=== PATIENT | male | born 1950 | race Caucasian/White ===

== ENCOUNTER → 2016-08-13 | Outpatient (CLI) | payer OTHER ==
[~2016-08-13] VITALS: Ht 170.2 cm; Wt 71.6 kg
[~2016-08-13] MED LIST: ALEVE220 MG PO; DOXYCYCLINE 10100 MG PO; FLEXERIL PO; FLOVENT HFA 1110 MCG INH; GABAPENTIN PO; HYDROCODON-ACE1 EAC1 PO; IBUPROFEN 800800 M1 PO; LYRICA100 MG PO; LYRICA150 MG PO; MS CONTIN15 MG PO; NABUMETONE 500500 M1 PO; NEURONTIN600 MG PO; NEURONTIN800 MG PO; NORCO 10-325 T1 EACH PO; OXYCODONE-ACET1 EACH PO; OXYCODONE-APAP1 EAC6 PO; PERCOCET 10-321 EACH PO; SIMVASTATIN40 MG PO; SPIRIVA INH; SYMBICORT160 MCG/4. INH; TRAMADOL 50 MG50 MG PO; TRILEPTAL 300300 MG PO; TRILEPTAL150 MG PO; VENTOLIN HFA 1818 GM INH; WELLBUTRIN 75 M75 M1 PO; WELLBUTRIN XL150 MG PO; ZANAFLEX4 MG PO
--- NOTE | ~2016-08-13 | HPC ---
[facility] [place] [address] PAIN MANAGEMENT CONSULTATION Name: HANSEL RAMIREZ Room #: REG ALEKSEY Clemente#: [id number] Admission: 08/13/16 Attend Phys: Mao Santizo DO Discharge: Date of : 48 Report #: [id number] THIS REPORT FOR: //name// CC: Arnulfo Santizo The patient is a 66-year-old gentleman long treated for DJD, right shoulder, presumed DJD bilateral knees, lumbar radiculopathy requiring complex medication management. Last seen in the pain clinic 06/15/2016. Continued on MS Contin 15 mg b.i.d., Percocet 7.5/325 four a day. Advised to stop smoking. Continued on gabapentin and Lyrica (using these together due to cost concerns, he would prefer Lyrica solely, but cannot afford it, he takes gabapentin 600 mg t.i.d. and Lyrica 150 mg at bedtime), Tegretol 200 mg b.i.d. The patient was given epidural injection at last visit with significant improvement of pain with gradual return to baseline pain, which he is now found profoundly excruciating pain in the low back, right greater than left leg. Does have significant loss of growth in the right leg due to muscle wasting. The knee actually is fairly unremarkable on physical exam. I had ordered x-rays in the distant past, these are only modestly degenerative. I had ordered an MRI of the lumbar spine back in June 2016 noting moderate neural foraminal stenosis at multiple levels with severe neural foraminal stenosis @ L5-S1; primary right-sided symptoms likely attributable to severe facet arthritis at L3-L4 resulting in right neural foraminal stenosis. ASSESSMENT: 1. Symptomatic lumbar radiculopathy secondary to spinal stenosis, chronic pain syndrome requiring complex medication management, degenerative joint disease affecting right shoulder and to some degree in knees. We reviewed the fact that opiate medications are being used to provide analgesia adequate to support activities of daily living, not attempting to achieve a specific pain score on the 0-10 Visual Analog Scale. The current opiate medications are providing sufficient analgesia to allow the patient to participate in activities of daily living. The patient is not exhibiting any aberrant behavior suggestive of drug diversion. The patient is not having any adverse reactions to medications. The patient is not suffering from daytime somnolence or mental acuity changes. The patient is managing opiate-induced constipation with appropriate jvdr-zac-[id number] agents and dietary considerations. The patient was counseled on concern for caution with operating a motor vehicle while using opiate medications. A physical exam was performed and the patient's functional status was evaluated. All patients with back pain were advised against the bed rest greater than 4 days and were advised to return to normal activities. Pain score assessment was noted and the treatment plan was reviewed with the patient. All current medications, both prescribed and OTC were reviewed and reconciled on the electronic medical record. Tobacco screening was accomplished and smoking [address] [address] PAIN MANAGEMENT CONSULTATION Name: HANSEL RAMIREZ Room #: REG ALEKSEY Clemente#: [id number] Admission: 08/13/16 Attend Phys: Mao Santizo DO Discharge: Date of : 48 Report #: [id number] cessation was advised when indicated. BMI was noted and diet/exercise modification was recommended for all patients following outside normal parameters. I reviewed with the patient today their responsibilities to safeguard prescription medications, reviewed their responsibility to utilize medications only as prescribed by the physician. They are to seek and receive pain medications only from 1 physician group ( [facility]). They are to use 1 pharmacy and keep the clinic informed if they change pharmacies. Their responsibilities include making followup visits in a timely fashion and to avoid abrupt discontinuation of medication usage. Their responsibilities further include bringing their medications (bottles from the pharmacy with residual pills) to the visit for possible confirmation of pill counts and the patient understands it is their responsibility to submit to random drug screens to ensure both that the medications prescribed are present, and that no other controlled substances are present. All prescriptions provided today were generated electronically. RECOMMENDATION: We have elected to increase his baseline opiate from MS Contin 15 mg b.i.d to t.i.d., continue Percocet 7.5/325 up to 4 a day. This will equal to a total of about 90 mEq of morphine a day. We did talk about opiate tolerance and general ceiling effect of opiate over about 100 mEq of morphine. Urine drug screen in April 2016 was positive for prescribed medication. 2. Acute exacerbation of lumbar radiculopathy secondary to spinal stenosis. RECOMMENDATIONS: Repeat epidural injection under fluoroscopy today. PROCEDURE NOTE: Lumbar epidural injection under fluoroscopy. PROCEDURE NOTE: After both written and informed consent to include risk of spinal cord damage, increased pain, weakness and dural puncture, the patient was taken to the fluoroscopy suite, placed in the prone position. After sterile prep and drape, a skin wheal with lidocaine was raised. A 22-gauge epidural Tuohy needle was inserted in the midline at L3-L4 with good loss to resistance. Negative aspiration for cerebrospinal fluid or blood was noted. Then 1 mL of Omnipaque under biplanar fluoroscopy showed good spread within the epidural space. This was followed with 80 mg of triamcinolone plus 1 mL of 1.5% preservative-free Xylocaine, 0.5 mL Xylocaine was then injected to flush the needle; it was removed. The patient was monitored for an appropriate period of time and discharged in good and stable condition. <ELECTRONICALLY SIGNED> By: Mao Santizo DO 08/17/16 0917 1619 [id number] Mao Santizo DO /nt
[2016-08-13 13:18] VITALS: BP 163/88
== END ==
LOC: PAIN 07:20
DX: M54.16 Radiculopathy, lumbar region (principal); M19.011 Primary osteoarthritis, right shoulder; M17.0 Bilateral primary osteoarthritis of knee; M48.06 Spinal stenosis, lumbar region

== ENCOUNTER → 2016-08-18 | Outpatient (CLI) | payer OTHER | LOC: RAD 02:05 | DX: J44.9 Chronic obstructive pulmonary disease, unspecified (principal); R06.02 Shortness of breath ==

== ENCOUNTER → 2016-11-12 | Outpatient (CLI) | payer OTHER | LOC: MRI 04:35 | DX: M41.86 Other forms of scoliosis, lumbar region (principal); M47.816 Spondylosis without myelopathy or radiculopathy, lumbar region; M54.5 Low back pain ==

== ENCOUNTER → 2016-11-30 | Outpatient (CLI) | payer OTHER ==
[~2016-11-30] VITALS: Ht 165.1 cm; Wt 71.3 kg
--- NOTE | ~2016-11-30 | HPC ---
[facility] [address] [address] PAIN MANAGEMENT CONSULTATION Name: STEPH RAMIREZLAS RUBI Room #: REG ALEKSEY Clemente#: [id number] Admission: 11/30/16 Attend Phys: Mao Santizo DO Discharge: Date of : 48 Report #: [id number] THIS REPORT FOR: //name// CC: Arnulfo Santizo HISTORY OF PRESENT ILLNESS: The patient is a 66-year-old gentleman typically treated for DJD affecting bilateral knees, right shoulder, lumbar scoliosis, lumbar spondylosis, lumbar radiculopathy, axial back pain requiring complex medication management. He was last seen in pain clinic 10/08/2016. Continued on baseline medications. The patient has been stable on MS 15 mg t.i.d. (increased from b.i.d. in August), Percocet 7.5/325 four a day, increased to 10 mg of Percocet 4 times a day at last visit. Has been continued on Lyrica 150 mg at bedtime with gabapentin 800 mg t.i.d. The mixed dosing had been because of cost concerns, he wanted to stay on Lyrica, but cost was onerous. He is taking 2400 mg of gabapentin and would like to try and wean off the Lyrica. He asked about increasing the gabapentin to four a day (3200 mg). Unfortunately, he does have a little pretibial edema, which I think would be exacerbated by increasing the gabapentin dose. Does take Trileptal 300 mg t.i.d., tizanidine 4 mg 3 times a day for spasms at the last visit. He has had epidural injections x 2 with only nominal relief. He returns to pain clinic today. We had a prolonged visit, spent counseling both the patient and his discussing his therapeutic options. He was seen from 13:27-13:55. Greater than 50% of this time was spent counseling the patient. The patient did get an MRI of the lumbar spine. I spent a good deal of time reviewing the findings with the patient and discussing using the plastic model spine, patient's specific symptoms. His primary radicular symptoms had been right thigh pain, which has been present for greater than a decade, more recently has had some left lower pain more in the L5 distribution. The MRI does note severe disk narrowing at L3-L4 with bilateral, right greater than left neural foraminal narrowing at L3-L4, again likely compromising that right L3 nerve root attributable to his chronic right anterior thigh pain. The L4-L5 and L5-S1 areas do show again disk narrowing with neural foraminal narrowing, little greater on the left, at both levels with canals narrowed to about 8 mm at L4-L5, but again this is less likely problematic. Does have grade 1 spondylolisthesis at L5-S1. Does have some scoliosis in the thoracolumbar spine, a severe leftward convex scoliosis is noted, there is 4 mm grade 1 anterolisthesis at L5 and S1. Fortunately, in comparison to an 06/11/2014 study, this 11/12/2016 study does show no change in the scoliosis, findings generally similar to 2013. Again, patient is complaining primarily of pain right anterior thigh, left posterior leg to the foot, notes perhaps 50-70% relief with the medications, [facility] [address] [place] [address] PAIN MANAGEMENT CONSULTATION Name: HANSEL RAMIREZ Room #: ROBERTO Clemente#: [id number] Admission: 11/30/16 Attend Phys: Mao Santizo, DO Discharge: Date of : 48 Report #: [id number] less relief with epidural injections. He does have an appointment to see Dr. Sourav Cohn at [facility] on Wednesday. We talked today about therapeutic options. He may benefit from a decompressive surgery, perhaps even fusion, but again we will defer to surgery. Regarding Lyrica, I gave patient samples with the 50 mg tablets, this dropped from his current 150 mg tablet 1 a day to two 50 mg tablets at bedtime for about 5 nights, of 100 mg dosage (and then dropped to 50 mg for about another 10 days and discontinue). I suspect he will not see significant change in neuropathic pain, given that he is already on 2400 mg of another calcium channel membrane stabilizing agent (gabapentin) and a therapeutic dose of a sodium channel membrane stabilizing agent (Trileptal 300 mg 3 times a day). We reviewed the fact that opiate medications are being used to provide analgesia adequate to support activities of daily living, not attempting to achieve a specific pain score on the 0-10 Visual Analog Scale. The current opiate medications are providing sufficient analgesia to allow the patient to participate in activities of daily living. The patient is not exhibiting any aberrant behavior suggestive of drug diversion. The patient is not having any adverse reactions to medications. The patient is not suffering from daytime somnolence or mental acuity changes. The patient is managing opiate-induced constipation with appropriate zruh-nvt-aeflwgi agents and dietary considerations. The patient was counseled on concern for caution with operating a motor vehicle while using opiate medications. A physical exam was performed and the patient's functional status was evaluated. All patients with back pain were advised against the bed rest greater than 4 days and were advised to return to normal activities. Pain score assessment was noted and the treatment plan was reviewed with the patient. All current medications, both prescribed and OTC were reviewed and reconciled on the electronic medical record. Tobacco screening was accomplished and smoking cessation was advised when indicated. BMI was noted and diet/exercise modification was recommended for all patients following outside normal parameters. I reviewed with the patient today their responsibilities to safeguard prescription medications, reviewed their responsibility to utilize medications only as prescribed by the physician. They are to seek and receive pain medications only from 1 physician group ([facility]). They are to use 1 pharmacy and keep the clinic informed if they change pharmacies. Their responsibilities include making followup visits in a timely fashion and to avoid abrupt discontinuation of medication usage. Their responsibilities further include bringing their medications (bottles from the pharmacy with residual pills) to the visit for possible confirmation of pill counts and the patient understands it is their responsibility to submit to random drug screens to ensure both that the medications prescribed are present, and that no other [address] [address] PAIN MANAGEMENT CONSULTATION Name: RAMIREZHANSEL RENICK Room #: REG ALEKSEY Clemente#: [id number] Admission: 11/30/16 Attend Phys: Mao Santizo DO Discharge: Date of : 48 Report #: [id number] controlled substances are present. All prescriptions provided today were generated electronically. PHYSICAL EXAMINATION: Shows a pleasant frustrated 66-year-old gentleman, BMI is 26.1 kilograms per meter squared. He continues to smoke greater than a pack a day. Blood pressure is 139/76, pulse 77, respirations 16. He is wearing his usual body armour, bilateral knee braces and an abdominal binder. Rises from chair using armrest, markedly antalgic gait. Lower extremity strength is symmetric. Positive straight leg raise on the left, slight decreased right hip flexion strength. ASSESSMENT: Symptomatic lumbar radiculopathy secondary to spinal stenosis, radiculopathy, scoliosis, axial back pain requiring complex medication management, stable on baseline medications. Last urine drug screen 04/13/2016 was positive for prescribed medications. RECOMMENDATIONS: Continue MS Contin 15 mg 3 times a day, Percocet 10/325 up to 4 a day, roughly equating to about 105 mEq of morphine a day. This is a theoretical ceiling dose. Continue gabapentin 800 mg t.i.d., wean Lyrica as noted above, continue Trileptal 300 mg t.i.d., tizanidine 4 mg t.i.d. and follow up simply 2 months for reevaluation. I did ask that he have copy of the consult from Dr. Cohn sent to our clinic. By: [id number] Mao Santizo DO /nt
[2016-11-30 13:17] VITALS: BP 139/76
== END | disposition home or self-care (01) ==
LOC: PAIN 07:47
DX: M48.06 Spinal stenosis, lumbar region (principal); G89.29 Other chronic pain; M41.86 Other forms of scoliosis, lumbar region; M54.9 Dorsalgia, unspecified; F17.210 Nicotine dependence, cigarettes, uncomplicated

== ENCOUNTER → 2016-12-29 | Outpatient (CLI) | payer OTHER | LOC: RAD 12:15 | DX: M41.86 Other forms of scoliosis, lumbar region (principal); M41.84 Other forms of scoliosis, thoracic region ==

== ENCOUNTER 2017-01-02 16:20 | Emergency (ER) | payer OTHER ==
[~2017-01-02] VITALS: Ht 165.1 cm; Wt 70.3 kg
--- NOTE | ~2017-01-02 | EKG ---
[address] [address] ELECTROCARDIOGRAM REPORT Name: RAMIREZHANSEL RUBI [facility] [id number] Admission: 01/02/17 Attend Phys: Discharge: 01/02/17 Date of : 48 Report #: [id number] THIS REPORT FOR: //name// [facility] ED Test Date: 2017-01-02 Test Time: 16:48:03 Pat Name: HANSEL RAMIREZ Department: Room: Gender: M [employer]: : 1950 Requested By: Andrea Cali Order Number: [id number] MD: Leoncio Beyer Measurements Intervals [place] Rate: 103 P: -71 CA: 188 QRS: 54 QRSD: 146 T: 237 QT: 336 QTc: 440 Interpretive Statements Sinus rhythm Left bundle branch block No previous ECG available for comparison Electronically Signed On 01-03-2017 20:18:56 CDT by Leoncio Beyer [email or web address] <ELECTRONICALLY SIGNED> By: Leoncio Beyer MD 01/03/172017 1648 1648 MD REFUGIO Branch
[2017-01-02 16:51] LABS: ABG SAMPLE TYPE ARTERIAL; BE(vivo) -0.8 mmol/L (-2 to +3); HCO3 23.2 mmol/L (22.0-26.0); LACTATE 1.12 mmol/L (0.5-2.0); O2(CT) 18.1 mL/dL (15.0-23.0); O2Hb 90.3 % (92.0-98.0); PCO2 36.5 mmHg (35.0-45.0); PO2 63.3 mmHg (80.0-100.0); pH 7.421 (7.360-7.450); sO2 92.8 % (92.0-98.0); tCO2 24.3 mmol/L (24.0-30.0)
[2017-01-02 16:52] LABS: STICK SITE R.RADIAL
[2017-01-02 17:10] LABS: ABSOLUTE NEUTROPHILS 5.2 thou/uL (1.4-8.2); BASOPHILS 0.6 % (0.0-2.0); EOSINOPHILS 6.6 % (0.0-3.0); HEMATOCRIT 39.3 % (42.0-52.0); HEMOGLOBIN 13.3 gm/dL (14.0-18.0); LYMPHOCYTES 23.3 % (24.0-44.0); MCH 28.9 pg (26.0-34.0); MCHC 33.9 g/dL (28.0-37.0); MCV 85.2 fL (80.0-100.0); MONOCYTES 9.7 % (1.0-8.0); PLATELET COUNT 365 thou/uL (150-400); POLYS 59.8 % (36.0-66.0); RBC 4.61 mil/uL (4.50-6.00); RDW 13.8 % (10.5-14.5); WBC 8.8 thou/uL (4.0-11.0)
[2017-01-02 17:11] LABS: MANUAL DIFF NO
[2017-01-02] MEDS ORDERED: ANORO ELLIPTA1 EACH IH (17:19)
[2017-01-02] MEDS ORDERED: CENTRUM SILVER1 EAC2 PO (17:20)
[2017-01-02] MEDS ORDERED: NEPHROCAPS SOFT1 CAP PO (17:20)
[2017-01-02] MEDS ORDERED: GLUCOSAMINE HC500 MG PO (17:20)
[2017-01-02] MEDS ORDERED: FISH OIL 1,001000 M2 PO (17:21)
[2017-01-02] MEDS ORDERED: PROBIOTIC1 EAC1 PO (17:21)
[2017-01-02 17:24] LABS: CALCIUM 9.7 mg/dL (8.5-10.1); CREATININE 0.7 mg/dL (0.7-1.3); POTASSIUM 4.7 mmol/L (3.5-5.1)
[2017-01-02 17:36] LABS: MAGNESIUM 2.1 mg/dL (1.8-2.4); TOTAL BILIRUBIN 0.2 mg/dL (<0.1-1.0); TOTAL PROTEIN 7.5 g/dL (6.4-8.2); TROPONIN-I 0.04 ng/mL (<0.04-0.07)
[2017-01-02] MEDS ORDERED: PREDNISONE 20 M20 MG PO (17:46)
== END 2017-01-02 18:44 | disposition home or self-care (01) ==
LOC: ER 16:20
PROVIDERS: Emergency Medicine
DX: J44.1 Chronic obstructive pulmonary disease with (acute) exacerbation (principal); M54.40 Lumbago with sciatica, unspecified side; M41.9 Scoliosis, unspecified; F17.210 Nicotine dependence, cigarettes, uncomplicated; Z98.890 Other specified postprocedural states; Z85.51 Personal history of malignant neoplasm of bladder

== ENCOUNTER 2017-01-13 00:49 | Emergency (ER) | payer OTHER ==
[~2017-01-13] VITALS: Ht 175.3 cm; Wt 65.8 kg
--- NOTE | ~2017-01-13 | EKG ---
[place] [address] [facility] [employer] [place] [address] ELECTROCARDIOGRAM REPORT Name: HANSEL RAMIREZ RUBI [facility] [id number] Admission: 01/13/17 Attend Phys: Discharge: 01/13/17 Date of : 48 Report #: [id number] THIS REPORT FOR: //name// [facility] ED Test Date: 2017-01-13 Test Time: 00:54:29 Pat Name: HANSEL RAMIREZ Department: Room: Gender: M [employer]: : 1950 Requested By: Lisette Malagon Order Number: [id number] MD: Terrell Ram Measurements Intervals [place] Rate: 109 P: 0 UT: 170 QRS: 55 QRSD: 150 T: 234 QT: 340 QTc: 458 Interpretive Statements Sinus tachycardia Left bundle branch block Baseline wander in lead(s) II,aVR Compared to ECG 01/02/2017 16:48:03 No significant changes found Electronically Signed On 01-13-2017 8:41:52 CDT by Terrell Ram [email or web address] <ELECTRONICALLY SIGNED> By: Terrell Ram MD, [facility] 01/13/17 0841 Terrell Ram MD, [facility] /EPI
[~2017-01-13 00:49] MED LIST changes: +ANORO ELLIPTA1 EACH IH; +CENTRUM SILVER1 EAC2 PO; +FISH OIL 1,001000 M2 PO; +GLUCOSAMINE HC500 MG PO; +NEPHROCAPS SOFT1 CAP PO; +PREDNISONE 20 M20 MG PO; +PROBIOTIC1 EAC1 PO
[2017-01-13 01:05] LABS: EOSINOPHILS 5.7 % (0.0-3.0); HEMATOCRIT 43.4 % (42.0-52.0); HEMOGLOBIN 14.3 gm/dL (14.0-18.0); LYMPHOCYTES 38.4 % (24.0-44.0); MCH 28.6 pg (26.0-34.0); MCV 86.7 fL (80.0-100.0); MONOCYTES 8.2 % (1.0-8.0); PLATELET COUNT 380 thou/uL (150-400); POLYS 46.7 % (36.0-66.0); RBC 5.01 mil/uL (4.50-6.00); RDW 14.1 % (10.5-14.5); WBC 10.7 thou/uL (4.0-11.0)
[2017-01-13 01:09] LABS: MANUAL DIFF NO
[2017-01-13 01:09] LABS: ABG SAMPLE TYPE ARTERIAL; HCO3 24.2 mmol/L (22.0-26.0); LACTATE 1.63 mmol/L (0.5-2.0); O2(CT) 21.4 mL/dL (15.0-23.0); O2Hb 97.7 % (92.0-98.0); PCO2 51.6 mmHg (35.0-45.0); PO2 548.6 mmHg (80.0-100.0); STICK SITE L.BRACHIAL; pH 7.289 (7.360-7.450); sO2 99.9 % (92.0-98.0); tCO2 25.8 mmol/L (24.0-30.0)
[2017-01-13 01:10] LABS: Pressure Support 10 cm H20
[2017-01-13 01:10] LABS: ANION GAP 10 mmol/L (7-16); BUN 19 mg/dL (7-18); CALCIUM 9.4 mg/dL (8.5-10.1); CHLORIDE 95 mmol/L (98-107); CO2 26 mmol/L (21-32); CREATININE 0.8 mg/dL (0.7-1.3); GLUCOSE 222 mg/dL (74-106); POTASSIUM 4.3 mmol/L (3.5-5.1); SODIUM 131 mmol/L (136-145)
[2017-01-13 01:23] LABS: NT-PRO BRAIN NAT PEPTIDE 1577 pg/mL (<300); TROPONIN-I < 0.04 ng/mL (<0.04-0.07)
[2017-01-13] MEDS ORDERED: PREDNISONE50 MG PO (02:35)
== END 2017-01-13 02:52 | disposition home or self-care (01) ==
LOC: ER 00:49
PROVIDERS: Emergency Medicine
DX: J44.1 Chronic obstructive pulmonary disease with (acute) exacerbation (principal); F17.210 Nicotine dependence, cigarettes, uncomplicated; F10.99 Alcohol use, unspecified with unspecified alcohol-induced disorder; Z98.890 Other specified postprocedural states

== ENCOUNTER 2017-01-16 07:16 | Inpatient (IN) | payer OTHER ==
[~2017-01-16] VITALS: Ht 165.1 cm; Wt 66.2 kg
--- NOTE | ~2017-01-16 | HC ---
[facility] [place] [address] CONSULTATION Name: HANSEL RAMIREZ GAP Room #: 312-P ADM IN M.R.#: [id number] Admission: 01/16/17 Attend Phys: Kenneth Bermudez MD Discharge: Date of : 48 Report #: [id number] THIS REPORT FOR: //name// CC: Arnulfo Bermudez DATE OF SERVICE: 01/16/2017 REASON FOR CONSULTATION: Exacerbation of chronic obstructive pulmonary disease. IMPRESSION: 1. Exacerbation of chronic obstructive pulmonary disease. 2. Possible cor pulmonale. 3. Bullous emphysema. 4. Indeterminate soft tissue fullness in upper abdomen, follow up per primary. 5. Elevated BNP. 6. Leukocytosis. 7. Normocytic anemia. 8. History of bladder cancer. 9. History of depression. 10. Tobacco abuse. PLAN: 1. IV corticosteroids, antibiotics and do sputum aerosol therapy. Monitor sat, may need home O2 in a sleep study. 2. We will mildly diurese. We will check echo for pulmonary hypertension. HISTORY OF PRESENT ILLNESS: This is a very pleasant 66-year-old male comes in with shortness of breath. He has been in ER 01/02/2017, 01/13/2017 actually received BiPAP on that day, but wanted to go home and admitted today because of exacerbation. He relates he continues to have periods of shortness breath, was seen by Dr. Saha yesterday and had his medications change last night and could not do a breathing treatment. He does not have home O2. This a.m. he felt like he could not breathe, cough in the morning, some sputum production and discussed with Dr. Malagon. PAST MEDICAL HISTORY: Surgeries include appendectomy, bladder tumor excision 2002, 2003, hernia repair, kidney stone removal. FAMILY HISTORY: Positive for Alzheimer, breast CA, heart disease and hyperlipidemia. SOCIAL HISTORY: Positive tobacco, approximately 50 years. Positive ETOH 1-2 drinks a week. ALLERGIES: No known. [facility] [address] [place] [address] CONSULTATION Name: HANSEL RAMIREZ GAP Room #: [address] [place] [address] [place] .R.#: [id number] Admission: 01/16/17 Attend Phys: Kenneth Bermudez MD Discharge: Date of : 46 Report #: [id number] REVIEW OF SYSTEMS: Wears glasses, shortness breath, cough, phlegm production peripheral edema, occasional indigestion, no hemoptysis, hematemesis or hematuria. HOME MEDICATIONS: Included prednisone, B complex, glucosamine, bupropion, gabapentin, DuoNeb, morphine, probiotics, simvastatin, Anoro and Ventolin. PHYSICAL EXAMINATION: VITAL SIGNS: BP initially 181/105, pulse 106, respirations 17. Pulse ox 96% on 2 liters. HEENT: Eyes, negative icterus. NECK: Negative JVD. Mallampati 2. LUNGS: Decreased breath sounds bilaterally with wheeze and cough. HEART: Regular. ABDOMEN: Bowel sounds present. EXTREMITIES: Showed positive edema. Moves all. NEUROLOGIC: Alert and oriented. LABORATORY DATA: A CT PE protocol showed no emboli, mild scarring, atelectasis posterior lower lungs, mild bullous emphysematous changes indeterminate, soft tissue fullness visualized upper abdomen. BUN 20, creatinine 0.7. ProBNP 1261. White count 11.3, hemoglobin 13.4, platelets 369, no bands. PH 7.457, pCO2 of 37, pO2 of 58.5 on room air. We will follow closely with you. By: 0950 23 Aimee Boyce MD /nt
--- NOTE | ~2017-01-16 | 2DMMODE ---
[facility] [place] [employer] [address] 2 D/M-MODE ECHOCARDIOGRAM Name: RAMIREZHANSEL RAY Room #: 312-P [facility] IN .R.#: [id number] Admission: 01/16/17 Attend Phys: Arnulfo Yeung, Discharge: Date of : 46 Date of Service: 01/18/17 1218 Report #: [id number] THIS REPORT FOR: //name// APPROVED REPORT Study performed: 01/18/2017 09:28:56 EXAM: Comprehensive 2D, Doppler, and color-flow Echocardiogram Patient Location: Bedside Room #: 312 Other Information Study Quality: Technically Difficult Indications COPD Dyspnea 2D Dimensions RVDd: 42.24 mm LVEF(%): 53.86 (>50%) IVSd: 13.99 (7-11mm) LVOT Diam: 20.24 (18-24mm) LVDd: 43.56 mm PWd: 12.97 (7-11mm) Ascending Ao: 29.64 (22-36mm) LVDs: 31.53 (25-40mm) Aortic Root: 30.05 mm IVC: 10.00 mm Edwards's LVEF: 53.86 % Volumes Left Atrial Volume (Systole) Single Plane 4CH: 29.56 mL Single Plane 2CH: 63.00 mL LA ESV Index: 29.00 mL/m2 Aortic Valve AoV Peak Osmel.: 2.11 m/s AO Peak Gr.: 17.89 mmHg LVOT Max P.11 mmHg LVOT Max V: 1.24 m/s OCTAVIO Vmax: 1.88 cm2 Mitral Valve E/A Ratio: 0.6 MV Decel. Time: 163.38 ms MV E Max Osmel.: 1.01 m/s MV A Osmel.: 1.68 m/s MV PHT: 47.38 ms [facility] [place] [address] 2 D/M-MODE ECHOCARDIOGRAM Name: HANSEL RAMIREZ LOCKHART Room #: 312-P [facility] IN ..#: [id number] Admission: 01/16/17 Attend Phys: Arnulfo Yeung, Discharge: Date of : 46 Date of Service: 01/18/17 1218 Report #: [id number] IVRT: 155.71 ms Pulmonary Valve PV Peak Osmel.: 1.40 m/s PV Peak Gr.: 7.82 mmHg Pulmonary Vein P Vein S: 0.67 m/s P Vein A: 0.21 m/s P Vein D: 0.64 m/s P Vein A Dur.: 72.7 msec P Vein S/D Ratio: 1.05 Tricuspid Valve RAP Estimate: 5.00 mmHg Left Ventricle The left ventricle is normal size. Mild to moderate left ventricular hypertrophy. The left ventricular systolic function is normal. The left ventricular ejection fraction is within the normal range. LVEF is 55%. Grade I - abnormal relaxation pattern. Right Ventricle Right ventricle is dilated. The right ventricular systolic function is normal. Atria Left atrium is at the upper limits of normal. Right atrium is at the upper limits of normal. Aortic Valve The aortic valve is not well visualized. Trace aortic regurgitation. There is no aortic valvular stenosis. Mitral Valve The mitral valve is normal in structure. There is no mitral valve regurgitation noted. No evidence of mitral valve stenosis. Tricuspid Valve The tricuspid valve is normal in structure. There is no tricuspid valve regurgitation noted. Unable to assess PA pressure. Pulmonic Valve Pulmonic valve is not well visualized. There is no pulmonic valvular regurgitation. Great Vessels The aortic root is normal in size. IVC is normal in size and collapses >50% with inspiration. [facility] [address] [place] [address] 2 D/M-MODE ECHOCARDIOGRAM Name: RAMIREZHANSEL LOCKHART Room #: 312-P [facility] IN [facility]#: [id number] Admission: 01/16/17 Attend Phys: Arnulfo Yeung, Discharge: Date of : 46 Date of Service: 01/18/17 1218 Report #: [id number] Pericardium There is no pericardial effusion. There is no pleural effusion. <Conclusion> The left ventricle is normal size. LVEF is 55%. Right ventricle is dilated. The aortic valve is not well visualized. Trace aortic regurgitation. The mitral valve is normal in structure. The tricuspid valve is normal in structure. <ELECTRONICALLY SIGNED> By: Tyshawn Cavanaugh MD 01/18/17 1218 1218 1218 Tyshawn Cavanaugh MD /INF
[~2017-01-16 07:16] MED LIST changes: +PREDNISONE50 MG PO
[2017-01-16 07:17] VITALS: BP 181/105
[2017-01-16] MEDS ORDERED: LYRICA 50 MG50 MG PO (07:26)
[2017-01-16] MEDS ORDERED: WELLBUTRIN XL300 MG PO (07:26)
[2017-01-16 07:36] LABS: ABG SAMPLE TYPE ARTERIAL; BE(vivo) 1.9 mmol/L (-2 to +3); HCO3 25.5 mmol/L (22.0-26.0); LACTATE 1.23 mmol/L (0.5-2.0); O2(CT) 17.5 mL/dL (15.0-23.0); O2Hb 89.7 % (92.0-98.0); PO2 58.5 mmHg (80.0-100.0); STICK SITE R.RADIAL; pH 7.457 (7.360-7.450); sO2 91.8 % (92.0-98.0); tCO2 26.7 mmol/L (24.0-30.0)
[2017-01-16 07:38] LABS: ABSOLUTE NEUTROPHILS 5.7 thou/uL (1.4-8.2); EOSINOPHILS 0.9 % (0.0-3.0); HEMATOCRIT 39.4 % (42.0-52.0); HEMOGLOBIN 13.4 gm/dL (14.0-18.0); LYMPHOCYTES 41.2 % (24.0-44.0); MCH 28.6 pg (26.0-34.0); MCHC 34.1 g/dL (28.0-37.0); MCV 84.1 fL (80.0-100.0); MONOCYTES 6.6 % (1.0-8.0); PLATELET COUNT 369 thou/uL (150-400); POLYS 50.3 % (36.0-66.0); RBC 4.69 mil/uL (4.50-6.00); RDW 14.3 % (10.5-14.5); WBC 11.3 thou/uL (4.0-11.0)
[2017-01-16 07:40] LABS: MANUAL DIFF NO
[2017-01-16 07:49] LABS: CALCIUM 9.8 mg/dL (8.5-10.1); CREATININE 0.7 mg/dL (0.7-1.3); POTASSIUM 4.1 mmol/L (3.5-5.1)
[2017-01-16 10:28] VITALS: BP 138/65
[2017-01-16 11:13] VITALS: BP 174/105
[2017-01-16 17:21] VITALS: BP 142/68
[2017-01-16 20:08] VITALS: BP 149/77
[2017-01-16 23:40] VITALS: BP 155/74
[2017-01-17 04:00] VITALS: BP 169/84
[2017-01-17 04:47] LABS: ABSOLUTE NEUTROPHILS 7.9 thou/uL (1.4-8.2); BASOPHILS 0.1 % (0.0-2.0); HEMOGLOBIN 12.9 gm/dL (14.0-18.0); LYMPHOCYTES 15.6 % (24.0-44.0); MCH 28.4 pg (26.0-34.0); MCHC 33.1 g/dL (28.0-37.0); MCV 85.6 fL (80.0-100.0); MONOCYTES 4.1 % (1.0-8.0); PLATELET COUNT 369 thou/uL (150-400); POLYS 80.2 % (36.0-66.0); RBC 4.56 mil/uL (4.50-6.00); RDW 14.5 % (10.5-14.5); WBC 9.8 thou/uL (4.0-11.0)
[2017-01-17 04:53] LABS: MANUAL DIFF NO
[2017-01-17 05:01] LABS: CALCIUM 9.6 mg/dL (8.5-10.1); CREATININE 0.8 mg/dL (0.7-1.3); POTASSIUM 4.3 mmol/L (3.5-5.1)
[2017-01-17] MEDS ORDERED: GABAPENTIN800 M1 PO (05:39)
[2017-01-17 07:45] VITALS: BP 146/80
[2017-01-17 15:54] VITALS: BP 149/78
[2017-01-17 19:58] VITALS: BP 145/82
[2017-01-18 04:17] VITALS: BP 150/79
[2017-01-18 07:20] VITALS: BP 156/90
[2017-01-18 20:25] VITALS: BP 160/88
[2017-01-19 04:25] VITALS: BP 168/98
[2017-01-19 07:31] VITALS: BP 157/81
[2017-01-19] MEDS ORDERED: DOXYCYCLINE 10100 MG PO (10:29)
[2017-01-19] MEDS ORDERED: SYMBICORT160 MCG/4. INH (10:30)
[2017-01-19] MEDS ORDERED: XANAX 0.5 MG0.5 MG PO (10:31)
[2017-01-19 14:43] VITALS: BP 157/81
[2017-01-19 15:28] VITALS: BP 157/81
[2017-01-21] MEDS ORDERED: XANAX 0.5 MG0.5 MG PO (12:49)
[2017-01-21] MEDS ORDERED: SYMBICORT160 MCG/4. INH (12:50)
[2017-01-21] MEDS ORDERED: MS CONTIN15 MG PO (13:07)
[2017-01-21] MEDS ORDERED: PERCOCET 7.5-31 EACH PO (13:07)
[2017-01-21] MEDS ORDERED: OXYCODONE-APAP1 EAC6 PO (13:07)
== END 2017-01-19 16:07 | disposition home or self-care (01) | DRG 291 ==
LOC: ER 07:16 → 3N 09:38 → EROBS 09:38 → 3N 10:02
PROVIDERS: Emergency Medicine; Family Medicine
DX: I11.0 Hypertensive heart disease with heart failure (principal); J96.21 Acute and chronic respiratory failure with hypoxia; J44.1 Chronic obstructive pulmonary disease with (acute) exacerbation; I50.43 Acute on chronic combined systolic (congestive) and diastolic (congestive) heart failure; F41.9 Anxiety disorder, unspecified; M41.9 Scoliosis, unspecified; F17.210 Nicotine dependence, cigarettes, uncomplicated; D72.829 Elevated white blood cell count, unspecified; D64.9 Anemia, unspecified; F32.9 Major depressive disorder, single episode, unspecified; I27.2 Other secondary pulmonary hypertension; Z71.6 Tobacco abuse counseling; Z85.51 Personal history of malignant neoplasm of bladder; Z82.0 Family history of epilepsy and other diseases of the nervous system; Z82.49 Family history of ischemic heart disease and other diseases of the circulatory system; Z83.49 Family history of other endocrine, nutritional and metabolic diseases
CPT/HCPCS: 10795

== ENCOUNTER → 2017-01-21 | Outpatient (CLI) | payer OTHER ==
[~2017-01-21] VITALS: Ht 165.1 cm; Wt 63.0 kg
[~2017-01-21] MED LIST changes: +GABAPENTIN800 M1 PO; +LYRICA 50 MG50 MG PO; +PERCOCET 7.5-31 EACH PO; +WELLBUTRIN XL300 MG PO; +XANAX 0.5 MG0.5 MG PO
--- NOTE | ~2017-01-21 | HPC ---
[facility] [place] [address] PAIN MANAGEMENT CONSULTATION Name: JAMESHANSEL RUBI Room #: REG Yoav Clemente#: [id number] Admission: 01/21/17 Attend Phys: Mao Santizo DO Discharge: Date of : 48 Report #: [id number] THIS REPORT FOR: //name// CC: Arnulfo Santizo The patient is a 66-year-old gentleman well known to the pain clinic. I have long treated him for DJD affecting bilateral knees, and right shoulder pain. He has thoracolumbar scoliosis and spondylosis. Last seen in pain clinic, 11/30/2016, continued on baseline medication including MS Contin 15 mg t.i.d. and Percocet 7.5/325 four times a day, gabapentin was increased from 800 mg t.i.d. to q.i.d. and we discontinued Lyrica. He uses Trileptal 300 mg t.i.d. as well with muscle spasm medication, tizanidine 4 mg t.i.d. Last urine drug screen 04/13/2016 was positive for prescribed medications. The patient returns to pain clinic today, we had a prolonged visit from 12:51-13:18. Greater than 50% of this 25+ minute visit was spent counseling the patient. In the interval since I saw him, he was admitted to the hospital January 16 through the with exacerbation of COPD. He has been a chronic smoker and I have admonished him routinely to quit smoking. He was apparently admitted to the hospital on his third acute exacerbation of COPD and actually had a fairly significant fright to the point that he is now a nonsmoker. He is doing pulmonary rehab. He presents to the pain clinic today in the company of his . He did finally accomplish the CT myelogram that we had been working to get, this was accomplished 11/12/2016 at [facility], 12/16/2016. We reviewed those results, he has lumbar scoliosis with severe chronic degenerative changes throughout the lumbar spine, lateral translation of L1 to the right of L2, translation of L3 to the left of L4 and L4 to the left of L5, right lateral recess stenosis with severe right neural foraminal stenosis at L1-L2, severe right neural foraminal stenosis at L2-L3, severe spinal stenosis at L3-L4 with bilateral neural foraminal stenosis. L5 superior facet projects into the left side of spinal canal at L4-L5, moderate bilateral L4-L5 neural foraminal stenosis, spondylolisthesis at L4-L5 with severe left apophyseal joint disease, severe, left L5-S1 neural foraminal stenosis. The patient apparently has an appointment next week to see Dr. Darius Orta for discussion on possible surgical intervention. Given his rather tenuous pulmonary status, I really suspect he is not going to be a candidate for fairly extensive surgery. The patient notes his pain is a 5 on a 0-10 visual analog scale. [place] [address] PAIN MANAGEMENT CONSULTATION Name: HANSEL RAMIREZ Room #: REG ALEKSEY Clemente#: [id number] Admission: 01/21/17 Attend Phys: Mao Santizo, DO Discharge: Date of : 48 Report #: [id number] okay in the pool, but any time he does any land exercises, pain significantly interferes with function. He is using a cane in his right hand. Pain is right greater than left low back and legs. PHYSICAL EXAMINATION: Otherwise unchanged. A 66-year-old gentleman, BMI is 23.1 kilograms per meter squared. Blood pressure 155/80, pulse 89, respirations 16, room air oxygen saturation is 90% and is actually pretty good for him. Markedly antalgic gait, kyphotic, scoliotic back. Diffuse axial tenderness. He is wearing an abdominal binder as well as a right knee brace. We reviewed the fact that opiate medications are being used to provide analgesia adequate to support activities of daily living, not attempting to achieve a specific pain score on the 0-10 Visual Analog Scale. The current opiate medications are providing sufficient analgesia to allow the patient to participate in activities of daily living. The patient is not exhibiting any aberrant behavior suggestive of drug diversion. The patient is not having any adverse reactions to medications. The patient is not suffering from daytime somnolence or mental acuity changes. The patient is managing opiate-induced constipation with appropriate tmbw-gkf-talwwfj agents and dietary considerations. The patient was counseled on concern for caution with operating a motor vehicle while using opiate medications. A physical exam was performed and the patient's functional status was evaluated. All patients with back pain were advised against the bed rest greater than 4 days and were advised to return to normal activities. Pain score assessment was noted and the treatment plan was reviewed with the patient. All current medications, both prescribed and OTC were reviewed and reconciled on the electronic medical record. Tobacco screening was accomplished and smoking cessation was advised when indicated. BMI was noted and diet/exercise modification was recommended for all patients following outside normal parameters. I reviewed with the patient today their responsibilities to safeguard prescription medications, reviewed their responsibility to utilize medications only as prescribed by the physician. They are to seek and receive pain medications only from 1 physician group ( [facility]). They are to use 1 pharmacy and keep the clinic informed if they change pharmacies. Their responsibilities include making followup visits in a timely fashion and to avoid abrupt discontinuation of medication usage. Their responsibilities further include bringing their medications (bottles from the pharmacy with residual pills) to the visit for possible confirmation of pill counts and the patient understands it is their responsibility to submit to random drug screens to ensure both that the medications prescribed are present, and that no other controlled substances are present. All prescriptions provided today were generated electronically. [address] [address] PAIN MANAGEMENT CONSULTATION Name: HANSEL RAMIREZ RUBI [facility] [id number] Admission: 01/21/17 Attend Phys: Mao Santizo DO Discharge: Date of : 48 Report #: [id number] ASSESSMENT: Chronic pain, degenerative joint disease affecting knees and right shoulder, thoracolumbar spondylosis and scoliosis. RECOMMENDATION: Long discussion with the patient today about therapeutic option. ____ we have elected to continue schedule 2 narcotic unchanged. I will be curious to see what the surgical consultants feel is appropriate for his back. If he is not a surgical candidate and he has ongoing pain, we could consider spinal cord stimulator trial. It may help with some of the radicular component of back pain, although his arthritic pain would not be addressed with this to any appreciable fashion. The patient was discharged in good and stable condition after prolonged visit. Follow up in 2 months for reevaluation, earlier if needed. By: [id number] 11 Mao Santizo DO /giselle
[2017-01-21 12:42] VITALS: BP 155/80
== END | disposition home or self-care (01) ==
LOC: PAIN
DX: M17.0 Bilateral primary osteoarthritis of knee (principal); M19.011 Primary osteoarthritis, right shoulder; G89.29 Other chronic pain; M47.895 Other spondylosis, thoracolumbar region; J44.1 Chronic obstructive pulmonary disease with (acute) exacerbation; F11.20 Opioid dependence, uncomplicated; M41.85 Other forms of scoliosis, thoracolumbar region; Z87.891 Personal history of nicotine dependence; Z98.890 Other specified postprocedural states

== ENCOUNTER → 2017-03-25 | Outpatient (CLI) | payer OTHER ==
[~2017-03-25] VITALS: Ht 165.1 cm; Wt 68.0 kg
[~2017-03-25] MED LIST changes: +PREDNISONE 10 M10 MG PO; +PREDNISONE 5 MG5 M1 PO
--- NOTE | ~2017-03-25 | HPC ---
[address] [address] PAIN MANAGEMENT CONSULTATION Name: HANSEL RAMIREZ Room #: REG [facility] Chyna#: [id number] Admission: 03/25/17 Attend Phys: Mao Santizo DO Discharge: Date of : 48 Report #: [id number] THIS REPORT FOR: //name// CC: Arnulfo Santizo The patient is a 66-year-old gentleman who long known to the pain clinic, typically treated for thoracolumbar scoliosis and spondylosis, DJD affecting bilateral knees and right shoulder, COPD, tobacco habituation, requiring complex medication management. Last seen in the pain clinic on 01/21/2017, at that time, he had been admitted to the hospital in mid December for exacerbation of COPD. He was actually oxygen dependent at that time that I saw him. He had a significant scare with that hospitalization and to his credit, he finally after 50 years, has become a nonsmoker. Today, I am pleased to note that he is not requiring supplemental oxygen. He is doing pulmonary rehab. He presents to the pain clinic today. We actually had a prolonged visit from 12:49-13:15, greater than 50% of this 25+ minute visit was spent counseling the patient. I have referred the patient to Dr. Darius Orta for consideration for surgical intervention of his rather complex spine. We reviewed his MRI from 11/12/2016, lumbar spine noting severe leftward convex lumbar scoliosis, severe multilevel lumbar spondylosis with altered neural foraminal narrowing at multiple levels including severe bilateral neural foraminal stenosis, marked left lateral neural foraminal stenosis at L4-L5, left neural foraminal stenosis at L5-S1, severe disk space narrowing and disk osteophyte complex at L3-L4 with advanced bilateral facet arthrosis and effacement of the thecal sac at this level, severe bilateral neural foraminal narrowing, slightly greater on the right at this L3-L4 level. L2-L3 notes right greater than left bilateral neural foraminal stenosis, L1-L2 notes left greater than right neural foraminal stenosis. Dr. Orta suggested if surgery were required, it would be fairly extensive decompression and fusion. Given pulmonary status, general osteoporosis and fairly dramatic surgical requirement, the patient is not a good candidate at this point. Again, we are simply trying to manage pain concerns. He does fortunately have adequate lower extremity strength. The patient has started doing a water therapy and is noticing significant improvement in functional status and diminution in pain. It is also helping with his pulmonary status as well. When his physical therapy through Medicare ended, he joined [facility] where they have a 92 degrees pool. He is going by weekly. Both he and his quit smoking together and are doing water aerobics together. I congratulated the patient and encouraged him to continue with both endeavors. [address] [address] PAIN MANAGEMENT CONSULTATION Name: HANSEL RAMIREZ Room #: REG ALEKSEY Clemente#: [id number] Admission: 03/25/17 Attend Phys: Mao Santizo DO Discharge: Date of : 48 Report #: [id number] The patient presents to the pain clinic today ostensibly for medication management. He is on multiple medications including Trileptal 300 mg 3 times a day, gabapentin 800 mg 4 times a day, both helped with neuropathic mediated pain. Tizanidine 4 mg t.i.d. for ongoing muscle spasm. Scheduled II opiate analgesics include baseline MS Contin 15 mg 3 times a day and Percocet 7.5/325, typically 4 tablets a day. PHYSICAL EXAMINATION: Shows 66-year-old gentleman, BMI is 25 kilograms per meter squared. Again, he has not wearing supplemental oxygen. Room air oxygen saturation is 95%, blood pressure 153/77, pulse 85, respirations 16. He is wearing his usual abdominal binder belt with suspenders and bilateral knee neoprene knee "sleeves" with appropriate patella cutouts. He rises from the chair using armrest, has stooped posture, significant thoracolumbar scoliosis. Lumbar flexion is limited. Gait is antalgic. Lower extremity strength is diminished, but symmetric. Straight leg raise is only nominally positive bilaterally. We reviewed the fact that opiate medications are being used to provide analgesia adequate to support activities of daily living, not attempting to achieve a specific pain score on the 0-10 Visual Analog Scale. The current opiate medications are providing sufficient analgesia to allow the patient to participate in activities of daily living. The patient is not exhibiting any aberrant behavior suggestive of drug diversion. The patient is not having any adverse reactions to medications. The patient is not suffering from daytime somnolence or mental acuity changes. The patient is managing opiate-induced constipation with appropriate evki-hiu-lewoxcg agents and dietary considerations. The patient was counseled on concern for caution with operating a motor vehicle while using opiate medications. A physical exam was performed and the patient's functional status was evaluated. All patients with back pain were advised against the bed rest greater than 4 days and were advised to return to normal activities. Pain score assessment was noted and the treatment plan was reviewed with the patient. All current medications, both prescribed and OTC were reviewed and reconciled on the electronic medical record. Tobacco screening was accomplished and smoking cessation was advised when indicated. BMI was noted and diet/exercise modification was recommended for all patients following outside normal parameters. I reviewed with the patient today their responsibilities to safeguard prescription medications, reviewed their responsibility to utilize medications only as prescribed by the physician. They are to seek and receive pain medications only from 1 physician group ( [facility]). They are to use 1 pharmacy and keep the clinic informed if they change pharmacies. Their responsibilities include making followup visits in a timely fashion and to avoid [facility] [address] [place] [address] PAIN MANAGEMENT CONSULTATION Name: HANSEL RAMIREZ Room #: REG [facility] Chyna#: [id number] Admission: 03/25/17 Attend Phys: Mao Santizo DO Discharge: Date of : 48 Report #: [id number] abrupt discontinuation of medication usage. Their responsibilities further include bringing their medications (bottles from the pharmacy with residual pills) to the visit for possible confirmation of pill counts and the patient understands it is their responsibility to submit to random drug screens to ensure both that the medications prescribed are present, and that no other controlled substances are present. All prescriptions provided today were generated electronically. ASSESSMENT: Thoracolumbar scoliosis and spondylosis, degenerative joint disease affecting bilateral knees and right shoulder, chronic pain syndrome requiring complex medication management, chronic obstructive pulmonary disease, recently quit tobacco after 50 year smoking and a 100-pack year smoking history. Last urine drug screen on 04/13/2016 was positive for prescribed medications. Buccal drug swab was accomplished today. No aberrant behavior suggestive for drug diversion, simply complying with our opiate consent to treat contract. I have elected to continue baseline medication unchanged, the patient does not require Trileptal, gabapentin or tizanidine prescriptions. I did write for MS Contin 15 mg t.i.d. and Percocet 7.5/325 up to 4 a day. Follow up in 2 months for reevaluation. Discharged in good and stable condition after prolonged visit, greater than 50% of time spent counseling the patient. <ELECTRONICALLY SIGNED> By: Mao Santizo DO 03/26/17 1225 [id number] Mao Santizo DO /nt
[2017-03-25 12:43] VITALS: BP 153/77
== END ==
LOC: PAIN 07:00
DX: M47.895 Other spondylosis, thoracolumbar region (principal); M41.85 Other forms of scoliosis, thoracolumbar region; M17.0 Bilateral primary osteoarthritis of knee; M19.011 Primary osteoarthritis, right shoulder; J44.9 Chronic obstructive pulmonary disease, unspecified; G89.29 Other chronic pain; Z87.891 Personal history of nicotine dependence

== ENCOUNTER → 2017-05-20 | Outpatient (CLI) | payer OTHER ==
[~2017-05-20] VITALS: Ht 165.1 cm; Wt 70.8 kg
[~2017-05-20] MED LIST changes: +CYMBALTA30 MG PO
--- NOTE | ~2017-05-20 | HPC ---
[facility] [address] [place] [address] PAIN MANAGEMENT CONSULTATION Name: HANSEL RAMIREZ Room #: REG [facility] Chyna#: [id number] Admission: 05/20/17 Attend Phys: Mao Santizo DO Discharge: Date of : 48 Report #: [id number] THIS REPORT FOR: //name// CC: Arnulfo Santizo HISTORY OF PRESENT ILLNESS: The patient is a 66-year-old gentleman being treated for significant thoracolumbar scoliosis, spondylosis, DJD affecting knees and shoulders, COPD requiring high risk complex medication management. Last seen in the pain clinic on 03/25/2017. The patient had seen Dr. Darius Orta for consideration for surgical intervention of his rather complex spine. He has severe leftward convex lumbar scoliosis, severe multilevel lumbar spondylosis, altered neural foraminal narrowing at multiple levels including severe bilateral neural foraminal stenosis, most marked left neural foraminal stenosis at L4-L5, left neural foraminal stenosis at L5-S1, severe disk space narrowing and disk osteophyte complex at L3-L4 with advanced bilateral facet arthrosis. Ultimately surgery was felt to be extremely invasive, he has general osteoporosis and poor pulmonary function, it was felt that he was not a good surgical candidate. We have continued to manage the patient medically. He has been generally stable on Percocet 7.5 up to 4 a day, MS Contin 15 mg q. 8 hours, tizanidine 4 mg for spasm, Trileptal 300 mg t.i.d., gabapentin 800 mg 4 times a day. To his credit, he finally quit smoking when he was hospitalized in December with COPD. He is now 4 months of nonsmoker. He has also been aggressive going to [facility] therapy about 3-4 times a week. The patient notes pain is 5 on a visual analog scale. He is very concerned about his scoliosis. He has a followup appointment on June 04. I assured him that this is a chronic issue, longstanding. I noted on my intake physical exam from 07/14/2013 that he had significant thoracolumbar scoliosis. I am not sure how long this has been present, but clearly it is fairly a significant issue. It may be actually progressing somewhat. The patient has been given it sounds like a back brace to wear. Currently, he is simply wearing a Velcro abdominal binder. He notes pain interferes with function, but again he has been aggressive with physical therapy. Since he quit smoking, he has been a little more physically active. PHYSICAL EXAMINATION: Shows 66-year-old gentleman, BMI is 26 kilograms per meter squared. Vital signs are stable as noted on the EMR. Again, has significant thoracolumbar scoliosis, he is wearing a neoprene knee sleeves with [facility] [address] [place] [address] PAIN MANAGEMENT CONSULTATION Name: HANSEL RAMIREZ Room #: REG ALEKSEY Clemente#: [id number] Admission: 05/20/17 Attend Phys: Mao Santizo DO Discharge: Date of : 48 Report #: [id number] appropriate patella cutouts. Gait is moderately antalgic. Diffuse tenderness across the low back. No discrete trigger points are noted. We reviewed the fact that opiate medications are being used to provide analgesia adequate to support activities of daily living, not attempting to achieve a specific pain score on the 0-10 Visual Analog Scale. The current opiate medications are providing sufficient analgesia to allow the patient to participate in activities of daily living. The patient is not exhibiting any aberrant behavior suggestive of drug diversion. The patient is not having any adverse reactions to medications. The patient is not suffering from daytime somnolence or mental acuity changes. The patient is managing opiate-induced constipation with appropriate xboi-gsr-vuryluq agents and dietary considerations. The patient was counseled on concern for caution with operating a motor vehicle while using opiate medications. A physical exam was performed and the patient's functional status was evaluated. All patients with back pain were advised against the bed rest greater than 4 days and were advised to return to normal activities. Pain score assessment was noted and the treatment plan was reviewed with the patient. All current medications, both prescribed and OTC were reviewed and reconciled on the electronic medical record. Tobacco screening was accomplished and smoking cessation was advised when indicated. BMI was noted and diet/exercise modification was recommended for all patients following outside normal parameters. I reviewed with the patient today their responsibilities to safeguard prescription medications, reviewed their responsibility to utilize medications only as prescribed by the physician. They are to seek and receive pain medications only from 1 physician group ( [facility]). They are to use 1 pharmacy and keep the clinic informed if they change pharmacies. Their responsibilities include making followup visits in a timely fashion and to avoid abrupt discontinuation of medication usage. Their responsibilities further include bringing their medications (bottles from the pharmacy with residual pills) to the visit for possible confirmation of pill counts and the patient understands it is their responsibility to submit to random drug screens to ensure both that the medications prescribed are present, and that no other controlled substances are present. All prescriptions provided today were generated electronically. I spent approximately 30 minutes with the patient and Ms. Ramirez today reviewing his specific anatomy and discussing therapeutic issues. We did stress the need to continuing to wear his back brace may somewhat limited scoliosis progression. Again, he is focussed on following up on the June 04 appointment. With his osteoporosis, I do not think he would be a good surgical candidate for extensive surgical correction including placement of Benavides rods. We will of course defer to the surgeon. [facility] [address] [place] [address] PAIN MANAGEMENT CONSULTATION Name: HANSEL RAMIREZ RUBI Room #: REG [facility].#: [id number] Admission: 05/20/17 Attend Phys: Mao Santizo DO Discharge: Date of : 48 Report #: [id number] I have renewed his current medications including Percocet 7.5/325 four a day and MS Contin 15 mg q. 8 hours. I have taken the liberty of writing for 2 months of current medication. Follow up at that time, earlier if needed. <ELECTRONICALLY SIGNED> By: Mao Santizo DO 05/21/1726 0652 5 Mao Santizo DO /nt
[2017-05-20 12:45] VITALS: BP 154/85
== END | disposition home or self-care (01) ==
LOC: PAIN 07:08
DX: M41.85 Other forms of scoliosis, thoracolumbar region (principal); M47.895 Other spondylosis, thoracolumbar region; M17.0 Bilateral primary osteoarthritis of knee; M19.012 Primary osteoarthritis, left shoulder; M19.011 Primary osteoarthritis, right shoulder; J44.9 Chronic obstructive pulmonary disease, unspecified; Z79.899 Other long term (current) drug therapy; Z87.891 Personal history of nicotine dependence

== ENCOUNTER → 2017-07-19 | Outpatient (CLI) | payer OTHER ==
[~2017-07-19] VITALS: Ht 165.1 cm; Wt 73.5 kg
--- NOTE | ~2017-07-19 | HPC ---
[facility] [address] [place] [address] PAIN MANAGEMENT CONSULTATION Name: RAMIREZHANSEL RUBI Room #: REG Yoav Clemente#: [id number] Admission: 07/19/17 Attend Phys: Mao Santizo DO Discharge: Date of : 46 Report #: [id number] THIS REPORT FOR: //name// CC: Arnulfo Santizo HISTORY OF PRESENT ILLNESS: The patient is a 67-year-old gentleman being treated for chronic thoracolumbar scoliosis, spondylosis, DJD affecting knees and shoulders, requiring high-risk complex medication management for chronic pain syndrome. He was last seen in pain clinic on 05/20/2017. He had had a consultation with Dr. Darius Orta regarding spine surgery. He saw Dr. Bowens for a second opinion. Both surgeons suggested that if he had surgery, would be fairly extensive fusion. Neither surgeon was too enthusiastic on moving forward with surgery. The patient reported he did quit smoking in January though he does have ongoing COPD. He had been aggressive with physical activity including swimming and water aerobics and a fairly daily basis. This appeared to be about the only time he was relatively comfortable. 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 The right upper back incision got infected. He still has sutures in place. He has been unable to get in the water since then. We reviewed the fact that opiate medications are being used to provide analgesia adequate to support activities of daily living, not attempting to achieve a specific pain score on the 0-10 Visual Analog Scale. The current opiate medications are providing sufficient analgesia to allow the patient to participate in activities of daily living. The patient is not exhibiting any aberrant behavior suggestive of drug diversion. The patient is not having any adverse reactions to medications. The patient is not suffering from daytime somnolence or mental acuity changes. The patient is managing opiate-induced constipation with appropriate tteh-vct-fjzaaao agents and dietary considerations. The patient was counseled on concern for caution with operating a motor vehicle while using opiate medications. A physical exam was performed and the patient's functional status was evaluated. All patients with back pain were advised against the bed rest greater than 4 days and were advised to return to normal activities. Pain score assessment was noted and the treatment plan was reviewed with the patient. All current medications, both prescribed and OTC were reviewed and reconciled on the electronic medical record. Tobacco screening was accomplished and smoking cessation was advised when indicated. BMI was noted and diet/exercise modification was recommended for all [place] [address] PAIN MANAGEMENT CONSULTATION Name: RAMIREZHANSEL RUBI Room #: REG ALEKSEY Clemente#: [id number] Admission: 07/19/17 Attend Phys: Mao Santizo DO Discharge: Date of : 46 Report #: [id number] I reviewed with the patient today their responsibilities to safeguard prescription medications, reviewed their responsibility to utilize medications only as prescribed by the physician. They are to seek and receive pain medications only from 1 physician group ( [facility]). They are to use 1 pharmacy and keep the clinic informed if they change pharmacies. Their responsibilities include making followup visits in a timely fashion and to avoid abrupt discontinuation of medication usage. Their responsibilities further include bringing their medications (bottles from the pharmacy with residual pills) to the visit for possible confirmation of pill counts and the patient understands it is their responsibility to submit to random drug screens to ensure both that the medications prescribed are present, and that no other controlled substances are present. All prescriptions provided today were generated electronically. Last buccal swab accomplished on 05/20/2015 was positive for prescribed medications and no others. ASSESSMENT: Chronic pain syndrome requiring high-risk complex medication management, thoracolumbar scoliosis, spondylosis, axial back pain and multiple level degenerative joint disease. RECOMMENDATIONS: After a long discussion with the patient today about therapeutic option we have ultimately elected to simply continue baseline medication including MS Contin 15 mg q. 8 hours, Percocet 7.5/325 up to 4 a day, gabapentin 800 mg t.i.d., Motrin 800 mg t.i.d., Trileptal 300 mg t.i.d., tizanidine 4 mg up to 3 times a day for breakthrough pain and spasm. Follow up in 2 months for reevaluation. <ELECTRONICALLY SIGNED> By: Mao Santizo DO 07/21/17 0808 1701 2324 Mao Santizo DO /nt
[2017-07-19 14:30] VITALS: BP 176/81
== END ==
LOC: PAIN 07:16
DX: M41.85 Other forms of scoliosis, thoracolumbar region (principal); M47.895 Other spondylosis, thoracolumbar region; G89.4 Chronic pain syndrome; M54.9 Dorsalgia, unspecified; Z79.899 Other long term (current) drug therapy

== ENCOUNTER → 2017-09-16 | Outpatient (CLI) | payer OTHER ==
[~2017-09-16] VITALS: Ht 165.1 cm; Wt 69.4 kg
[~2017-09-16] MED LIST changes: +FLOMAX0.4 MG PO; +KADIAN30 MG PO; +KADIAN40 MG PO; +ZANAFLEX2 MG PO
--- NOTE | ~2017-09-16 | HPC ---
[facility] [place] [address] [address] [place] [address] PAIN MANAGEMENT CONSULTATION Name: RAMIREZHANSEL Room #: REG [facility] Chyna#: [id number] Admission: 09/16/17 Attend Phys: Mao Santizo DO Discharge: Date of : 46 Report #: [id number] THIS REPORT FOR: //name// CC: Arnulfo Santizo The patient is a 67-year-old gentleman typically treated for thoracolumbar scoliosis and spondylosis, osteoarthritis affecting knees and shoulders, chronic pain syndrome requiring complex medication management. Comorbidities include osteoporosis and COPD. The patient returns to the pain clinic today, last visit was 07/19/2017. To the patient's credit, he has continued to be a nonsmoker. Rates his pain score as 37/70. Rates pain intensity score of a 5 on a VAS. History of osteoarthritis affecting upper extremities and knees. Blood pressure is 154/82, pulse 93, respirations 14 and BMI is 25.5 kilograms per meter squared. He uses a cane for balance to assist with ambulation. He has not fallen in the last 3 months. Opiate risk assessment tool score is in the low category. We reviewed his opiate consent to treat contract today. Last random drug screen on 05/21/2017 was positive for prescribed medications and no others We reviewed the fact that opiate medications are being used to provide analgesia adequate to support activities of daily living, not attempting to achieve a specific pain score on the 0-10 Visual Analog Scale. The current opiate medications are providing sufficient analgesia to allow the patient to participate in activities of daily living. The patient is not exhibiting any aberrant behavior suggestive of drug diversion. The patient is not having any adverse reactions to medications. The patient is not suffering from daytime somnolence or mental acuity changes. The patient is managing opiate-induced constipation with appropriate svoq-isi-qdensuh agents and dietary considerations. The patient was counseled on concern for caution with operating a motor vehicle while using opiate medications. A physical exam was performed and the patient's functional status was evaluated. All patients with back pain were advised against the bed rest greater than 4 days and were advised to return to normal activities. Pain score assessment was noted and the treatment plan was reviewed with the patient. All current medications, both prescribed and OTC were reviewed and reconciled on the electronic medical record. Tobacco screening was accomplished and smoking cessation was advised when indicated. BMI was noted and diet/exercise modification was recommended for all patients following outside normal parameters. I reviewed with the patient today their responsibilities to safeguard prescription medications, reviewed their responsibility to utilize medications only as prescribed by the physician. They are to seek and receive pain medications only from 1 physician group ( [facility]). [place] [address] PAIN MANAGEMENT CONSULTATION Name: HANSEL RAMIREZ Room #: REG ALEKSEY Clemente#: [id number] Admission: 09/16/17 Attend Phys: Mao Santizo DO Discharge: Date of : 46 Report #: [id number] 1 pharmacy and keep the clinic informed if they change pharmacies. Their responsibilities include making followup visits in a timely fashion and to avoid abrupt discontinuation of medication usage. Their responsibilities further include bringing their medications (bottles from the pharmacy with residual pills) to the visit for possible confirmation of pill counts and the patient understands it is their responsibility to submit to random drug screens to ensure both that the medications prescribed are present, and that no other controlled substances are present. All prescriptions provided today were generated electronically. The patient notes pain continues in the low back. He has resumed water aerobics (had been postponing water aerobics due to some prior skin superficial carcinomas being removed and sutures in place). He notes that if he walks 5 minutes or more, he gets significantly short of breath and uses a cane in his left hand. He does have ongoing paresthesia in the left hand and is scheduled for carpal tunnel release. We talked briefly about surgical options. I suggest that he try and use more local rather than general anesthesia given concerns for significant COPD. Ongoing pain in the bilateral knees. He does use knee braces. Objectively, anterior and posterior cruciate as well as medial and lateral collateral ligaments all appear to be intact. Subjective axial back pain remains most problematic. Long discussion with the patient today about therapeutic option. We would like to continue MS Contin 15 mg q. 8 hours, Percocet 7.5/325 up to 4 a day, gabapentin 800 mg t.i.d., Motrin 800 mg t.i.d., Trileptal 300 mg t.i.d. and tizanidine 4 mg up to t.i.d. for spasm. Discharged in good and stable condition after prolonged visit, spent reviewing therapeutic options, discussing proposed surgery, encouraging resumption of water aerobics and congratulating the patient on smoking cessation, encouraging continuation of the same and continuation of activities as able. I have taken the liberty of writing for 2 months of current medication. Follow up at that time, earlier if needed. <ELECTRONICALLY SIGNED> By: Mao Santizo DO 09/17/17 0845 1657 2136 Mao Santizo DO /nt
[2017-09-16 13:40] VITALS: BP 154/82
== END ==
LOC: PAIN 07:15
DX: M47.895 Other spondylosis, thoracolumbar region (principal); M41.85 Other forms of scoliosis, thoracolumbar region; G89.29 Other chronic pain; M17.0 Bilateral primary osteoarthritis of knee; M19.012 Primary osteoarthritis, left shoulder; M19.011 Primary osteoarthritis, right shoulder; Z79.899 Other long term (current) drug therapy

== ENCOUNTER 2017-10-13 14:55 | Emergency (ER) | payer OTHER ==
[~2017-10-13] VITALS: Ht 162.6 cm; Wt 67.1 kg
--- NOTE | ~2017-10-13 | EKG ---
[address] [place] [address] ELECTROCARDIOGRAM REPORT Name: HANSEL RAMIREZ RUBI [id number] Admission: 10/13/17 Attend Phys: Discharge: 10/13/17 Date of : 46 Report #: [id number] THIS REPORT FOR: //name// [facility] ED Test Date: 2017-10-13 Test Time: 15:15:22 Pat Name: HANSEL RAMIREZ Department: Room: Gender: M Complaint Investigator: HAMZAH : 1950 Requested By: Nadir Cardona Order Number: [id number] MD: Terrell Ram Measurements Intervals [place] Rate: 69 P: 32 MA: 195 QRS: 10 QRSD: 150 T: 187 QT: 443 QTc: 475 Interpretive Statements Sinus rhythm Left bundle branch block Compared to ECG 01/13/2017 00:54:29 Sinus tachycardia no longer present Electronically Signed On 10-17-2017 13:05:10 CDT by Terrell Ram [email or web address] <ELECTRONICALLY SIGNED> By: Terrell Ram MD, [facility] 10/17/17 1305 1515 14 Terrell Ram MD, FACC /EPI
[~2017-10-13 14:55] MED LIST changes: -FLOMAX0.4 MG PO; -KADIAN30 MG PO; -KADIAN40 MG PO; -ZANAFLEX2 MG PO
[2017-10-13] MEDS ORDERED: FLOMAX0.4 MG PO (15:22)
[2017-10-13 15:58] LABS: BASOPHILS 1.1 % (0.0-2.0); EOSINOPHILS 1.5 % (0.0-3.0); HEMATOCRIT 35.8 % (42.0-52.0); HEMOGLOBIN 12.1 gm/dL (14.0-18.0); LYMPHOCYTES 19.7 % (24.0-44.0); MCH 28.8 pg (26.0-34.0); MCHC 33.8 g/dL (28.0-37.0); MCV 85.3 fL (80.0-100.0); MONOCYTES 5.4 % (1.0-8.0); PLATELET COUNT 323 thou/uL (150-400); POLYS 72.3 % (36.0-66.0); RDW 13.7 % (10.5-14.5); WBC 6.9 thou/uL (4.0-11.0)
[2017-10-13 16:05] LABS: ANION GAP 6 mmol/L (7-16); BUN 15 mg/dL (7-18); CALCIUM 9.7 mg/dL (8.5-10.1); CHLORIDE 96 mmol/L (98-107); CO2 28 mmol/L (21-32); CREATININE 0.7 mg/dL (0.7-1.3); GLUCOSE 117 mg/dL (74-106); POTASSIUM 4.7 mmol/L (3.5-5.1); SODIUM 130 mmol/L (136-145)
[2017-10-13 16:14] LABS: TROPONIN-I < 0.04 ng/mL (<0.06)
[2017-10-13] MEDS ORDERED: DOXYCYCLINE 10100 MG PO (17:20)
[2017-10-13] MEDS ORDERED: PREDNISONE 20 M20 MG PO (17:20)
[2017-10-13 17:31] VITALS: BP 115/73
[2017-11-11] MEDS ORDERED: MS CONTIN15 MG PO (12:57)
[2017-11-11] MEDS ORDERED: PERCOCET 7.5-31 EACH PO (12:57)
[2017-11-11] MEDS ORDERED: OXYCODONE-APAP1 EAC6 PO (12:57)
[2018-01-10] MEDS ORDERED: PERCOCET 7.5-31 EACH PO (11:25)
[2018-01-10] MEDS ORDERED: OXYCODONE-APAP1 EAC6 PO (11:25)
[2018-01-10] MEDS ORDERED: KADIAN40 MG PO (11:25)
[2018-01-10] MEDS ORDERED: KADIAN30 MG PO (11:25)
[2018-01-10] MEDS ORDERED: GABAPENTIN800 M1 PO (11:31)
[2018-01-10] MEDS ORDERED: IBUPROFEN 800800 M1 PO (11:31)
[2018-01-10] MEDS ORDERED: ZANAFLEX4 MG PO (11:31)
[2018-01-10] MEDS ORDERED: TRILEPTAL 300300 MG PO (11:31)
[2018-01-10] MEDS ORDERED: MS CONTIN15 MG PO (14:49)
[2018-03-08] MEDS ORDERED: FLOMAX0.4 MG PO (10:58)
[2018-03-08] MEDS ORDERED: PERCOCET 7.5-31 EACH PO (11:45)
[2018-03-08] MEDS ORDERED: TRILEPTAL 300300 MG PO (11:45)
[2018-03-08] MEDS ORDERED: GABAPENTIN800 M1 PO (11:45)
[2018-03-08] MEDS ORDERED: IBUPROFEN 800800 M1 PO (11:45)
[2018-03-08] MEDS ORDERED: MS CONTIN15 MG PO (11:45)
[2018-03-08] MEDS ORDERED: ZANAFLEX4 MG PO (11:45)
[2018-03-08] MEDS ORDERED: OXYCODONE-APAP1 EAC6 PO (11:45)
[2018-05-03] MEDS ORDERED: ZANAFLEX2 MG PO ×2 (13:17→13:37)
[2018-05-03] MEDS ORDERED: PERCOCET 7.5-31 EACH PO (13:37)
[2018-05-03] MEDS ORDERED: MS CONTIN15 MG PO (13:37)
[2018-05-03] MEDS ORDERED: OXYCODONE-APAP1 EAC6 PO (13:37)
== END 2017-10-13 17:32 | disposition home or self-care (01) ==
LOC: ER 14:55
PROVIDERS: Physician Assistant
DX: J44.1 Chronic obstructive pulmonary disease with (acute) exacerbation (principal); F10.99 Alcohol use, unspecified with unspecified alcohol-induced disorder; Z90.49 Acquired absence of other specified parts of digestive tract; Z87.891 Personal history of nicotine dependence

== ENCOUNTER → 2017-11-11 | Outpatient (CLI) | payer OTHER ==
[~2017-11-11] VITALS: Ht 162.6 cm; Wt 66.6 kg
[~2017-11-11] MED LIST changes: +FLOMAX0.4 MG PO
--- NOTE | ~2017-11-11 | HPC ---
[facility] [address] [address] PAIN MANAGEMENT CONSULTATION Name: RAMIREZHANSEL RUBI Room #: REG [facility] Chyna#: [id number] Admission: 11/11/17 Attend Phys: Mao Santizo DO Discharge: Date of : 46 Report #: [id number] THIS REPORT FOR: //name// CC: Arnulfo Santizo DATE OF SERVICE: 11/11/2017 PAIN CLINIC NOTE The patient is a 67-year-old gentleman being treated for thoracolumbar scoliosis, spondylosis, osteoarthritis affecting knees and shoulders, osteoporosis, COPD requiring complex medication management. The patient is a pleasant gentleman who has finally quit smoking. Unfortunately, required hospitalization with pneumonia and new diagnosis of COPD for him to quit, but he and his have both quit. He had been fairly active, trying to swim as he was getting better. Last visit 09/16/2017, he was stable on MS Contin 15 mg q. 8 hours, Percocet 7.5/325 up to 4 a day, gabapentin 800 mg t.i.d., Trileptal 300 mg t.i.d., and tizanidine for spasm. In the interval since we last saw him, he was in the ER on 10/13/2017 with exacerbation of COPD, shortness of breath and a productive cough. He was treated and discharged. He returns to pain clinic today noting still gets short of breath easily. Feels he has reasonable control with the current medication, though he does rate his pain at "10" on a VAS. He states he is moving slowly with the shortness of breath becoming earlier with activity. He has not been swimming for about the past 4-5 weeks (after the initial bronchitis bout). He and his both have just gotten wet suits for swimming, they are looking forward to going back to the [facility] and participating in water aerobics there. Water therapy activities are some of the few excercise activities that the patient can endure giving his significant DJD/osteoarthritis affecting knees, hips and significant thoracolumbar rotoscoliosis. He tells me today that he has a carpal tunnel surgery coming up for the left hand. Actually he has an appointment tomorrow with Anesthesiology. He does have significant cardiopulmonary risk factors. He may be able to tolerate light sedation and local anesthetic for endoscopic carpal tunnel release. It should not really cause significant postoperative pain. We reviewed the fact that opiate medications are being used to provide analgesia adequate to support activities of daily living, not attempting to achieve a specific pain score on the 0-10 Visual Analog Scale. The current opiate medications are providing sufficient analgesia to allow the patient to [address] [address] PAIN MANAGEMENT CONSULTATION Name: HANSEL RAMIREZ Room #: REG ALEKSEY Clemente#: [id number] Admission: 11/11/17 Attend Phys: Mao Santizo DO Discharge: Date of : 46 Report #: [id number] participate in activities of daily living. The patient is not exhibiting any aberrant behavior suggestive of drug diversion. The patient is not having any adverse reactions to medications. The patient is not suffering from daytime somnolence or mental acuity changes. The patient is managing opiate-induced constipation with appropriate crrj-ecv-tnctqnn agents and dietary considerations. The patient was counseled on concern for caution with operating a motor vehicle while using opiate medications. A physical exam was performed and the patient's functional status was evaluated. All patients with back pain were advised against the bed rest greater than 4 days and were advised to return to normal activities. Pain score assessment was noted and the treatment plan was reviewed with the patient. All current medications, both prescribed and OTC were reviewed and reconciled on the electronic medical record. Tobacco screening was accomplished and smoking cessation was advised when indicated. BMI was noted and diet/exercise modification was recommended for all patients following outside normal parameters. I reviewed with the patient today their responsibilities to safeguard prescription medications, reviewed their responsibility to utilize medications only as prescribed by the physician. They are to seek and receive pain medications only from 1 physician group ( [facility]). They are to use 1 pharmacy and keep the clinic informed if they change pharmacies. Their responsibilities include making followup visits in a timely fashion and to avoid abrupt discontinuation of medication usage. Their responsibilities further include bringing their medications (bottles from the pharmacy with residual pills) to the visit for possible confirmation of pill counts and the patient understands it is their responsibility to submit to random drug screens to ensure both that the medications prescribed are present, and that no other controlled substances are present. All prescriptions provided today were generated electronically. PHYSICAL EXAMINATION: Shows a 67-year-old gentleman, BMI is 25.2 kilograms per meter squared, blood pressure 154/58, pulse 53, respirations are 22, room air oxygen saturation 96%. He has significant thoracic kyphosis and thoracolumbar scoliosis axial back pain, antalgic gait using a cane. He stopped using his right knee brace due to an eschar in this area. He is wearing a left knee brace. ASSESSMENT: Osteoarthritis affecting knees and shoulders, thoracolumbar scoliosis, spondylosis, chronic obstructive pulmonary disease, osteoporosis, chronic complex medication management. RECOMMENDATIONS: After discussion with the patient today, we elected to continue baseline medication unchanged. Last random drug screen on 05/21/[address] [address] PAIN MANAGEMENT CONSULTATION Name: HANSEL RAMIREZ Room #: REG Yoav Clemente#: [id number] Admission: 11/11/17 Attend Phys: Mao Santizo DO Discharge: Date of : 46 Report #: [id number] was positive for prescribed medications. Follow up in 2 months for reevaluation, earlier if needed. <ELECTRONICALLY SIGNED> By: Mao Santizo DO 11/15/17 0822 1408 14 Mao Santizo DO /nt
[2017-11-11 12:44] VITALS: BP 154/58
== END ==
LOC: PAIN 07:21
DX: M47.895 Other spondylosis, thoracolumbar region (principal); M19.012 Primary osteoarthritis, left shoulder; M19.011 Primary osteoarthritis, right shoulder; M17.0 Bilateral primary osteoarthritis of knee; J44.9 Chronic obstructive pulmonary disease, unspecified; M81.0 Age-related osteoporosis without current pathological fracture; Z79.899 Other long term (current) drug therapy

== ENCOUNTER → 2017-11-18 | Outpatient (CLI) | payer OTHER ==
--- NOTE | ~2017-11-18 | 2DMMODE ---
[facility] [place] [address] 2 D/M-MODE ECHOCARDIOGRAM Name: RAMIREZHANSEL Room #: REG [facility]#: [id number] Admission: 11/18/17 Attend Phys: Sb Larson MD Discharge: Date of : 46 Date of Service: 11/18/17 1057 Report #: [id number] THIS REPORT FOR: //name// APPROVED REPORT Study performed: 11/18/2017 10:08:45 EXAM: Comprehensive 2D, Doppler, and color-flow Echocardiogram Patient Location: Out-Patient Status: routine BSA: 1.73 HR: 77 bpm BP: 166/88 mmHg Rhythm: LBBB/PVCs Other Information Study Quality: Good Indications LBBB. COPD 2D Dimensions RVDd: 42.13 mm LVEF(%): 52.40 (>50%) IVSd: 15.05 (7-11mm) LVOT Diam: 19.73 (18-24mm) LVDd: 44.87 mm PWd: 12.36 (7-11mm) LVDs: 32.87 (25-40mm) Aortic Root: 32.29 mm Edwards's LVEF: 52.40 % Volumes Left Atrial Volume (Systole) Single Plane 4CH: 66.53 mL Single Plane 2CH: 66.99 mL LA ESV Index: 41.00 mL/m2 Aortic Valve AoV Peak Osmel.: 2.24 m/s AO Peak Gr.: 20.15 mmHg LVOT Max P.40 mmHg AO Mean Gr.: 10.49 mmHg AO V2 Mean: 1.55 m/s LVOT Max V: 1.05 m/s AO V2 VTI: 44.50 cm OCTAVIO Vmax: 1.43 cm2 Mitral Valve [facility] [place] [address] 2 D/M-MODE ECHOCARDIOGRAM Name: HANSEL RAMIREZ VANZANT Room #: [facility]#: [id number] Admission: 11/18/17 Attend Phys: Sb Larson MD Discharge: Date of : 46 Date of Service: 11/18/17 1057 Report #: [id number] E/A Ratio: 0.8 MV Decel. Time: 267.80 ms MV E Max Osmel.: 1.28 m/s MV A Osmel.: 1.55 m/s MV PHT: 77.66 ms IVRT: 92.27 ms Pulmonary Valve PV Peak Osmel.: 1.35 m/s PV Peak Gr.: 7.30 mmHg Pulmonary Vein P Vein S: 0.69 m/s P Vein D: 0.55 m/s P Vein S/D Ratio: 1.25 Tricuspid Valve TR Peak Osmel.: 2.57 m/s RAP Estimate: 10.00 mmHg TR Peak Gr.: 26.50 mmHg PA Pressure: 37.00 mmHg Left Ventricle The left ventricle is normal size. Paradoxical septal motion consistent with conduction abnormality. Mild concentric left ventricular hypertrophy. Left ventricular systolic function is normal. LVEF is 50-55%. Mild diastolic dysfunction is present (impaired relaxation pattern). Right Ventricle The right ventricle is normal size. The right ventricular systolic function is normal. Atria Left atrium is moderately dilated. The right atrium size is normal. Aortic Valve Aortic valve is thickened and calcified. Trace aortic regurgitation. Borderline mild aortic stenosis. Peak pressure gradient of 20mmHg and a mean of 11mmHg. Mitral Valve Mitral valve leaflets are thickened. Moderate mitral annular calcification. Mild mitral regurgitation. Tricuspid Valve The tricuspid valve is normal in structure. Mild tricuspid [facility] [address] [place] [address] 2 D/M-MODE ECHOCARDIOGRAM Name: RAMIREZHANSEL VANZANT Room #: REG [facility]#: [id number] Admission: 11/18/17 Attend Phys: Sb Larson MD Discharge: Date of : 46 Date of Service: 11/18/17 1057 Report #: [id number] regurgitation. Estimated PAP is 35-40mmHg. Pulmonic Valve The pulmonary valve is normal in structure. There is no pulmonic valvular regurgitation. Great Vessels The aortic root is normal in size. IVC is normal in size and collapses <50% with inspiration. Pericardium Small pericaridal effusion noted anteriorly. <Conclusion> The left ventricle is normal size. Mild concentric left ventricular hypertrophy. Left ventricular systolic function is normal. Paradoxical septal motion consistent with conduction abnormality. Mild diastolic dysfunction is present (impaired relaxation pattern). The right ventricle is normal size. Left atrium is moderately dilated. Aortic valve is thickened and calcified. Borderline mild aortic stenosis. Peak pressure gradient of 20mmHg and a mean of 11mmHg. Moderate mitral annular calcification. Mild mitral regurgitation. Mild tricuspid regurgitation. Estimated PAP is 35-40mmHg. <ELECTRONICALLY SIGNED> By: Sb Larson MD 11/18/17 1057 1057 1057 Sb Larson MD /INF
== END ==
LOC: NUC 08:09
DX: I44.7 Left bundle-branch block, unspecified (principal); J44.9 Chronic obstructive pulmonary disease, unspecified; Z87.891 Personal history of nicotine dependence

== ENCOUNTER → 2018-01-10 | Outpatient (CLI) | payer OTHER ==
[~2018-01-10] VITALS: Ht 165.1 cm; Wt 66.7 kg
[~2018-01-10] MED LIST changes: +KADIAN30 MG PO; +KADIAN40 MG PO
--- NOTE | ~2018-01-10 | HPC ---
[place] [address] PAIN MANAGEMENT CONSULTATION Name: RAMIREZHANSEL Room #: REG [facility] Lilia.#: [id number] Admission: 01/10/18 Attend Phys: Mao Santizo DO Discharge: Date of : 46 Report #: [id number] THIS REPORT FOR: //name// CC: Arnulfo Santizo DATE OF SERVICE: 01/10/2018 The patient is a 67-year-old gentleman long known to the pain clinic, he was seen in consultation 07/2013. Had ongoing radiculopathy, spinal stenosis, DJD affecting knees. Had a component of neurogenic claudication. He was taking higher dose hydrocodone, prescribed hydrocodone 7.5/325 three a day, but was taking these little more frequently. He was continued on gabapentin 800 mg t.i.d. We trialed rotating from hydrocodone to oxycodone with no efficacy, increased to hydrocodone 10 up to 4 a day, this was in early 2013. Over the years, the patient has become more and more disabled. Has significant COPD. I had encouraged him over the years to quit smoking; he did quit, however, after significant bout of pulmonary compromise including prolonged hospitalization for pneumonia last fall. He has tried to continue to be active, he was swimming as exercise for a while. Last seen in the pain clinic 11/11/2017. Over the years was escalated his opiate to MS Contin 15 mg q.8h., Percocet 7.5/325 four a day equating to 90 milligram morphine equivalents. Last visit, we discussed concerns for his relatively high dose opiate, with this relatively small gentleman, 5 feet 5 inches, 147 pounds and a known osteoporosis, if he were to have an acute injury, i.e., fall and break a hip, I am concerned, we would never achieve any sort of satisfactory analgesia. I talked about the need to try and wean opiate. Today, he is again seen in the company of his who is supportive. He notes his pain is 5 on a VAS. When asked if he felt he was sedate during the day, he denied problems with daytime somnolence, though his notes he is quite sedentary and indeed is developing more lower extremity edema. She states he is quite drowsy throughout the day. PHYSICAL EXAMINATION: Notes a frail appearing gentleman with significant thoracolumbar scoliosis and developing increasing kyphosis, supplemental oxygen. Does have significant lower extremity edema, left greater than right. The first time in a long time, I have seen him not wearing an cyaq-qgj-vfjwptz knee braces. Apparently, the right knee brace was causing an abrasion on his superior medial patella. They have put some topical antibiotic ointments on this. Today, I did feel in the groin, there was no inguinal adenopathy. They were concerned that this was becoming infected, but it does not appear to be so. [address] [address] PAIN MANAGEMENT CONSULTATION Name: HANSEL RAMIREZ Room #: REG ALEKSEY Clemente#: [id number] Admission: 01/10/18 Attend Phys: Mao Santizo DO Discharge: Date of : 46 Report #: [id number] We reviewed the fact that opiate medications are being used to provide analgesia adequate to support activities of daily living, not attempting to achieve a specific pain score on the 0-10 Visual Analog Scale. The current opiate medications are providing sufficient analgesia to allow the patient to participate in activities of daily living. The patient is not exhibiting any aberrant behavior suggestive of drug diversion. The patient is not having any adverse reactions to medications. The patient is not suffering from daytime somnolence or mental acuity changes. The patient is managing opiate-induced constipation with appropriate keuu-rrg-lynfkec agents and dietary considerations. The patient was counseled on concern for caution with operating a motor vehicle while using opiate medications. A physical exam was performed and the patient's functional status was evaluated. All patients with back pain were advised against the bed rest greater than 4 days and were advised to return to normal activities. Pain score assessment was noted and the treatment plan was reviewed with the patient. All current medications, both prescribed and OTC were reviewed and reconciled on the electronic medical record. Tobacco screening was accomplished and smoking cessation was advised when indicated. BMI was noted and diet/exercise modification was recommended for all patients following outside normal parameters. I reviewed with the patient today their responsibilities to safeguard prescription medications, reviewed their responsibility to utilize medications only as prescribed by the physician. They are to seek and receive pain medications only from 1 physician group ( [facility]). They are to use 1 pharmacy and keep the clinic informed if they change pharmacies. Their responsibilities include making followup visits in a timely fashion and to avoid abrupt discontinuation of medication usage. Their responsibilities further include bringing their medications (bottles from the pharmacy with residual pills) to the visit for possible confirmation of pill counts and the patient understands it is their responsibility to submit to random drug screens to ensure both that the medications prescribed are present, and that no other controlled substances are present. All prescriptions provided today were generated electronically. ASSESSMENT: Symptomatic thoracolumbar scoliosis and spondylosis without myelopathy, osteoarthritis affecting knees and shoulders, history of osteoporosis, chronic obstructive pulmonary disease requiring complex medication management. RECOMMENDATIONS: After a long discussion with the patient and his today, we have elected to rotate his narcotic, trying to wean somewhat, we will change from MS Contin 15 mg q.8h. to single dose Mora 30 mg 1 in the morning, continue Percocet 7.5/325 four a day. I have taken the liberty of writing for [address] [address] PAIN MANAGEMENT CONSULTATION Name: HANSEL RAMIREZ Room #: REG ALEKSEY Rodrigues.#: [id number] Admission: 01/10/18 Attend Phys: Mao Santizo DO Discharge: Date of : 46 Report #: [id number] months of current medication. I will be happy to see him back in 1 month. If this is not efficacious, we may go back to MS Contin 15 mg q.8h. and decrease Percocet to 5/325 four a day. I did renew his gabapentin 800 mg t.i.d., Trileptal 300 mg t.i.d., tizanidine p.r.n. usage and ibuprofen 800 mg t.i.d. I did point out to the patient that gabapentin can be associated with lower extremity peripheral edema (though unilateral peripheral edema does seem a little less likely). Again, the patient has been on this for a number of years and feels that it is quite efficacious in helping to manage some of the components of his pain. 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 The patient was seen for prolonged visit today reviewing all the aforementioned health risks and concerns, was seen from 11:19-11:50. Greater than 50% of the 25+ minute visit was spent counseling the patient, discussing therapeutic options, etc. Discharged in stable condition. ADDENDUM: Got phone call from patient that insurance would not cover Mora. Have elected to revert back to MS Contin 15mg, however decrease dose from tid to bid, specifically, one tab 05:00 (patient states that this is the time he typically arises) and second tabe @ 15:00. Rx for 60 tabs generated. <ELECTRONICALLY SIGNED> By: Mao Santizo DO 01/12/18 0800 [id number] [id number] Mao Santizo DO /nt
[2018-01-10 11:11] VITALS: BP 157/86
== END ==
LOC: PAIN 07:17
DX: M41.85 Other forms of scoliosis, thoracolumbar region (principal); M47.895 Other spondylosis, thoracolumbar region; J44.9 Chronic obstructive pulmonary disease, unspecified; M17.0 Bilateral primary osteoarthritis of knee; M19.012 Primary osteoarthritis, left shoulder; F11.90 Opioid use, unspecified, uncomplicated; M19.011 Primary osteoarthritis, right shoulder; Z79.899 Other long term (current) drug therapy; Z87.891 Personal history of nicotine dependence

== ENCOUNTER → 2018-03-08 | Outpatient (CLI) | payer OTHER ==
[~2018-03-08] VITALS: Ht 165.1 cm; Wt 66.7 kg
--- NOTE | ~2018-03-08 | HPC ---
[facility] [place] [address] [place] [address] PAIN MANAGEMENT CONSULTATION Name: JAMESHANSEL RUBI Room #: REG [facility]..#: [id number] Admission: 03/08/18 Attend Phys: Arnulfo Santizo DO Discharge: Date of : 46 Report #: [id number] THIS REPORT FOR: //name// CC: Arnulfo Chan DATE OF SERVICE: 03/08/2018 REFERRING PHYSICIAN: Arnulfo Gomez DO CHIEF COMPLAINT: Low back pain, bilateral lower extremity pain. HISTORY OF PRESENT ILLNESS: As you know, the patient is a 67-year-old male who has been followed by my partner, Dr. Mao Santizo for chronic pain issues requiring opioid medication. They have been weaning the patient down to an appropriate dose of medication, he is now taking morphine extended release 15 mg twice a day along with Percocet 7.5/325 no more than 4 a day. Despite this level of medication, the patient is reporting pain at 10/10. He states that with medications, it can drop to 5/10. He returns today in followup visit for refill of medications. The patient, as you are aware, is not a candidate for surgery given his extensive disease process, his kyphoscoliosis and the fact he suffers from severe COPD. He returns for medication management understanding that long-term opioid therapy will not be possible given the new political environment. He returns today requesting refill on medications at current dosing. ALLERGIES: No known drug allergies. CURRENT MEDICATIONS: Tamsulosin 0.4 mg once a day, MS Contin 15 mg twice a day, tizanidine 4 mg up to 3 times a day p.r.n., Trileptal 300 mg 3 times a day, ibuprofen 800 mg 3 times a day, gabapentin 800 mg 3 times a day, Percocet 7.5/325 four times a day, duloxetine 30 mg once a day, prednisone 10 mg once a day, Symbicort 160/4.5 mcg inhaled twice a day, omega-3 fish oil 1 tab per day, lactobacillus 1 tab per day, vitamin B complex 1 tab per day, multivitamin 1 tab per day, and albuterol 2 puffs q.4 hours p.r.n. SOCIAL HISTORY: The patient smokes daily. He denies IV or illicit drug use. He admits to alcohol on a near daily basis. He is retired. He is accompanied by his who is providing some of the information in response to questions today. PQRS: The patient has known arthritic changes of the bilateral upper extremities, thoracic and lumbar spine. There are mild arthritic changes of the bilateral knees. He is not suffering from rheumatoid arthritis. He is a fall risk, but has not had a fall in the last 3 months. He is not on blood thinners. [address] [address] PAIN MANAGEMENT CONSULTATION Name: HANSEL RAMIREZ [facility] [id number] Admission: 03/08/18 Attend Phys: Arnulfo Santizo DO Discharge: Date of : 46 Report #: [id number] He is not treated for hypertension. He has been on opioids for an extended period of time, he has a low risk of opioid abuse. Functional assessment tool 37/70, moderate interference of daily activities secondary to pain. PHYSICAL EXAMINATION: VITAL SIGNS: Blood pressure 160/84, pulse 89, respiratory rate 18 and unlabored, the patient is 94% on room air, height 5 feet 5 inches tall, weight 147 pounds, and BMI calculated 24.5. GENERAL: Well-developed, well-nourished kyphotic and scoliotic 67-year-old male, appears his stated age, pain is rated at around 10/10 without medications, 5/10 with medications HEENT: Normocephalic, atraumatic. Pupils are equal, round, and reactive to light. EXTREMITIES: Show no clubbing, no cyanosis, and no edema. MUSCULOSKELETAL: The patient has significant palpatory tenderness over the thoracolumbar spine. There is noted severe kyphosis and scoliotic curvature. No spinous process tenderness. Seated straight leg raising negative. Supine straight leg negative. Dileep's test negative. Modified Gaenslen's positive for axial low back pain. ASSESSMENT: 1. Lumbar radiculopathy. 2. Spinal stenosis of the lumbar spine, progressively worsening. 3. Kyphoscoliosis. 4. Osteoarthritis of the bilateral knees. 5. Degeneration of the lumbar spine. 6. Chronic opioid dependency. 7. Chronic intractable pain. PLAN: 1. The patient returns today in followup visit requesting refill on medications. We have reviewed with the patient recent K-TRACS of the [place] pharmacies, it does show he is receiving medications only from Dr. Mao Santizo prior to this visit. He recently filled morphine sulfate 15 mg twice a day and Percocet 7.5/325 no more than 4 times a day. He does appear to be appropriate, there is no aberrant activity noted in the [employer] system. He requests refill on medications at this time. 2. We reviewed the fact that opiate medications are being used to provide analgesia adequate to support activities of daily living, not attempting to achieve a specific pain score on the 0-10 Visual Analog Scale. The current opiate medications are providing sufficient analgesia to allow the patient to participate in activities of daily living. The patient is not exhibiting any aberrant behavior suggestive of drug diversion. The patient is not having any adverse reactions to medications. The patient is not suffering from daytime somnolence or mental acuity changes. The patient is managing opiate-induced constipation with appropriate atrp-quh-txyychv agents and dietary [facility] [address] [place] [address] PAIN MANAGEMENT CONSULTATION Name: HANSEL RAMIREZ Room #: REG ALEKSEY Clemente#: [id number] Admission: 03/08/18 Attend Phys: Arnulfo Santizo DO Discharge: Date of : 46 Report #: [id number] considerations. The patient was counseled on concern for caution with operating a motor vehicle while using opiate medications. A physical exam was performed and the patient's functional status was evaluated. All patients with back pain were advised against the bed rest greater than 4 days and were advised to return to normal activities. Pain score assessment was noted and the treatment plan was reviewed with the patient. All current medications, both prescribed and OTC were reviewed and reconciled on the electronic medical record. Tobacco screening was accomplished and smoking cessation was advised when indicated. BMI was noted and diet/exercise modification was recommended for all patients following outside normal parameters. I reviewed with the patient today their responsibilities to safeguard prescription medications, reviewed their responsibility to utilize medications only as prescribed by the physician. They are to seek and receive pain medications only from 1 physician group ( [facility]). They are to use 1 pharmacy and keep the clinic informed if they change pharmacies. Their responsibilities include making followup visits in a timely fashion and to avoid abrupt discontinuation of medication usage. Their responsibilities further include bringing their medications (bottles from the pharmacy with residual pills) to the visit for possible confirmation of pill counts and the patient understands it is their responsibility to submit to random drug screens to ensure both that the medications prescribed are present, and that no other controlled substances are present. All prescriptions provided today were generated electronically. 3. The patient was provided a prescription of MS Contin 15 mg dose 1 tab p.o. b.i.d., I have given the patient #60, release dates of today and 4 weeks from today, 2 months' worth of medication. 4. The patient was provided a prescription of Percocet 7.5/325 one tab every 6 hours p.r.n. for pain, #120, release dates of today, 4 weeks from today, 2 months' worth of medication. 5. We will see the patient back in followup visit in 2 months for ongoing medication therapy. He does appear to be appropriate with the use of medication, he is showing no aberrancy on K-TRACS system. We will see him back in 2 months for ongoing medication management. By: 0800 1749 Arnulfo Santizo DO /nt
[2018-03-08 11:09] VITALS: BP 160/84
== END ==
LOC: PAIN 07:06
DX: M51.16 Intervertebral disc disorders with radiculopathy, lumbar region (principal); M48.061 Spinal stenosis, lumbar region without neurogenic claudication; M17.0 Bilateral primary osteoarthritis of knee; M41.86 Other forms of scoliosis, lumbar region; G89.4 Chronic pain syndrome; F11.20 Opioid dependence, uncomplicated; Z79.899 Other long term (current) drug therapy

== ENCOUNTER → 2018-04-25 | Outpatient (CLI) | payer OTHER ==
[~2018-04-25] MED LIST changes: +ZANAFLEX2 MG PO
[2018-04-25 16:17] LABS: BE(vivo) 2.6 mmol/L (-2 to +3); HCO3 27.5 mmol/L (22.0-26.0); PCO2 43.9 mmHg (35.0-45.0); PO2 70.2 mmHg (80.0-100.0); pH 7.415 (7.360-7.450); sO2 94.3 % (92.0-98.0)
[2018-04-25 16:23] LABS: HEMATOCRIT 33.6 % (42.0-52.0); HEMOGLOBIN 11.6 gm/dL (14.0-18.0); MCH 29.7 pg (26.0-34.0); MCHC 34.5 g/dL (28.0-37.0); MCV 86.2 fL (80.0-100.0); RBC 3.9 mil/uL (4.50-6.00); RDW 13.7 % (10.5-14.5); WBC 5.7 thou/uL (4.0-11.0)
[2018-04-25 16:36] LABS: ALBUMIN 3.6 g/dL (3.4-5.0); ANION GAP 5 mmol/L (7-16); BUN 11 mg/dL (7-18); CALCIUM 9.6 mg/dL (8.5-10.1); CHLORIDE 95 mmol/L (98-107); CO2 30 mmol/L (21-32); CREATININE 0.6 mg/dL (0.7-1.3); GLUCOSE 81 mg/dL (74-106); POTASSIUM 4.3 mmol/L (3.5-5.1); SGOT 21 U/L (15-37); SGPT 29 U/L (30-65); SODIUM 130 mmol/L (136-145); TOTAL BILIRUBIN 0.3 mg/dL (<0.1-1.0); TOTAL PROTEIN 6.6 g/dL (6.4-8.2)
[2018-04-27 11:12] LABS: ANTI-DNA SCREEN 1 IU/mL (0-9); ANTI-RNP <0.2 AI (0.0-0.9)
== END ==
LOC: PUL 15:12
PROVIDERS: Pediatrics
DX: J44.9 Chronic obstructive pulmonary disease, unspecified (principal); M62.81 Muscle weakness (generalized); J20.9 Acute bronchitis, unspecified; R09.02 Hypoxemia

== ENCOUNTER → 2018-05-03 | Outpatient (CLI) | payer OTHER ==
[~2018-05-03] VITALS: Ht 165.1 cm; Wt 66.5 kg
--- NOTE | ~2018-05-03 | HPC ---
[facility] [address] [place] [address] PAIN MANAGEMENT CONSULTATION Name: JAMESHANSEL RUBI Room #: REG [facility] Lilia.#: [id number] Admission: 05/03/18 Attend Phys: Arnulfo Santizo DO Discharge: Date of : 46 Report #: [id number] THIS REPORT FOR: //name// CC: Arnulfo Chan DATE OF SERVICE: 05/03/2018 REASON FOR VISIT COMPLAINT: Low back pain and bilateral lower extremity pain. HISTORY OF PRESENT ILLNESS: As you know, the patient is a 67-year-old male with longstanding history of low back pain, bilateral lower extremity pain with paresthesias. The patient has been followed by my partner, Dr. Mao Santizo for chronic pain issues for extended period of time. He is on opioid medication taking 75 morphine equivalents a day in the form of MS Contin 15 mg twice a day and oxycodone 7.5/325 four times a day for breakthrough pain. The patient indicates no side effects to the medication, no sleepiness, no disorientation, no confusion, no mental slowing. No constipation issues. He indicates today, pain level of 8/10 in the morning, reduces to about 4/10 throughout the day. He states his pain is aching and burning in sensation; exacerbated with walking and standing; improves with medications, rest, heat, massage and seated position. He has returned today in followup visit requesting refill of medications for the next 2 months. ALLERGIES: No known drug allergies. CURRENT MEDICATIONS: Tamsulosin, MS Contin, tizanidine, Trileptal, ibuprofen, gabapentin, Percocet, duloxetine, prednisone, Symbicort, omega 3 fish oil, lactobacillus, vitamin B complex, multivitamins, albuterol. SOCIAL HISTORY: The patient continues to smoke. He denies IV or illicit drug use. He admits to an occasional alcoholic beverage. He is retired. He is accompanied by his present in room today providing most of the information. PQRS: The patient has known osteoarthritis of the bilateral upper extremities, thoracic spine and low back. He does not have a diagnosis of rheumatoid arthritis. He places his pain intensity of 8/10 in the morning, reduces to 4/10 in the afternoon. He is a fall risk and reports he has had a fall, but no specific injury. He is not on blood thinners. He is not treated for hypertension. He has been on opioids for greater than 6 weeks. He is currently on contract with [facility]. He is a low risk for opioid addiction based on our assessment. Functional assessment pain impact tool 37/70, moderate. MO-TRACS/K-TRACS evaluation shows no aberrant entries. PHYSICAL EXAMINATION: [facility] [address] [place] [address] PAIN MANAGEMENT CONSULTATION Name: HANSEL RAMIREZ Room #: REG CLYoav Clemente#: [id number] Admission: 05/03/18 Attend Phys: Arnulfo Santizo DO Discharge: Date of : 46 Report #: [id number] VITAL SIGNS: Blood pressure 146/82, pulse 98, respiratory rate 16 and unlabored. The patient is 97% on room air. Height 5 feet 5 inches tall, weight 146.6 pounds, BMI calculated at 24.4. GENERAL: Well-developed, well-nourished, kyphotic-scoliotic 67-year-old male, appears stated age. He is placing current pain score anywhere between 4-8/10 depending on time of day. HEENT: Normocephalic, atraumatic. Pupils equal, round, reactive. Extraocular muscles are intact. Sclerae nonicteric, without injection. Speech is fluent. EXTREMITIES: Show no clubbing, no cyanosis. MUSCULOSKELETAL: The patient did show changes of venous stasis in the lower extremities bilaterally, no higher than the knee. MUSCULOSKELETAL: The patient has significant palpatory tenderness over the paraspinal musculature of the thoracolumbar area, severe kyphosis and scoliotic curvature noted. The patient has difficulty with inhalation and exhalation due to kyphotic curvature. Seated straight leg raising is negative. Supine straight leg raising negative. Dileep's test is negative. Modified Gaenslen's positive for axial low back pain. Gait is antalgic. The patient is highly forward flexed in a standing position. ASSESSMENT: 1. Lumbar radiculopathy. 2. Spinal stenosis of lumbar spine. 3. Kyphoscoliosis. 4. Osteoarthritis of the bilateral knees. 5. Degeneration of lumbar spine. 6. Chronic opioid dependency. 7. Complex medication management. 8. Chronic intractable pain. PLAN: 1. The patient returns today in followup visit requesting refill on medications. We have taken the liberty of reviewing his K-TRACS and MO-TRACS tracking systems, all of which show he is filling his medications appropriately on time and no other physicians are writing for these medications. He is taking 75 morphine equivalents a day and the combination of MS Contin and oxycodone. He feels his medications are working beneficially. He is only experiencing some minor constipation issues for which he is treated with the ajji-qrp-jckiqpo medications. He returns today requesting refill on medications, understanding 2 months' worth of medications can be provided. We reviewed the fact that opiate medications are being used to provide analgesia adequate to support activities of daily living, not attempting to achieve a specific pain score on the 0-10 Visual Analog Scale. The current opiate medications are providing sufficient analgesia to allow the patient to participate in activities of daily living. The patient is not exhibiting any aberrant behavior suggestive of drug diversion. The patient is not having any [facility] [address] [place] [address] PAIN MANAGEMENT CONSULTATION Name: HANSEL RAMIREZ RUBI Room #: REG [facility].Rowan.#: [id number] Admission: 05/03/18 Attend Phys: Arnulfo Santizo DO Discharge: Date of : 48 Report #: [id number] adverse reactions to medications. The patient is not suffering from daytime somnolence or mental acuity changes. The patient is managing opiate-induced constipation with appropriate eabd-fdr-ljjpmhp agents and dietary considerations. The patient was counseled on concern for caution with operating a motor vehicle while using opiate medications. A physical exam was performed and the patient's functional status was evaluated. All patients with back pain were advised against the bed rest greater than 4 days and were advised to return to normal activities. Pain score assessment was noted and the treatment plan was reviewed with the patient. All current medications, both prescribed and OTC were reviewed and reconciled on the electronic medical record. Tobacco screening was accomplished and smoking cessation was advised when indicated. BMI was noted and diet/exercise modification was recommended for all patients following outside normal parameters. I reviewed with the patient today their responsibilities to safeguard prescription medications, reviewed their responsibility to utilize medications only as prescribed by the physician. They are to seek and receive pain medications only from 1 physician group ( [facility]). They are to use 1 pharmacy and keep the clinic informed if they change pharmacies. Their responsibilities include making followup visits in a timely fashion and to avoid abrupt discontinuation of medication usage. Their responsibilities further include bringing their medications (bottles from the pharmacy with residual pills) to the visit for possible confirmation of pill counts and the patient understands it is their responsibility to submit to random drug screens to ensure both that the medications prescribed are present, and that no other controlled substances are present. All prescriptions provided today were generated electronically. 2. The patient was provided prescription of MS Contin 15 mg dose 1 tab p.o. b.i.d. I have given the patient releases of today, 4 weeks from today, total number per month 60 tablets. Prescriptions were provided to the patient in written form today. 3. The patient was provided prescription of oxycodone/acetaminophen 7.5/325 one tab p.o. q. 6 hours p.r.n. for pain, #120. I have given the patient releases of today, 4 weeks from today, 2 months worth of medication. I did advise the patient to take the medication only when pain is intolerable, not to rely on the medication prophylactically. [address] [address] PAIN MANAGEMENT CONSULTATION Name: HANSEL RAMIREZ Room #: REG ALEKSEY Clemente#: [id number] Admission: 05/03/18 Attend Phys: Arnulfo Santizo DO Discharge: Date of : 46 Report #: [id number] 4. The patient to return to our clinic in 2 months for medication therapy, earlier if interventional treatments might be necessary. <ELECTRONICALLY SIGNED> By: Arnulfo Santizo DO 05/04/18 0848 1614 2154 Arnulfo Santizo DO /nt
[2018-05-03 13:10] VITALS: BP 146/82
== END ==
LOC: PAIN 07:00
DX: M54.16 Radiculopathy, lumbar region (principal); M48.061 Spinal stenosis, lumbar region without neurogenic claudication; M41.9 Scoliosis, unspecified; M17.0 Bilateral primary osteoarthritis of knee; M51.36 Other intervertebral disc degeneration, lumbar region; F11.20 Opioid dependence, uncomplicated; G89.4 Chronic pain syndrome; Z79.899 Other long term (current) drug therapy

== ENCOUNTER 2018-06-09 15:15 | Inpatient (IN) | payer OTHER ==
[~2018-06-09] VITALS: Ht 152.4 cm; Wt 66.7 kg
--- NOTE | ~2018-06-09 | EKG ---
[place] [address] [address] [facility] [place] [employer] 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
--- NOTE | ~2018-06-09 | EKG ---
[address] [place] [address] ELECTROCARDIOGRAM REPORT Name: HANSEL RAMIREZ RUBI Room #: 450-P ADM IN M.R.#: [id number] Admission: 06/09/18 Attend Phys: Nicanor Frank MD Discharge: Date of : 46 Report #: [id number] THIS REPORT FOR: //name// [facility] Test Date: 2018-06-09 Test Time: 22:20:35 Pat Name: HANSEL RAMIREZ Department: Room: 450 P Gender: M [employer]: Selena VAZQUEZ : 1950 Requested By: Bell Owens Order Number: [id number] MD: Terrell Ram Measurements Intervals [place] Rate: 82 P: 62 HI: 200 QRS: 30 QRSD: 149 T: 188 QT: 397 QTc: 464 Interpretive Statements Sinus rhythm Left bundle branch block Baseline wander in lead(s) V2 Compared to ECG 06/09/2018 15:47:37 No significant changes Electronically Signed On 06-10-2018 8:05:54 PRODUCTION SAMPLER by Terrell Ram [email or web address] <ELECTRONICALLY SIGNED> By: Terrell Ram MD, [facility] 06/10/18804 19 19 Terrell Ram MD, [facility] /EPI
--- NOTE | ~2018-06-09 | HC ---
[facility] [place] [address] CONSULTATION Name: HANSEL RAMIREZ RINGGOLD Room #: 221-P ADM IN M.R.#: [id number] Admission: 06/09/18 Attend Phys: Nicanor Frank MD Discharge: Date of : 46 Report #: [id number] THIS REPORT FOR: //name// CC: Nicanor Chan DO DATE OF SERVICE: 06/10/2018 addendum: subsequent ct abd/pelvis did not see worrisome bone or soft tissue changes or masses. Bone scan also did not find/see any worrisome changes. note plans to follow up w pulm etc. at this time no changes to strongly suggest neoplastic or hematologic disorder REASON FOR CONSULTATION: History of superficial bladder cancer from 2002 and 2003, now with abnormal CT chest with soft tissue masses and possible retroperitoneal mass and bony destruction. HISTORY OF PRESENT ILLNESS: The patient is a very pleasant 68-year-old gentleman from the [employer] [facility]. His father was at [employer] [facility] [facility]. 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 His , Ana is present. She has worked as a farm tech in the past. The patient was admitted after coming in to the hospital for shortness of breath and progressive weakness for the last several months. He also, here in the hospital, had a CT chest that showed multiple soft tissue masses in both lungs, questionable retroperitoneal mass, also questionable fracture of the humeral head with lucency in the other. The patient denies any recent fevers or chills, cough worse than usual, any new diarrhea. He does have some constipation at home. No blood in the urine or stool. Weight has been most the same lately, has lost about 10 pounds, I guess. No new skin rashes. PAST MEDICAL HISTORY: Notable for multiple arthritic issues with spinal stenosis by her description, also had, I think, right humeral fracture about a year ago, treated conservatively, also has a history of superficial bladder cancer removed by Dr. Memo Bass in 2002 and 2003. Last cystoscopy was a number of years ago. This might have been done at [facility]. Also, has a history of tonsillectomy and appendectomy. SOCIAL HISTORY: As above. 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 Smoked up until about a year and a half ago. Has a glass of wine most nights. No street drugs. FAMILY HISTORY: Mother had breast cancer. Father, no specific illnesses. Two sisters are alive and well. No children. Has two dogs, one named Trenton and the other named Catalina at home. They live in the [place] region. LABORATORY DATA: Here in the hospital include a BUN of 13, creatinine of 0.7. Transaminases normal. Albumin slightly low at 3.3. Coags are ordered and pending. CBC shows a white count of 7, hemoglobin 11.7, MCV of 87.3, platelets of 358. Differential normal. TSH back in April was 4.06. RADIOLOGIC STUDIES: As mentioned include the CTA with protocol that showed the development of widespread pulmonary metastatic involvement and also kidney images. There are multiple metastases in both lungs measuring 1-1.5 cm. There is also evidence or suggested bony metastatic involvement. There is also mass in the anterior mediastinum, which may reflect enlarged lymph nodes measuring 1.6 x 2.5 cm. Below the diaphragm, there is a suggestion for a large retroperitoneal mass, possibly adenopathy below the pancreas, partially visualized. Large amount of stool present in the large bowel. There is also noted to be significant thoracic and lumbar scoliosis with rotational deformity with multiple lucencies/lesions involving both humeral heads with bone destruction suggesting metastatic involvement. There is a fracture of the right hand and probable tumor extension to the left humeral head. PHYSICAL EXAMINATION: VITAL SIGNS: Height is 5 feet 5 inches, which is 152.4 cm. Weight is 147 pounds, which is 66.7 kilograms. Blood pressure is 160/90, O2 sat 97%, respirations 22, pulse 99, afebrile at 98.1. MOOD: The patient is alert and pleasant. HEENT: Has poor dentition. LUNGS: Have some slight rhonchi and lung sounds more notably in the right than the left, but present bilaterally, almost a slight wheeze. HEART: Regular rate. LYMPHATICS: No enlarged lymph nodes in the supraclavicular, cervical, axillary or inguinal region. ABDOMEN: Slightly obese. No definite mass. EXTREMITIES: Without clubbing, cyanosis or edema. Of note, the patient appears to be slightly emaciated. CURRENT MEDICATIONS: In the hospital currently include nicotine 14 mg patch daily, MiraLax 17 g daily, prednisone 10 daily, duloxetine 30 daily, oxcarbazepine 300 mg q. 8 scheduled, gabapentin 800 mg q. 8 scheduled, Lovenox 40 mg at bedtime, controlled morphine 50 mg q. 12, temazepam 50 mg at bedtime p.r.n., ipratropium and albuterol respiratory therapy q. 4 hours while awake, morphine sulfate p.r.n., Zofran p.r.n., IV fluids, p.r.n. Percocet 1 tab q. 6 [facility] [address] [place] [address] CONSULTATION Name: HANSEL RAMIREZ RINGGOLD Room #: 221-P [facility] [place] [facility].#: [id number] Admission: 06/09/18 Attend Phys: Niacnor Frank MD Discharge: Date of : 46 Report #: [id number] hours p.r.n. ASSESSMENT AND PLAN: 1. History of superficial bladder cancer, now with soft tissue masses in both lungs and possible bony lesions and retroperitoneal adenopathy. We will further image abdomen and pelvis and also obtain bone scan plus plain films of the humeri to look for lesions. We might consider biopsying for both cancer and infection. I have also placed a consult for interventional radiology to look his films, also await Dr. Tobias Amaya's input for possible bronchoscopy. 2. Emphysema, chronic obstructive pulmonary disease. Defer to Dr. Amaya. 3. Osteoarthritis, spinal stenosis and bone pain. Has seen pain clinic. Continue those medications. We will follow with you. <ELECTRONICALLY SIGNED> By: Memo Escudero MD 06/13/18 0726 0829 0041 Memo Escudero MD /giselle
--- NOTE | ~2018-06-09 | HC ---
[facility] [place] [address] CONSULTATION Name: HANSEL RAMIREZ [place] Room #: 221-P [facility] IN M.R.#: [id number] Admission: 06/09/18 Attend Phys: Nicanor Frank MD Discharge: Date of : 46 Report #: [id number] THIS REPORT FOR: //name// CC: Nicanor Gomez REFERRING PHYSICIAN: Dr. Frank. PRIMARY CARE PHYSICIAN: Dr. Arnulfo Gomez. REASON FOR REFERRAL: Dyspnea. HISTORY OF PRESENT ILLNESS: The patient is a 68-year-old white male with severe COPD, presents to the Emergency Room with cough, weakness, fatigue for the past 2 months. A pulmonary consultation was requested. The patient is normally followed by Dr. Amaya in the office. He has known COPD. Spirometry in 07/2017 showed an FEV1 of 1.17 liter or 48% predicted, FVC measuring 79% predicted, FEV1/FVC ratio 48%. He is normally on nebulized DuoNeb 0.5 mg b.i.d., nebulized formoterol 20 mcg b.i.d., he is on prednisone 10 mg daily. He is normally on 2-4 liters of O2. He was last seen in the office on 04/26/2018. The patient states that for the past month or so, he has noticed progressive weakness, fatigue, cough. He has mild productive cough with dark brown sputum. He has also noticed increasing lower extremity edema. With worsening symptoms, the patient presented to the Emergency Room. The patient otherwise denies any recent febrile illness, chest pain or hemoptysis, nausea, vomiting, diarrhea. In the office, he is also followed for hypersomnolence, daytime fatigue. Also noted to be developing muscle weakness. According to the family, he has had radiographic evaluation that suggested possible abnormalities. The exact details are unclear. However, on admission, the patient underwent a CT chest angiogram, which showed no evidence of pulmonary embolus. The: CT chest did show patchy bilateral nodular infiltrates, some of the patchy density is subpleural, some of them are very small in nature. These changes are predominantly in the right lung field. Mediastinum was grossly unremarkable. The radiology report suggested possible metastatic process. There is one lesion measuring 1-1.5 cm in diameter, seen in the right upper lobe. PAST MEDICAL HISTORY: Notable for COPD, severe impairment as mentioned above, depression, anxiety disorder, history of bladder CA, hypertension, [facility] [address] [place] [address] CONSULTATION Name: HANSEL RAMIREZ [place] Room #: 221-P [facility] IN ..#: [id number] Admission: 06/09/18 Attend Phys: Nicanor Frank MD Discharge: Date of : 46 Report #: [id number] hypercholesterolemia, left bundle-branch block, nephrolithiasis, chronic back pain, mild aortic stenosis, mitral regurgitation. PAST SURGICAL HISTORY: Notable for appendectomy, bladder tumor resection in 2002 and 2003, herniorrhaphy, lithotripsy. ALLERGIES: None to medications. HOME MEDICATIONS: Include vitamins, Cymbalta, Neurontin, Advil, DuoNeb, nebulized Brovana and formoterol as mentioned above, glucosamine supplements, Meena, Nasacort, Flomax. FAMILY HISTORY: Notable for alzheimers in the mother who at the age of 87. Father with dementia at the age of 91. SOCIAL HISTORY: The patient has smoked about a pack a day for 50 years, quit in 2017. REVIEW OF SYSTEMS: As mentioned above. Otherwise, denies any recent weight loss. Unilateral weakness or paresthesias. He denies any headache. Denies any hemoptysis or hematemesis, hematochezia or melena. PHYSICAL EXAMINATION: GENERAL: He is awake, alert. He appears mildly dyspneic. VITAL SIGNS: Temperature 98 degrees Fahrenheit, pulse is 100, respiratory rate 22, blood pressure 160/90 mmHg, saturation 97%. HEENT: Normocephalic, atraumatic. NECK: Supple, without any lymphadenopathy or thyromegaly. CHEST: Breath sounds decreased bilaterally with bkwq-km-iynlhwnl expiratory wheezes. No rales. CARDIOVASCULAR: Normal S1, S2. There are no murmurs or gallop. There is no JVD. There is no carotid bruit. Pulses 2+/4+ bilaterally. ABDOMEN: Soft, nontender. No organomegaly or masses felt. GENITOURINARY: Deferred. RECTAL: Deferred. EXTREMITIES: There is no edema, cyanosis or clubbing. LABORATORY DATA: Chest x-ray shows mildly elevated right hemidiaphragm, no obvious abnormalities. Chest x-ray from 04/01/2018 shows patchy and nodular density seen in the right lung field. CT chest angiogram as mentioned above, mild chronic interstitial changes are noted. Bone scan shows degenerative changes involving the shoulder joint, the wrist joints, feet and lumbar spine; mildly increased uptake seen in the right ribs with previously healed rib fracture from CT chest in 06/09/2018. No evidence of focal uptake to suggest metastases. Left humerus x-ray was notable for degenerative changes. Shoulder x-ray showed severe chronic osteoarthritis. CT abdomen and pelvis shows large [facility] [address] [place] [address] CONSULTATION Name: HANSEL RAMIREZ Room #: 221-P [facility] IN Diaz#: [id number] Admission: 06/09/18 Attend Phys: Nicanor Frank MD Discharge: Date of : 46 Report #: [id number] amount of stool in the colon, multiple bibasilar lung nodules as mentioned above. Influenza A and B swab is negative. Electrolytes are normal. Liver enzymes are normal. WBC is 7000, hemoglobin 11.7. Arterial blood gas revealed pH 7.42, pCO2 of 45, pO2 72 on room air. Albumin 3.3. IMPRESSION: 1. Progressive dyspnea, weakness in this 68-year-old white male. Etiology is not clear at this time, but suspect may be related to severe pulmonary impairment. The patient has had progressive daytime fatigue, sleepiness along with muscle weakness as noted by Dr. Amaya on his last visit. The radiographic changes suggest possibility of metastatic disease, though is not confirmatory. 2. Chronic obstructive pulmonary disease, severe impairment with mild exacerbation. 3. Elpkh-jr-qdhalfa hypoxic respiratory failure, normally on 2-4 liters of O2. 4. History of daytime hypersomnolence, fatigue, rule out sleep disorder. 5. Progressive weakness ? neurodegenerative disorder. The patient will benefit from neurologic evaluation. 6. Recent weight loss as mentioned above. Please see comments below. 7. Chronic back pain. 8. Remote history of bladder tumor in 2002. DISCUSSION: The CT chest angiogram findings and report is noted. The skeletal x-rays is also noted. It appears that there are no obvious metastatic skeletal processes. Cause of nodular density remains unclear. It may be inflammatory versus possible neoplasm. Agree with bronchodilators, corticosteroids and broad spectrum antibiotics. DVT and GI prophylaxis recommended. For now, would treat for COPD exacerbation. Once the patient is stable, he will benefit from further workup regarding the lung nodules. the Patient will benefit from a PET scan imaging as an outpatient. Thank you for the consultation. <ELECTRONICALLY SIGNED> By: Chad Garrison MD 06/11/18 1538 [id number] Chad Garrison MD /nt
[2018-06-09 15:16] VITALS: BP 145/85
[2018-06-09 16:21] LABS: ABSOLUTE NEUTROPHILS 4.4 thou/uL (1.4-8.2); BASOPHILS 0.2 % (0.0-2.0); HEMATOCRIT 34.3 % (42.0-52.0); HEMOGLOBIN 11.7 gm/dL (14.0-18.0); LYMPHOCYTES 24.3 % (24.0-44.0); MCH 29.8 pg (26.0-34.0); MCHC 34.1 g/dL (28.0-37.0); MCV 87.3 fL (80.0-100.0); MONOCYTES 7.2 % (1.0-8.0); PLATELET COUNT 358 thou/uL (150-400); POLYS 62.3 % (36.0-66.0); RBC 3.92 mil/uL (4.50-6.00); RDW 13.4 % (10.5-14.5)
[2018-06-09 16:30] LABS: ANION GAP 7 mmol/L (7-16); BUN 13 mg/dL (7-18); CALCIUM 9.7 mg/dL (8.5-10.1); CHLORIDE 97 mmol/L (98-107); CO2 30 mmol/L (21-32); CREATININE 0.7 mg/dL (0.7-1.3); GLUCOSE 124 mg/dL (74-106); POTASSIUM 4.1 mmol/L (3.5-5.1); SODIUM 134 mmol/L (136-145)
[2018-06-09 16:38] LABS: ALBUMIN 3.3 g/dL (3.4-5.0); SGOT 22 U/L (15-37); SGPT 30 U/L (30-65); TOTAL BILIRUBIN 0.2 mg/dL (<0.1-1.0); TOTAL PROTEIN 6.8 g/dL (6.4-8.2); TROPONIN-I <0.06 ng/mL (<0.06)
[2018-06-09 16:44] LABS: BE(vivo) 3.8 mmol/L (-2 to +3); HCO3 28.8 mmol/L (22.0-26.0); PO2 72.9 mmHg (80.0-100.0); pH 7.424 (7.360-7.450); sO2 94.9 % (92.0-98.0)
[2018-06-09 20:45] VITALS: BP 160/86; BP 180/86
[2018-06-09 21:31] VITALS: BP 153/89
[2018-06-10 03:32] VITALS: BP 153/88
[2018-06-10 06:22] LABS: HEMATOCRIT 33.1 % (42.0-52.0); HEMOGLOBIN 11.3 gm/dL (14.0-18.0); MCH 30.3 pg (26.0-34.0); MCHC 34.2 g/dL (28.0-37.0); MCV 88.4 fL (80.0-100.0); RBC 3.74 mil/uL (4.50-6.00); RDW 13.8 % (10.5-14.5); WBC 7.4 thou/uL (4.0-11.0)
[2018-06-10 06:34] LABS: CALCIUM 9.2 mg/dL (8.5-10.1); CREATININE 0.7 mg/dL (0.7-1.3); POTASSIUM 3.7 mmol/L (3.5-5.1)
[2018-06-10 07:28] VITALS: BP 160/90
[2018-06-10 08:41] LABS: PROTIME 10.1 Seconds (9.3-11.4)
[2018-06-10 14:31] VITALS: BP 160/90
[2018-06-10 16:28] VITALS: BP 173/101
[2018-06-10 20:25] VITALS: BP 166/99
[2018-06-11 07:31] LABS: CALCIUM 9.8 mg/dL (8.5-10.1); CREATININE 0.7 mg/dL (0.7-1.3); POTASSIUM 4.2 mmol/L (3.5-5.1)
[2018-06-11 07:45] VITALS: BP 179/97
[2018-06-11 19:24] VITALS: BP 156/76
[2018-06-12 08:03] LABS: CALCIUM 9.8 mg/dL (8.5-10.1); CREATININE 0.7 mg/dL (0.7-1.3); POTASSIUM 4.3 mmol/L (3.5-5.1)
[2018-06-12 19:30] VITALS: BP 174/91
[2018-06-12 20:30] VITALS: BP 158/89
[2018-06-13 08:38] VITALS: BP 150/83
[2018-06-13] MEDS ORDERED: PREDNISONE 10 M10 MG PO (10:45)
[2018-06-13] MEDS ORDERED: LISINOPRIL10 MG PO (10:45)
[2018-06-13 12:50] VITALS: BP 150/83
== END 2018-06-13 14:37 | disposition home or self-care (01) | DRG 189 ==
LOC: ER 15:15 → EROBS 18:18 → 4W 18:18 → SICU 21:10 → ENTRNSPT 06-13 14:06 → EDTRNSPTSTS 06-13 14:08 → SICU 06-13 14:37
PROVIDERS: Hospitalist; Internal Medicine Hematology & Oncology; Internal Medicine Pulmonary Disease; Physician Assistant
DX: J96.21 Acute and chronic respiratory failure with hypoxia (principal); J44.1 Chronic obstructive pulmonary disease with (acute) exacerbation; R91.1 Solitary pulmonary nodule; F32.9 Major depressive disorder, single episode, unspecified; F41.9 Anxiety disorder, unspecified; I10 Essential (primary) hypertension; E78.00 Pure hypercholesterolemia, unspecified; G89.29 Other chronic pain; M54.9 Dorsalgia, unspecified; M48.00 Spinal stenosis, site unspecified; M19.90 Unspecified osteoarthritis, unspecified site; M62.84 Sarcopenia; R62.7 Adult failure to thrive; R63.4 Abnormal weight loss; K59.00 Constipation, unspecified; Z68.28 Body mass index [BMI] 28.0-28.9, adult; Z79.52 Long term (current) use of systemic steroids; Z81.8 Family history of other mental and behavioral disorders; Z90.49 Acquired absence of other specified parts of digestive tract; Z87.891 Personal history of nicotine dependence; Z85.51 Personal history of malignant neoplasm of bladder; Z87.442 Personal history of urinary calculi; Z85.3 Personal history of malignant neoplasm of breast; Z79.899 Other long term (current) drug therapy
CPT/HCPCS: 10045; 15002

== ENCOUNTER → 2018-06-28 | Outpatient (CLI) | payer OTHER ==
[~2018-06-28] VITALS: Ht 165.1 cm; Wt 66.0 kg
[~2018-06-28] MED LIST changes: +IBU800 MG PO; +LISINOPRIL10 MG PO; +MORPHINE SULFAT15 MG PO; +OXCARBAZEPINE300 MG PO
--- NOTE | ~2018-06-28 | HPC ---
[facility] [address] [place] [address] PAIN MANAGEMENT CONSULTATION Name: RAMIREZSTEPHHANSEL RUBI Room #: REG [facility] Chyna#: [id number] Admission: 06/28/18 Attend Phys: Emi Damian Discharge: Date of : 46 Report #: [id number] THIS REPORT FOR: //name// CC: Emi Gomez DATE OF SERVICE: 06/28/2018 REASON FOR VISIT TODAY: Low back pain with bilateral lower extremity pain. HISTORY OF PRESENT ILLNESS: This is a very pleasant 68-year-old male with a longstanding history of low back pain and bilateral lower extremity pain with paresthesias. He returns to the pain clinic today for refill of his medications. He tells me he has recently been hospitalized for his worsening COPD, had a flareup. They are working him up also for possible metastasis. He is scheduled for a PET scan in July. Evidently, there were some nodules found in his lungs, but they may be infection or scars from previous COPD episodes per the patient. He does have some shortness of breath, but is not wearing any oxygen. His oxygen level was 97% when he first got to the room. He tells me that he has been working hard to decrease some of his oxycodone use, has been taking three a day recently, but occasionally he will take a fourth one. He continues on his MS Contin for his long-term pain medicine. He denies constipation currently. He tells me his pain score is 8/10, worse with walking and standing, but better with the medications, rest, heat and massage. He is using a cane today for walking, slightly unsteady on his feet today. His daughter is here present with him. He would like a refill of his medications. ALLERGIES: No known drug allergies. MEDICATIONS: Currently, prednisone 20 mg twice a day, lisinopril 10 mg daily, oxycodone 7.5/325 mg 3-4 times a day, MS Contin 15 mg twice a day, Trileptal 300 mg every 8 hours, gabapentin 800 mg every 8 hours, Cymbalta 30 mg daily, Symbicort daily and albuterol inhalers as needed. The patient tells me he has been weaned off his tizanidine. PQRS: 1. History of osteoarthritis in his upper extremities and his back and his hips. Denies rheumatoid arthritis. 2. Height is 5 feet 5 inches, weight is 145, BMI is 24.2. 3. Vital signs: Blood pressure 100/57, pulse ox 108, respirations 18, oxygen sat 97%. Pain score today is 8/10. 4. Fall risk: Denies dizziness. He uses a cane for walking and has not fallen in the last 3 months. 5. The patient is not on any blood thinners and does not have a history of hypertension. 6. Opioid therapy is greater than 6 weeks. [place] opioid [place] [address] PAIN MANAGEMENT CONSULTATION Name: HANSEL RAMIREZ Room #: REG [facility] [place]#: [id number] Admission: 06/28/18 Attend Phys: Emi Damian Discharge: Date of : 46 Report #: [id number] the chart. Risk assessment tool is low. Functional assessment is 37/70. 7. Recreational drug use: He has never used. He is a former smoker. His alcohol use is one small glass of alcohol daily. We did check the [place] prescription monitoring system. The patient is filling appropriately from Dr. Arnulfo Santizo and he is in a timely fashion for his medications today. PHYSICAL EXAMINATION: GENERAL: Well-developed, well-nourished, kyphotic, scoliotic 68-year-old male, appears his stated age. Placing his pain score today at 8/10. HEENT: Normocephalic, atraumatic. Pupils equal, round, reactive. Extraocular eye muscles are intact. Speech is fluent. EXTREMITIES: No clubbing, no cyanosis. MUSCULOSKELETAL: The patient does have tenderness over his lumbar spine, complains of knee pain. Does have severe kyphosis and scoliotic curvature noted, difficulty with breathing, inhalation and exhalation, due to this kyphotic curvature, is not wearing oxygen. The patient's gait is antalgic. The patient is highly forward flexed in a standing position. ASSESSMENT: 1. Lumbar radiculopathy. 2. Spinal stenosis of lumbar spine. 3. Kyphoscoliosis. 4. Osteoarthritis of bilateral knees. 5. Degeneration of lumbar spine. 6. Chronic opioid dependency. 7. Complex medical management. 8. Chronic intractable pain. 9. Chronic obstructive pulmonary disease. We reviewed the fact that opiate medications are being used to provide analgesia adequate to support activities of daily living, not attempting to achieve a specific pain score on the 0-10 Visual Analog Scale. The current opiate medications are providing sufficient analgesia to allow the patient to participate in activities of daily living. The patient is not exhibiting any aberrant behavior suggestive of drug diversion. The patient is not having any adverse reactions to medications. The patient is not suffering from daytime somnolence or mental acuity changes. The patient is managing opiate-induced constipation with appropriate xjfj-qrz-gzthuca agents and dietary considerations. The patient was counseled on concern for caution with operating a motor vehicle while using opiate medications. A physical exam was performed and the patient's functional status was evaluated. All patients with back pain were advised against the bed rest greater than 4 days and were advised to return to normal activities. Pain score assessment was noted and the treatment plan was reviewed with the patient. All current medications, both prescribed and OTC were reviewed and reconciled on the [address] [address] PAIN MANAGEMENT CONSULTATION Name: RAMIREZHANSEL RUBI Room #: REG [facility] [place]#: [id number] Admission: 06/28/18 Attend Phys: Emi Damian Discharge: Date of : 46 Report #: [id number] electronic medical record. Tobacco screening was accomplished and smoking cessation was advised when indicated. BMI was noted and diet/exercise modification was recommended for all patients following outside normal parameters. I reviewed with the patient today their responsibilities to safeguard prescription medications, reviewed their responsibility to utilize medications only as prescribed by the physician. They are to seek and receive pain medications only from 1 physician group ( [facility]). They are to use 1 pharmacy and keep the clinic informed if they change pharmacies. Their responsibilities include making followup visits in a timely fashion and to avoid abrupt discontinuation of medication usage. Their responsibilities further include bringing their medications (bottles from the pharmacy with residual pills) to the visit for possible confirmation of pill counts and the patient understands it is their responsibility to submit to random drug screens to ensure both that the medications prescribed are present, and that no other controlled substances are present. All prescriptions provided today were generated electronically. PLAN: 1. The patient returns to the pain clinic today for followup of his refill of his medications. He tells me that he has been trying to take 3 tablets of his oxycodone a day along with his morphine 15 mg twice a day. We discussed at length about decreasing his Percocets, especially with his increasing COPD, breathing problems. At this time, it was determined to continue his MS Contin 15 mg, #60, to be refilled today, 4 week and 8-week. Percocet 7.5 will be given for #115 for today, 4-week, and 8-week. The patient will continue to try and decrease this use to 3 only a day by the next refill appointment. The patient also given scripts for ibuprofen 800 mg 3 times a day, #90 with 5 refills; gabapentin 800 mg 3 times a day, #90 with 5 refills; Trileptal 300 mg, #90 with 5 refills. 2. The patient and family discussed using a walker versus cane. The patient tells me that he does not have the stamina and has been not able to be out and about as much as he used to due to his breathing difficulties. We did talk about using a rolling walker with a seat. Therefore, if he wanted to go out to eat, he could rest part way in and then go and continue on and therefore he did not feel so secluded having to stay at home and missing out on things that he enjoys. The patient is unsure if he is willing to go to using a walker at this time, but will consider it. 3. The patient is having a PET scan on 07/11/2018 and the patient tells us he will keep us informed of those results through Dr. Escudero. 4. The patient agreed with the plan of care. We did do a buccal drug screen on him today since there was not one most recently in his chart. The patient is agreeable with this. [facility] [address] [place] [address] PAIN MANAGEMENT CONSULTATION Name: HANSEL RAMIREZ RUBI Room #: REG [facility] Chyna#: [id number] Admission: 06/28/18 Attend Phys: mEi Damian Discharge: Date of : 46 Report #: [id number] The patient seen in collaboration with Dr. Arnulfo Santizo today. <ELECTRONICALLY SIGNED> By: Emi Damian 06/29/18 0719 [id number] [id number] Emi Damian /nt
[2018-06-28 12:53] VITALS: BP 100/57
== END ==
LOC: PAIN 08:44
DX: M51.16 Intervertebral disc disorders with radiculopathy, lumbar region (principal); M48.061 Spinal stenosis, lumbar region without neurogenic claudication; M17.0 Bilateral primary osteoarthritis of knee; F11.20 Opioid dependence, uncomplicated; G89.4 Chronic pain syndrome; J44.9 Chronic obstructive pulmonary disease, unspecified; M41.86 Other forms of scoliosis, lumbar region; Z79.899 Other long term (current) drug therapy

== ENCOUNTER → 2018-07-11 | Outpatient (CLI) | payer OTHER | LOC: PET 13:33 | DX: R91.8 Other nonspecific abnormal finding of lung field (principal); R91.1 Solitary pulmonary nodule; M25.812 Other specified joint disorders, left shoulder; M25.811 Other specified joint disorders, right shoulder; M25.412 Effusion, left shoulder; M25.411 Effusion, right shoulder ==

== ENCOUNTER 2018-07-16 22:44 | Emergency (ER) | payer OTHER ==
[~2018-07-16] VITALS: Ht 165.1 cm; Wt 64.9 kg
[2018-07-16 23:41] LABS: ABSOLUTE NEUTROPHILS 7.7 thou/uL (1.4-8.2); BASOPHILS 0.9 % (0.0-2.0); EOSINOPHILS 1.8 % (0.0-3.0); HEMATOCRIT 34.5 % (42.0-52.0); HEMOGLOBIN 11.9 gm/dL (14.0-18.0); LYMPHOCYTES 10.5 % (24.0-44.0); MCHC 34.6 g/dL (28.0-37.0); MCV 86.6 fL (80.0-100.0); PLATELET COUNT 345 thou/uL (150-400); POLYS 78.8 % (36.0-66.0); RBC 3.99 mil/uL (4.50-6.00); WBC 9.8 thou/uL (4.0-11.0)
[2018-07-16 23:49] LABS: CALCIUM 9.3 mg/dL (8.5-10.1); CREATININE 0.8 mg/dL (0.7-1.3); POTASSIUM 4.8 mmol/L (3.5-5.1)
[2018-07-17] MEDS ORDERED: KEFLEX500 M1 PO (01:33)
[2018-07-17] MEDS ORDERED: BACTRIM DS TAB1 EACH PO (01:33)
[2018-07-17] MEDS ORDERED: MOBIC15 MG PO (01:33)
[2018-07-17 01:45] VITALS: BP 110/57
== END 2018-07-17 01:45 | disposition home or self-care (01) ==
LOC: ER 22:44
PROVIDERS: Emergency Medicine
DX: L03.114 Cellulitis of left upper limb (principal); R51 Headache; J44.9 Chronic obstructive pulmonary disease, unspecified; Z87.891 Personal history of nicotine dependence; Z90.49 Acquired absence of other specified parts of digestive tract; Z90.89 Acquired absence of other organs

== ENCOUNTER → 2018-09-27 | Outpatient (CLI) | payer OTHER ==
[~2018-09-27] VITALS: Ht 165.1 cm; Wt 65.4 kg
[~2018-09-27] MED LIST changes: +ALBUTEROL2.5 MG/31 INH; +BACTRIM DS TAB1 EACH PO; +CLINDAMYCIN HC300 MG PO; +KEFLEX500 M1 PO; +MOBIC15 MG PO
[2018-09-27 13:09] VITALS: BP 132/84
--- NOTE | 2018-09-27 13:27 | NUR ---
Pain Clinic Assessment: 1. History of Osteoarthritis: Right Upper Extremity History of Rheumatoid Arthritis: Not Applicable 2. Height: 5 ft. 5 in. 165.1 cm. Weight: 144.2 lb. oz. 65.409 kg. Patient's BMI: 24.0 3. Vital Signs: BP: 132/84 Pulse: 88 Resp: 14 Temp: 02 Sat: 100 ECG Mon: 4. Pain Intensity: 7-8 5. Fall Risk: Dizziness: N Needs help standing or walking: Y Fallen in the last 3 months: Y Fall risk comments: 6. Patient on Blood Thinner: None 7. History of Hypertension: N 8. Opioid Therapy greater than 6 weeks: Y Opiate Contract Signed: 09/16/17 9. Risk Assessment Tool Provided: 0 LOW RISK 10. Functional Assessment Tool: 11. Recreational Drug Use: Never Drug Type: Tobacco Use: Former Smoker Tobacco Type: Amount or Packs/day: How Many Years: Alcohol Use: Yes Frequency: Daily Quant: 1 PER DAY RED WINE
--- NOTE | 2018-09-30 07:41 | HPC ---
[facility] [address] [place] [address] PAIN MANAGEMENT CONSULTATION Name: JAMESHANESL RUBI Room #: REG Yoav Rodrigues.#: [id number] Admission: 09/27/18 ������������������ Attend Phys: Arnulfo Santizo DO Discharge: ������������������ Date of : 48 Report #: [id number] THIS REPORT FOR: //name// CC: Arnulfo Chan DATE OF SERVICE: 09/27/2018 CHIEF COMPLAINT: Low back pain, bilateral lower extremity pain with paresthesias, bilateral lower extremity cellulitis with open wounds. HISTORY OF PRESENT ILLNESS: As you know, the patient is a 68-year-old male with longstanding history of low back pain, bilateral lower extremity pain with paresthesias. He returns to pain clinic for refill of medications. He is currently being treated for bilateral lower extremity cellulitis. Apparently, he has been on clindamycin, which did not improve his symptoms. He has been transferred over to cephalexin, again not improving his symptoms. He has open wounds on the back of his right leg with drainage. There is 4+ pitting edema in the lower extremities bilaterally below the knees. He has significant redness and irritation. There appears to be some weeping of fluids throughout the cellulitic area. He returns stating pain medications for back have been working well. He has been on an extended treatment with my partner, Dr. Mao Santizo who was giving the patient MS Contin 15 mg twice a day along with oxycodone on a p.r.n. basis. He returns today in followup visit requesting the refill of medications. He is to see wound care for his bilateral lower extremity cellulitis and open wounds. He also is following up with his PCP. He returns requesting medication management. ALLERGIES: No known drug allergies. CURRENT MEDICATIONS: Albuterol 2 puffs q.4h. p.r.n., ibuprofen 800 mg 3 times a day, oxcarbazepine 300 mg 3 times a day, Percocet 7.5/325 three a day, MS Contin 15 mg twice a day, gabapentin 800 mg t.i.d., duloxetine 30 mg once a day, prednisone 10 mg once a day, Symbicort 160 mcg/4.5 mcg inhaled once a day, albuterol p.r.n. SOCIAL HISTORY: The patient denies tobacco, alcohol, IV or illicit drug use. He is accompanied by his present in room today. IMAGING: There is no new imaging available. PQRS: The patient has known osteoarthritic changes of the right upper extremity, low back and thoracic spine. No rheumatoid arthritis diagnosis. He is placing pain intensity today 7-10. He is a fall risk and has had falls in the last 3 months. He is using a cane for ambulation. [place] [address] PAIN MANAGEMENT CONSULTATION Name: HANSEL RAMIREZ Room #: REG [facility].#: [id number] Admission: 09/27/18 ������������������ Attend Phys: Arnulfo Santizo DO Discharge: ������������������ Date of : 48 Report #: [id number] past possibility of using a roller walker for better stabilization. He is not on blood thinners. He is not treated for hypertension. He is on chronic opioids and has been under contract with [facility] for years. He has a low risk for opioid addiction. He places pain impact score 37/70, moderate interference of daily activities secondary to pain. PHYSICAL EXAMINATION: VITAL SIGNS: Blood pressure 132/84, pulse is 88, respiratory rate 14 and unlabored. The patient is 100% on room air. Height 5 feet 5 inches tall, weight 144.2 pounds, BMI calculated 24.0. GENERAL: Well-developed, kyphotic, scoliotic 68-year-old male, appears stated age. He is placing pain 7-8/10. HEENT: Normocephalic, atraumatic. Pupils equal, round, reactive to light. Extraocular muscles are intact. Sclerae nonicteric without injection. NEUROLOGIC: Cranial nerves 2-12 grossly intact. Speech fluent. The patient deemed a good historian. LUNGS: Appear clear. No wheeze, rhonchi or rales. CARDIOVASCULAR: Regular. No appreciable gallop, no rub. ABDOMEN: Soft. EXTREMITIES: Show no clubbing, no cyanosis. There is significant 4+ pitting edema in the lower extremities bilaterally, noted cellulitic changes in the right lower extremity and left lower extremity, open wounds on the right lower extremity. There is tenderness noted over the paraspinal musculature of lower lumbar spine. There is severe kyphosis and scoliotic curvature of the thoracolumbar area. The gait is antalgic. Strength in lower extremities are diminished due to what appears to be deconditioning. Muscle bulk and tone appear symmetrical across left and right lower extremity. ASSESSMENT: 1. Lumbar radiculopathy. 2. Progressively worsening spinal stenosis of lumbar spine. 3. Kyphoscoliosis. 4. Osteoarthritis of the bilateral knees. 5. Degeneration of lumbar spine. 6. Bilateral lower extremity cellulitis. 7. Complex medication management. 8. Chronic opioid dependency. 9. Chronic intractable pain. PLAN: 1. The patient returns today in followup visit requesting refill of medications stating his medications are working beneficially for pain control despite his elevated pain level of 7-8/10 today. He states that the back pain itself is well controlled with the MS Contin and Percocet combination; in fact, he has been able to wean somewhat from his Percocet over the last couple of weeks, but the new onset of cellulitis, the swelling in the lower extremities and the pain [facility] [address] [place] [address] PAIN MANAGEMENT CONSULTATION Name: RAMIREZHANSEL RUIB Room #: REG ALEKSEY Clemente#: [id number] Admission: 09/27/18 ������������������ Attend Phys: Arnulfo Santizo DO Discharge: ������������������ Date of : 48 Report #: [id number] related to the open wounds has led to intensification of pain to 7-8/10. He returns today requesting a refill of current medication management. He does not want further adjustments at this time, but is considering a reduction in opioids in the very near future. 2. I have strongly recommended the patient to follow up with his PCP as quickly as possible. It does appear that the antibiotic therapy that he has received to date has been ineffective at treating his cellulitis. It does appear that his cellulitis is worsening based on his description of changes in his right lower extremity with opening wounds and generalized weeping of the lower extremities due to increased edema. The patient states he has a followup with his PCP tomorrow. I have also contacted the Wound Care Clinic here at [facility] to try to facilitate getting the patient back into wound care. Apparently, he had an appointment last week, but due to illness, he was unable to attend. We are hopeful that our call will be returned in the next 24 hours and we can help the patient move forward with wound care or this can be done through his PCP who he will be seeing tomorrow. 3. We reviewed the fact that opiate medications are being used to provide analgesia adequate to support activities of daily living, not attempting to achieve a specific pain score on the 0-10 Visual Analog Scale. The current opiate medications are providing sufficient analgesia to allow the patient to participate in activities of daily living. The patient is not exhibiting any aberrant behavior suggestive of drug diversion. The patient is not having any adverse reactions to medications. The patient is not suffering from daytime somnolence or mental acuity changes. The patient is managing opiate-induced constipation with appropriate ubyl-cep-zkxbjcd agents and dietary considerations. The patient was counseled on concern for caution with operating a motor vehicle while using opiate medications. A physical exam was performed and the patient's functional status was evaluated. All patients with back pain were advised against the bed rest greater than 4 days and were advised to return to normal activities. Pain score assessment was noted and the treatment plan was reviewed with the patient. All current medications, both prescribed and OTC were reviewed and reconciled on the electronic medical record. Tobacco screening was accomplished and smoking cessation was advised when indicated. BMI was noted and diet/exercise modification was recommended for all patients following outside normal parameters. I reviewed with the patient today their responsibilities to safeguard prescription medications, reviewed their responsibility to utilize medications only as prescribed by the physician. They are to seek and receive pain medications only from 1 physician group ( [facility]). They are to use 1 pharmacy and keep the clinic informed if they change pharmacies. Their responsibilities include making followup visits in a timely fashion and to avoid abrupt discontinuation of medication usage. Their responsibilities further include bringing their medications (bottles from the pharmacy with residual [facility] [address] [place] [address] PAIN MANAGEMENT CONSULTATION Name: HANSEL RAMIREZ Room #: REG ALEKSEY Clemente#: [id number] Admission: 09/27/18 ������������������ Attend Phys: Arnulfo Santizo DO Discharge: ������������������ Date of : 48 Report #: [id number] pills) to the visit for possible confirmation of pill counts and the patient understands it is their responsibility to submit to random drug screens to ensure both that the medications prescribed are present, and that no other controlled substances are present. All prescriptions provided today were generated electronically. 4. The patient was provided prescription of MS Contin 15 mg dose 1 tab p.o. b.i.d., I have given the patient #60 releasing today and 4 weeks from today that is 2 months' worth of medication. 5. The patient was provided prescription of Percocet 7.5/325s one tab p.o. q.i.d. p.r.n. pain, I have given the patient #115 tablets with releasing today and 4 weeks from today. 6. The patient had a discussion about the opioid equivalencies of the current medications he is on. He is taking 30 mg morphine equivalents in the MS Contin. He is taking 60 morphine equivalents with his Percocet for a total of 90 morphine equivalents a day. This places the patient at a higher risk for opioid complications and thus, he will have to be seen on an every other month basis. If he is able to reduce his dose to below 60 morphine equivalents a day, he would be able to be seen on an every 3-month basis, which would be much more convenient for the patient. He will consider his options by reducing his opioid if he wishes to do so. 7. We will see the patient back in followup visit in 2 months for medication management. We will be available if necessary to assist in getting the patient into wound care and getting in to see his PCP in regards to his bilateral lower extremity cellulitis. ��������������������������������������������� <ELECTRONICALLY SIGNED> ���������������������������������������� By: Arnulfo Santizo DO ��������������������������������������������� 09/30/18 0741 0848 20 Arnulfo Santizo DO /giselle
== END ==
LOC: PAIN 06:58
DX: M51.16 Intervertebral disc disorders with radiculopathy, lumbar region (principal); M17.0 Bilateral primary osteoarthritis of knee; M48.061 Spinal stenosis, lumbar region without neurogenic claudication; L03.116 Cellulitis of left lower limb; L03.115 Cellulitis of right lower limb; G89.4 Chronic pain syndrome; M41.86 Other forms of scoliosis, lumbar region; F11.20 Opioid dependence, uncomplicated; Z79.899 Other long term (current) drug therapy

== ENCOUNTER → 2018-09-29 | Outpatient (CLI) | payer OTHER | LOC: HYPER 09-14 08:19 | DX: I87.333 Chronic venous hypertension (idiopathic) with ulcer and inflammation of bilateral lower extremity (principal); L97.812 Non-pressure chronic ulcer of other part of right lower leg with fat layer exposed; L97.821 Non-pressure chronic ulcer of other part of left lower leg limited to breakdown of skin; L02.419 Cutaneous abscess of limb, unspecified; E03.9 Hypothyroidism, unspecified; G89.29 Other chronic pain; J43.9 Emphysema, unspecified; J42 Unspecified chronic bronchitis; E78.00 Pure hypercholesterolemia, unspecified; M81.0 Age-related osteoporosis without current pathological fracture; M19.90 Unspecified osteoarthritis, unspecified site; M41.20 Other idiopathic scoliosis, site unspecified; F41.9 Anxiety disorder, unspecified; F32.9 Major depressive disorder, single episode, unspecified; Z79.52 Long term (current) use of systemic steroids; Z87.891 Personal history of nicotine dependence; Z85.51 Personal history of malignant neoplasm of bladder ==

== ENCOUNTER → 2018-10-12 | Outpatient (CLI) | payer OTHER | LOC: HYPER 06:56 | DX: I87.333 Chronic venous hypertension (idiopathic) with ulcer and inflammation of bilateral lower extremity (principal); L97.812 Non-pressure chronic ulcer of other part of right lower leg with fat layer exposed; L02.419 Cutaneous abscess of limb, unspecified; G89.29 Other chronic pain; M41.20 Other idiopathic scoliosis, site unspecified; E78.00 Pure hypercholesterolemia, unspecified; M19.90 Unspecified osteoarthritis, unspecified site; M81.0 Age-related osteoporosis without current pathological fracture; J43.9 Emphysema, unspecified; J42 Unspecified chronic bronchitis; F32.9 Major depressive disorder, single episode, unspecified; F41.9 Anxiety disorder, unspecified; Z87.891 Personal history of nicotine dependence; Z79.52 Long term (current) use of systemic steroids; Z85.51 Personal history of malignant neoplasm of bladder ==

== ENCOUNTER → 2018-10-27 | Outpatient (CLI) | payer OTHER | LOC: HYPER 06:56 | DX: I87.333 Chronic venous hypertension (idiopathic) with ulcer and inflammation of bilateral lower extremity (principal); L97.812 Non-pressure chronic ulcer of other part of right lower leg with fat layer exposed; L97.821 Non-pressure chronic ulcer of other part of left lower leg limited to breakdown of skin; L02.419 Cutaneous abscess of limb, unspecified; E78.00 Pure hypercholesterolemia, unspecified; E03.9 Hypothyroidism, unspecified; G89.29 Other chronic pain; J43.9 Emphysema, unspecified; M41.20 Other idiopathic scoliosis, site unspecified; M19.90 Unspecified osteoarthritis, unspecified site; M81.0 Age-related osteoporosis without current pathological fracture; F41.9 Anxiety disorder, unspecified; F32.9 Major depressive disorder, single episode, unspecified; Z85.51 Personal history of malignant neoplasm of bladder; Z79.52 Long term (current) use of systemic steroids; Z87.891 Personal history of nicotine dependence ==

== ENCOUNTER → 2018-11-10 | Outpatient (CLI) | payer OTHER | LOC: HYPER 06:40 | DX: I87.333 Chronic venous hypertension (idiopathic) with ulcer and inflammation of bilateral lower extremity (principal); L97.812 Non-pressure chronic ulcer of other part of right lower leg with fat layer exposed; L97.821 Non-pressure chronic ulcer of other part of left lower leg limited to breakdown of skin; L02.419 Cutaneous abscess of limb, unspecified; M41.20 Other idiopathic scoliosis, site unspecified; E78.00 Pure hypercholesterolemia, unspecified; M19.90 Unspecified osteoarthritis, unspecified site; M81.0 Age-related osteoporosis without current pathological fracture; G89.29 Other chronic pain; J43.9 Emphysema, unspecified; J42 Unspecified chronic bronchitis; F32.9 Major depressive disorder, single episode, unspecified; F41.9 Anxiety disorder, unspecified; Z87.891 Personal history of nicotine dependence; Z79.52 Long term (current) use of systemic steroids; Z85.51 Personal history of malignant neoplasm of bladder; Z79.01 Long term (current) use of anticoagulants ==

== ENCOUNTER → 2018-11-22 | Outpatient (CLI) | payer OTHER ==
[~2018-11-22] VITALS: Ht 165.1 cm; Wt 65.1 kg
[~2018-11-22] MED LIST changes: +INCRUSE ELLI62.5 MCG INH; +OXCARBAZEPINE150 MG PO
[2018-11-22 13:10] VITALS: BP 141/87
--- NOTE | 2018-11-22 13:26 | NUR ---
Pain Clinic Assessment: 1. History of Osteoarthritis: Right Upper Extremity History of Rheumatoid Arthritis: Not Applicable 2. Height: 5 ft. 5 in. 165.1 cm. Weight: 143.6 lb. oz. 65.136 kg. Patient's BMI: 23.9 3. Vital Signs: BP: 141/87 Pulse: 91 Resp: 14 Temp: 02 Sat: 98 ECG Mon: 4. Pain Intensity: 7 5. Fall Risk: Dizziness: N Needs help standing or walking: Y Fallen in the last 3 months: N Fall risk comments: 6. Patient on Blood Thinner: None 7. History of Hypertension: N 8. Opioid Therapy greater than 6 weeks: Y Opiate Contract Signed: 09/16/17 9. Risk Assessment Tool Provided: 0 LOW RISK 10. Functional Assessment Tool: 11. Recreational Drug Use: Never Drug Type: Tobacco Use: Former Smoker Tobacco Type: Amount or Packs/day: How Many Years: Alcohol Use: Yes Frequency: Daily Quant:
--- NOTE | 2018-11-23 14:02 | HPC ---
[facility] [address] [address] PAIN MANAGEMENT CONSULTATION Name: JAMESHANSEL RUBI Room #: REG Yoav Clemente#: [id number] Admission: 11/22/18 ������������������ Attend Phys: Emi Damian Discharge: ������������������ Date of : 48 Report #: [id number] THIS REPORT FOR: //name// CC: Emi Gomez DATE OF SERVICE: 11/22/2018 CHIEF COMPLAINT: Low back pain, bilateral lower extremity pain with paresthesias and ganglion cyst of his right wrist. HISTORY OF PRESENT ILLNESS: This is a very pleasant 68-year-old gentleman who returns to the pain clinic today for refill of his medications for his ongoing back and leg pain. He tells me that his pain medications are very helpful. He has over the past few months decreased his oxycodone and now currently only taking 3 tablets a day as well as his morphine twice a day. He continues to wear a nicotine patch and has for a couple of years. He would like also to let me know that he has decreased his Trileptal from 300 mg to 150 mg 3 times a day. His family member had noticed he was having some increased shaking, did read the side effect profile on this medication and decided that they would slowly trying to see if the shaking was improved with less medication. 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 The patient also tells me today that he has a ganglion cyst on his right wrist quite large in size that his primary care doctor did drain and aspirate about 2 weeks ago. The fluid returned in the cyst within 3 days, so therefore he is seeing Dr. Moore next week to have something done with his ganglion cyst. It has become quite painful when he bends his right wrist. ALLERGIES: No known drug allergies. CURRENT MEDICATIONS: Oxycodone 7.5/325 t.i.d., morphine sulfate 15 mg b.i.d., clindamycin 300 mg daily, ibuprofen 800 mg 3 times a day, Trileptal 150 mg 3 times a day, Cymbalta 30 mg daily, prednisone 20 mg daily, Symbicort and albuterol inhaler as needed. PQRS: 1. History of osteoarthritis in his upper extremities, lower back and thoracic spine. He denies any rheumatoid arthritis diagnosis. 2. Height is 5 feet 5 inches, weight is 143, BMI is 23. 3. Vital Signs: Blood pressure 141/87, pulse is 91, respirations 14, oxygen sat is 98. 4. Pain score is 7/10. 5. Fall risk: He denies any dizziness. He does need help walking. He uses a walker. He has not fallen in the last 3 months. [place] [address] PAIN MANAGEMENT CONSULTATION Name: HANSEL RAMIREZ [id number] Admission: 11/22/18 ������������������ Attend Phys: Emi Damian Discharge: ������������������ Date of : 48 Report #: [id number] blood thinners and does not take medicines for hypertension. 6. Opiate therapy is greater than 6 weeks; therefore, an opioid signed contract is on the chart. 7. Risk assessment tool is low. His functional assessment is 37/70. 8. He denies recreational drug use. He does wear a nicotine patch and occasionally drinks alcohol. PHYSICAL EXAMINATION: GENERAL: Well-developed kyphotic scoliotic 68-year-old gentleman who appears his stated age, placing his pain score at 7/10. HEENT: Normocephalic, atraumatic. Pupils equal, round and reactive to light. EXTREMITIES: No clubbing, no cyanosis. The patient does have some bilateral lower extremity edema about 2+. BACK: There is severe kyphosis and scoliotic curvature of his thoracic lumbar area. NEUROLOGIC: He walks with an antalgic gait. His strength in his lower extremities is diminished. He appears deconditioned. SKIN: On his right wrist have a ganglion cyst that is red in color, fairly large, recently drained by doctor, but quickly returned in size. ASSESSMENT: 1. Lumbar radiculopathy. 2. Spinal stenosis of the lumbar spine. 3. Kyphoscoliosis. 4. Osteoarthritis of the bilateral knees. 5. Degeneration of the lumbar spine. 6. Bilateral lower extremity cellulitis. 7. Complex medical management. 8. Chronic opioid dependency. 9. Chronic intractable pain. 10. Ganglion cyst in the right wrist. We reviewed the fact that opiate medications are being used to provide analgesia adequate to support activities of daily living, not attempting to achieve a specific pain score on the 0-10 Visual Analog Scale. The current opiate medications are providing sufficient analgesia to allow the patient to participate in activities of daily living. The patient is not exhibiting any aberrant behavior suggestive of drug diversion. The patient is not having any adverse reactions to medications. The patient is not suffering from daytime somnolence or mental acuity changes. The patient is managing opiate-induced constipation with appropriate choo-snv-tbftslg agents and dietary considerations. The patient was counseled on concern for caution with operating a motor vehicle while using opiate medications. A physical exam was performed and the patient's functional status was evaluated. All patients with back pain were advised against the bed rest greater than 4 [facility] [address] [place] [address] PAIN MANAGEMENT CONSULTATION Name: HANSEL RAMIREZ Room #: REG [facility] M.R.#: [id number] Admission: 11/22/18 ������������������ Attend Phys: Emi Damian Discharge: ������������������ Date of : 48 Report #: [id number] days and were advised to return to normal activities. Pain score assessment was noted and the treatment plan was reviewed with the patient. All current medications, both prescribed and OTC were reviewed and reconciled on the electronic medical record. Tobacco screening was accomplished and smoking cessation was advised when indicated. BMI was noted and diet/exercise modification was recommended for all patients following outside normal parameters. I reviewed with the patient today their responsibilities to safeguard prescription medications, reviewed their responsibility to utilize medications only as prescribed by the physician. They are to seek and receive pain medications only from 1 physician group ( [facility]). They are to use 1 pharmacy and keep the clinic informed if they change pharmacies. Their responsibilities include making followup visits in a timely fashion and to avoid abrupt discontinuation of medication usage. Their responsibilities further include bringing their medications (bottles from the pharmacy with residual pills) to the visit for possible confirmation of pill counts and the patient understands it is their responsibility to submit to random drug screens to ensure both that the medications prescribed are present, and that no other controlled substances are present. All prescriptions provided today were generated electronically. PLAN: 1. We discussed treatment options with the patient today. The patient has weaned himself down on some of his oxycodone, currently taking Percocet 7.5/325 three times a day as well as his morphine 15 mg b.i.d. This places him at the CDC guidelines of 66 morphine mEq a day. I told the patient that he did a good job of decreasing him and not having any withdrawal symptoms. The patient tells me that he is feeling a little more alert by decreasing his pain medicine. He has not noticed any significant change in his pain. 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 The patient also decreased his oxcarbazepine as stated earlier due to some tremors and those have improved since he has decreased this medicine. I informed him it does come in a smaller dosage, so he does not have to split his pills anymore. He is thankful for that and will agree to the smaller dosage of pills. 2. Scripts given today were MS Contin 15 mg b.i.d., #60 for today release and 4-week, oxycodone 7.5 mg t.i.d., #90 for today and 4-week release, gabapentin 800 mg t.i.d., #90 with 5 refills, oxcarbazepine 150 t.i.d. with 5 additional refills; ibuprofen 800 mg t.i.d., #90 with 5 additional refills. 3. The patient will return in 2 months' time. According to the guidelines of our clinic and based on CDC guidelines falling between 50 and 90, we see these [address] [address] PAIN MANAGEMENT CONSULTATION Name: HANSEL RAMIREZ Room #: REG ALEKSEY Clemente#: [id number] Admission: 11/22/18 ������������������ Attend Phys: Emi Damian Discharge: ������������������ Date of : 48 Report #: [id number] patients every 2 months. The patient is agreeable with this plan of care. This patient is seen in collaboration today with Dr. Arnulfo Santizo. ��������������������������������������������� <ELECTRONICALLY SIGNED> ���������������������������������������� By: Emi Damian ��������������������������������������������� 11/23/18 1402 1423 1949 Emi Damian /giselle
== END ==
LOC: PAIN 07:05
DX: G89.29 Other chronic pain (principal); M47.814 Spondylosis without myelopathy or radiculopathy, thoracic region; M47.26 Other spondylosis with radiculopathy, lumbar region; M48.061 Spinal stenosis, lumbar region without neurogenic claudication; M67.431 Ganglion, right wrist; M17.0 Bilateral primary osteoarthritis of knee; Z79.899 Other long term (current) drug therapy; Z79.891 Long term (current) use of opiate analgesic

== ENCOUNTER → 2018-11-28 | Outpatient (CLI) | payer OTHER ==
[~2018-11-28] VITALS: Ht 165.1 cm; Wt 64.9 kg
--- NOTE | 2018-11-29 11:09 | P ---
[facility] [place] [address] [address] [place] [address] PROCEDURE REPORT Name: HANSEL RAMIREZ [id number] Admission: 11/28/18 ������������������ Attend Phys: Don Aponte Discharge: ������������������ Date of : 48 Report #: [id number] THIS REPORT FOR: //name// CC: Don Gomez DO DATE OF SERVICE: 11/28/2018 PROCEDURE PERFORMED: Colonoscopy with biopsies. HISTORY OF PRESENT ILLNESS: The patient is a 68-year-old male with intermittent bright red blood per rectum he noticed with wiping. He denies any clots or large amount of bleeding. He denies any abdominal pain. No anorectal pain. No diarrhea or constipation in general. No family history of colon cancer. Plan is for colonoscopy today. The patient has a history of polyps five years ago on colonoscopy. DESCRIPTION OF PROCEDURE: The risks and benefits of the procedure were explained to the patient, those risks including but not limited to bleeding, perforation and the risk of sedation. He understood these risks and gave informed consent. Sedation was given using propofol per anesthesia. Next, a digital rectal exam was initially performed, which was normal. Next, using a standard Olympus colonoscope, the scope was placed in the patient's anus and advanced under direct vision to the cecum. The overall prep was good. The cecum and ileocecal valve were normal in appearance. The ascending, transverse and descending colon were normal. Multiple diverticula were noted in the sigmoid colon, no evidence of inflammation. A 4-mm sessile polyp was also noted in the sigmoid colon. This was removed with cold forceps. In the rectum, a total of four 3-4-mm sessile polyps noted, all removed with cold forceps. On retroflexion, medium to large size internal hemorrhoids, nonbleeding were noted. Close examination of the anal canal showed again internal hemorrhoids. No significant external hemorrhoids. No evidence of an anal fissure. Scope was then withdrawn and the procedure terminated. The patient tolerated the procedure well. IMPRESSION: 1. Sigmoid diverticulosis. 2. Colonic polyps. 3. Medium to large size internal hemorrhoids, likely source of recent bleeding. No active bleeding today. RECOMMENDATIONS: 1. Await biopsy results. 2. High-fiber diet. 3. If polyps are hyperplastic, repeat in 10 years; if adenomatous polyps, [address] [address] PROCEDURE REPORT Name: HANSEL RAMIREZ Room #: REG ALEKSEY Clemente#: [id number] Admission: 11/28/18 ������������������ Attend Phys: Don Aponte Discharge: ������������������ Date of : 48 Report #: [id number] repeat in five years. 4. We will discuss starting Analpram with the patient today. If no improvement with bleeding, would consider a colorectal surgery evaluation for possible banding. Thank you for allowing me to participate in his care. ��������������������������������������������� <ELECTRONICALLY SIGNED> ���������������������������������������� By: Don Portillo MD ��������������������������������������������� 11/29/18 1109 1025 1551 Don Portillo MD /nt
--- NOTE | 2018-11-29 15:06 | PATH ---
[facility] [place] [address] PATHOLOGY RPT PROCEDURE Name: HANSEL RAMIREZ RUBI Room #: REG ALEKSEY Clemente#: [id number] ������������������ Admission: 11/28/18 ������������������ Date of : 46 Discharge: Report #: [id number] Path Case #: [id number] [facility] Accession Number: [id number] . 01 Material submitted: . PART A: sigmoid colon - BX POLYP AT SIGMOID COLON PART B: rectum - BX POLYP AT RECTUM X 4 . 01 Clinical history: . Rectal bleeding Colon polyp, rectal polyp, diverticulosis, internal hemorrhoids . 02 Diagnosis: A. Polyp, at sigmoid colon, endoscopic biopsy: - Hyperplastic polyp. - Negative for dysplasia. . B. Polyp x 4 at rectum, endoscopic biopsy: - One fragment showing tubular adenoma; negative for high grade dysplasia. - Remainder of fragments showing hyperplastic polyp without dysplasia. (IUV/db; 11/29/2018) LBQ/11/29/2018 . 02 Electronically signed: . Kathrin Merchant MD, Pathologist NPI- [id number] . 01 Gross description: . A. The specimen is received in formalin, labeled "Hansel Ramirez, BX polyp at sigmoid colon" and consists of a fragment of pink-mann tissue measuring 0.3 x 0.2 x 0.1 cm which is entirely submitted in A1. . B. The specimen is received in formalin, labeled "Hansel Ramirez, BX polyp at rectum" and consists of 3 fragments of pink-mann tissue measuring between 0.4 x 0.3 x 0.2 cm and 0.5 x 0.3 x 0.2 cm which are entirely submitted in B1. (SDY; 11/28/2018) SYU/SYU . 02 Pathologist provided ICD-10: K63.5, D12.8 . 02 CPT . 030793, 282092 Specimen Comment: A courtesy copy of this report has been sent to Specimen Comment: [phone], . Specimen Comment: Report sent to / DR MACKEY [address] [address] PATHOLOGY RPT PROCEDURE Name: HANSEL RAMIREZ [place] Room #: REG [facility] Chyna#: [id number] ������������������ Admission: 11/28/18 ������������������ Date of : 46 Discharge: Report #: [id number] Path Case #: [id number] Performed at: 01 [facility] Phan Larson [address] [place] [address] [address], [place], [place] [id number] MD Weston Astudillo MD Phone: [phone] Performed at: [address] [id number] MD Kathrin Merchant MD Phone: [phone]
== END | disposition home or self-care (01) ==
LOC: GI 08:08
DX: D12.8 Benign neoplasm of rectum (principal); K63.5 Polyp of colon; K57.30 Diverticulosis of large intestine without perforation or abscess without bleeding; K64.8 Other hemorrhoids; Z86.010 Personal history of colon polyps; I10 Essential (primary) hypertension; J43.9 Emphysema, unspecified; E78.5 Hyperlipidemia, unspecified; Z87.891 Personal history of nicotine dependence; Z90.49 Acquired absence of other specified parts of digestive tract; Z98.890 Other specified postprocedural states; Z85.51 Personal history of malignant neoplasm of bladder; Z87.442 Personal history of urinary calculi; Z79.899 Other long term (current) drug therapy
CPT/HCPCS: 62110; 62900

== ENCOUNTER → 2019-01-24 | Outpatient (CLI) | payer OTHER ==
[~2019-01-24] VITALS: Ht 165.1 cm; Wt 68.0 kg
[~2019-01-24] MED LIST changes: +MORPHABOND ER15 MG PO; +OXYCODON-ACETA1 EAC1 PO
[2019-01-24 11:04] VITALS: BP 174/96
--- NOTE | 2019-01-24 11:06 | NUR ---
Pain Clinic Assessment: 1. History of Osteoarthritis: Right Upper Extremity History of Rheumatoid Arthritis: Not Applicable 2. Height: 5 ft. 5 in. 165.1 cm. Weight: 150.0 lb. oz. 68.040 kg. Patient's BMI: 25.0 3. Vital Signs: BP: 174/96 Pulse: 83 Resp: 18 Temp: 02 Sat: 96 ECG Mon: 4. Pain Intensity: 5 5. Fall Risk: Dizziness: N Needs help standing or walking: N Fallen in the last 3 months: N Fall risk comments: 6. Patient on Blood Thinner: None 7. History of Hypertension: N 8. Opioid Therapy greater than 6 weeks: Y Opiate Contract Signed: 09/16/17 9. Risk Assessment Tool Provided: 0 LOW RISK 10. Functional Assessment Tool: 11. Recreational Drug Use: Never Drug Type: Tobacco Use: Former Smoker Tobacco Type: Amount or Packs/day: How Many Years: Alcohol Use: Yes Frequency: Quant:
--- NOTE | 2019-01-25 07:57 | HPC ---
[facility] [address] [place] [address] PAIN MANAGEMENT CONSULTATION Name: JAMESHANSEL RUBI Room #: REG [facility] Chyna#: [id number] Admission: 01/24/19 ������������������ Attend Phys: Emi Damian Discharge: ������������������ Date of : 46 Report #: [id number] THIS REPORT FOR: //name// CC: Emi Gomez DATE OF SERVICE: 01/24/2019 CHIEF COMPLAINT: Low back pain, bilateral lower extremity pain and paresthesias. HISTORY OF PRESENT ILLNESS: This is a very pleasant 68-year-old gentleman who returns to the pain clinic today for refill of his medications for his ongoing low back pain and leg pain. He also does experience some knee pain and shoulder pain. He is rating his pain score 5/10 today, mostly an aching, burning pain, worse with walking and standing. His medications are very helpful as well as heat and ice and resting. He tells me that he did recently have carpal tunnel surgery on his right hand and also a ganglion cyst that was removed on his right wrist. He tells me that he had to take extra half of the pain pill for a couple of days, but otherwise it was not his very painful event and he is healing quite nicely. The patient does have some swollen legs today and tells me that he has been seeing a doctor regarding a skin tear on his lower extremity as well. ALLERGIES: No known drug allergies. MEDICATIONS: Motrin, Ellipta inhaler, Flomax, oxycodone 7.5/325 p.r.n., morphine sulfate 15 mg b.i.d., gabapentin 800 mg 3 times a day, Cymbalta 30 mg daily, prednisone 10 mg b.i.d., Symbicort. PATIENT'S PQRS: He has a history of osteoarthritis in his upper extremities, lower back, thoracic spine and hands. Denies any rheumatoid arthritis. Height is 5 feet 5 inches, weight is 150, BMI is 25. Vital signs: Blood pressure 174/96, pulse is 83, respirations 18, oxygen sat is 96. Pain score is 5/10. Fall risk: Denies dizziness. He does not need help with walking or standing and has not fallen in the last 3 months. The patient is not on any blood thinners. He does not take medicine for hypertension. Opioid therapy is greater than 6 weeks; therefore, an opioid signed contract is on the chart. His risk assessment tool is low. Functional assessment is 37/70. Recreational drug use: He denies. He is a former smoker and occasionally drinks alcohol. We did check the prescription monitoring system. The patient is filling appropriately for his medication and is due for those today. There is a recent drug screen on the chart. He tells me he does safeguard his medications. [address] [address] PAIN MANAGEMENT CONSULTATION Name: HANSEL RAMIREZ Room #: REG ALEKSEY Clemente#: [id number] Admission: 01/24/19 ������������������ Attend Phys: Emi Damian Discharge: ������������������ Date of : 46 Report #: [id number] PHYSICAL EXAMINATION: GENERAL: This is a well-developed kyphotic scoliotic 68-year-old gentleman who appears his stated age, placing his current pain score at 5/10. He is alert and oriented. HEENT: Normocephalic, atraumatic. Pupils equal, round and reactive to light. EXTREMITIES: Without clubbing, no cyanosis. He does have some lower extremity edema 2+ in his left lower extremity. Wearing compression stockings and has a Band-Aid over a recent skin tear on the left clay[place]. The patient also has a well healing scar on his right wrist. MUSCULOSKELETAL: He walks with a slight and antalgic gait. His lower extremity strength is diminished and he appears deconditioned. ASSESSMENT: 1. Lumbar radiculopathy. 2. Spinal stenosis of the lumbar spine. 3. Kyphoscoliosis. 4. Osteoarthritis of the bilateral knees. 5. Degeneration of the lumbar spine. 6. Bilateral lower extremity cellulitis. 7. Complex medical management under terms of written opioid agreement. 8. Chronic intractable pain. We reviewed the fact that opiate medications are being used to provide analgesia adequate to support activities of daily living, not attempting to achieve a specific pain score on the 0-10 Visual Analog Scale. The current opiate medications are providing sufficient analgesia to allow the patient to participate in activities of daily living. The patient is not exhibiting any aberrant behavior suggestive of drug diversion. The patient is not having any adverse reactions to medications. The patient is not suffering from daytime somnolence or mental acuity changes. The patient is managing opiate-induced constipation with appropriate ijiy-lob-zdtlqwt agents and dietary considerations. The patient was counseled on concern for caution with operating a motor vehicle while using opiate medications. A physical exam was performed and the patient's functional status was evaluated. All patients with back pain were advised against the bed rest greater than 4 days and were advised to return to normal activities. Pain score assessment was noted and the treatment plan was reviewed with the patient. All current medications, both prescribed and OTC were reviewed and reconciled on the electronic medical record. Tobacco screening was accomplished and smoking cessation was advised when indicated. BMI was noted and diet/exercise modification was recommended for all patients following outside normal parameters. I reviewed with the patient today their responsibilities to [address] [place] [address] PAIN MANAGEMENT CONSULTATION Name: HANSEL RAMIREZ Room #: REG [facility]..#: [id number] Admission: 01/24/19 ������������������ Attend Phys: Emi Damian Discharge: ������������������ Date of : 46 Report #: [id number] prescription medications, reviewed their responsibility to utilize medications only as prescribed by the physician. They are to seek and receive pain medications only from 1 physician group ( [facility]). They are to use 1 pharmacy and keep the clinic informed if they change pharmacies. Their responsibilities include making followup visits in a timely fashion and to avoid abrupt discontinuation of medication usage. Their responsibilities further include bringing their medications (bottles from the pharmacy with residual pills) to the visit for possible confirmation of pill counts and the patient understands it is their responsibility to submit to random drug screens to ensure both that the medications prescribed are present, and that no other controlled substances are present. All prescriptions provided today were generated electronically. PLAN: 1. We discussed treatment options with the patient today. The patient is doing quite well with his current pain regimen. Scripts given today for MS Contin 15 mg, #60 for today and 4-week release and oxycodone 7.5/325, #90 for today and 4-week release. This places him below the 90 morphine milliequivalent within the CDC guidelines. 2. We did talk for a significant amount of time about quality of life versus quantity. The patient tells me he is unable to do things that he used to enjoy mostly related to his emphysema, but also with his back pain. I encouraged him to do things in moderation and if he would like to go on a trip, he may need to use a wheelchair, so his can push him, but then they are still able to go and see things or if he would like to work in his yard do that for 5-10 minutes and then stop and take a break. When he recovers then he can do it again. He verbalizes understanding and he said he will try to do some of these things. He tells me since he is only 68 years old, he feels like he has quite a bit of life left, but is frustrated that he cannot do most because of his breathing issues. 3. The patient is seen in collaboration with Dr. Arnulfo Santizo, he did see the patient today. The patient will return in 2 months. ��������������������������������������������� <ELECTRONICALLY SIGNED> ���������������������������������������� By: Emi Damian ��������������������������������������������� 01/25/19 [id number] Emi Damian /nt
== END ==
LOC: PAIN 06:45
DX: M48.061 Spinal stenosis, lumbar region without neurogenic claudication (principal); M47.26 Other spondylosis with radiculopathy, lumbar region; M17.0 Bilateral primary osteoarthritis of knee; L03.116 Cellulitis of left lower limb; L03.115 Cellulitis of right lower limb; Z79.899 Other long term (current) drug therapy

== ENCOUNTER → 2019-02-20 | Outpatient (CLI) | payer OTHER ==
--- NOTE | 2019-02-20 15:22 | 2DMMODE ---
[facility] [place] [address] 2 D/M-MODE ECHOCARDIOGRAM Name: RAMIREZSTEPHHANSEL RUBI Room #: REG [facility]#: [id number] ������������� Admission: 02/20/19 ������������� Attend Phys: Sb Larson MD Discharge: ��� ������������� ��� Date of : 46 Date of Service: 02/20/19 1521 �� Report #: [id number] �������� ��������������������������������������������[id number] THIS REPORT FOR: //name// APPROVED REPORT Study performed: 02/20/2019 14:14:04 EXAM: Comprehensive 2D, Doppler, and color-flow Echocardiogram Patient Location: Out-Patient Status: routine BSA: 1.72 HR: 63 bpm BP: 158/68 mmHg Rhythm: NSR/Irregular Other Information Study Quality: Adequate/ patient unable to roll. Indications Dyspnea COPD. LBBB. 2D Dimensions RVDd: 37.25 mm IVSd: 16.88 (7-11mm) LVOT Diam: 20.14 (18-24mm) LVDd: 41.30 mm PWd: 16.08 (7-11mm) Ascending Ao: 32.54 (22-36mm) LVDs: 32.96 (25-40mm) Aortic Root: 36.32 mm Volumes Left Atrial Volume (Systole) Single Plane 4CH: 88.86 mL Single Plane 2CH: 100.86 mL Aortic Valve AoV Peak Osmel.: 2.49 m/s AO Peak Gr.: 24.82 mmHg LVOT Max P.83 mmHg AO Mean Gr.: 13.84 mmHg LVOT Mean P.18 mmHg AO V2 Mean: 1.72 m/s LVOT Max V: 1.10 m/s AO V2 VTI: 47.70 cm LVOT Mean V: 0.66 m/s OCTAVIO (VTI): 1.33 cm2 LVOT V1 VTI: 19.88 cm OCTAVIO Vmax: 1.41 cm2 SV (LVOT): 63.29 mL [facility] [place] [address] 2 D/M-MODE ECHOCARDIOGRAM Name: HANSEL RAMIREZ Room #: REG [facility]#: [id number] ������������� Admission: 02/20/19 ������������� Attend Phys: Sb Larson MD Discharge: ��� ������������� ��� Date of : 46 Date of Service: 02/20/19 1521 �� Report #: [id number] �������� ��������������������������������������������[id number] Mitral Valve E/A Ratio: 0.7 MV Decel. Time: 377.32 ms MV E Max Osmel.: 1.03 m/s MV A Osmel.: 1.42 m/s MV PHT: 109.42 ms IVRT: 119.95 ms Pulmonary Valve PV Peak Osmel.: 1.24 m/s PV Peak Gr.: 6.16 mmHg Pulmonary Vein P Vein S: 0.64 m/s P Vein A: 0.27 m/s P Vein D: 0.38 m/s P Vein A Dur.: 64.6 msec P Vein S/D Ratio: 1.68 Tricuspid Valve TR Peak Osmel.: 2.26 m/s RAP Estimate: 5.00 mmHg TR Peak Gr.: 20.35 mmHg PA Pressure: 25.00 mmHg Left Ventricle The left ventricle is normal size. Paradoxical septal motion consistent with conduction abnormality. Mild to moderate concentric left ventricular hypertrophy. Left ventricular systolic function is normal. LVEF is 50-55%. Mild diastolic dysfunction is present (impaired relaxation pattern). Right Ventricle The right ventricle is normal size. The right ventricular systolic function is normal. Atria Left atrium is moderately dilated. The right atrium size is normal. Aortic Valve Aortic valve is moderately calcified. Trace aortic regurgitation. There is mild valvular aortic stenosis. Calculated aortic valve area is 1.4 cm2 with maximum pressure gradient of 25 mmHg and mean pressure gradient of 14 mmHg. Mitral Valve Mitral valve leaflets are thickened. Moderate mitral annular calcification. Trace mitral regurgitation. [facility] [address] [place] [address] 2 D/M-MODE ECHOCARDIOGRAM Name: HANSEL RAMIREZ RUBI Room #: REG [facility]#: [id number] ������������� Admission: 02/20/19 ������������� Attend Phys: Sb Larson MD Discharge: ��� ������������� ��� Date of : 46 Date of Service: 02/20/19 1521 �� Report #: [id number] �������� ��������������������������������������������[id number] Tricuspid Valve The tricuspid valve is normal in structure. Mild tricuspid regurgitation. Estimated PAP is 25-30mmHg. Great Vessels IVC is normal in size and collapses >50% with inspiration. <Conclusion> The left ventricle is normal size. Mild to moderate concentric left ventricular hypertrophy. Left ventricular systolic function is normal. Mild diastolic dysfunction is present (impaired relaxation pattern). The right ventricle is normal size. Left atrium is moderately dilated. Aortic valve is moderately calcified. There is mild valvular aortic stenosis. Calculated aortic valve area is 1.4 cm2 with maximum pressure gradient of 25 mmHg and mean pressure gradient of 14 mmHg. Mitral valve leaflets are thickened. Moderate mitral annular calcification. Trace mitral regurgitation. Mild tricuspid regurgitation. Estimated PAP is 25-30mmHg. ��������������������������������������������� <ELECTRONICALLY SIGNED> ���������������������������������������� By: Sb Larson MD ��������������������������������������������� 02/20/19 1521 [id number] Sb Lasron MD /INF
== END ==
LOC: CV 12-29 14:34
DX: I08.3 Combined rheumatic disorders of mitral, aortic and tricuspid valves (principal); J44.9 Chronic obstructive pulmonary disease, unspecified; I44.7 Left bundle-branch block, unspecified

== ENCOUNTER → 2019-03-29 | Outpatient (CLI) | payer OTHER ==
[~2019-03-29] VITALS: Ht 165.1 cm; Wt 72.6 kg
[2019-03-29 11:21] VITALS: BP 153/97
--- NOTE | 2019-03-29 11:29 | NUR ---
Pain Clinic Assessment: 1. History of Osteoarthritis: Right Upper Extremity History of Rheumatoid Arthritis: Not Applicable 2. Height: 5 ft. 5 in. 165.1 cm. Weight: 160.0 lb. oz. 72.576 kg. Patient's BMI: 26.6 3. Vital Signs: BP: 153/97 Pulse: 61 Resp: 18 Temp: 02 Sat: 97 ECG Mon: 4. Pain Intensity: 7 5. Fall Risk: Dizziness: N Needs help standing or walking: N Fallen in the last 3 months: Y Fall risk comments: 6. Patient on Blood Thinner: None 7. History of Hypertension: N 8. Opioid Therapy greater than 6 weeks: Y Opiate Contract Signed: 09/16/17 9. Risk Assessment Tool Provided: 1 LOW RISK 10. Functional Assessment Tool: 11. Recreational Drug Use: Never Drug Type: Tobacco Use: Former Smoker Tobacco Type: Amount or Packs/day: How Many Years: Alcohol Use: Yes Frequency: Quant:
--- NOTE | 2019-04-04 11:15 | HPC ---
[facility] [place] [address] PAIN MANAGEMENT CONSULTATION Name: JAMESHANSEL RUBI [id number] Admission: 03/29/19 Attend Phys: Arnulfo Santizo DO Discharge: Date of : 46 Report #: [id number] THIS REPORT FOR: //name// CC: Arnulfo Chan DATE OF SERVICE: 03/29/2019 CHIEF COMPLAINT: Low back pain, bilateral lower extremity pain. HISTORY OF PRESENT ILLNESS: As you know, the patient is a 68-year-old male, returning in followup visit requesting refill on medications. He is using medications for chronic low back pain and bilateral leg pain. As you are aware, the patient has significant scoliotic and kyphosis changes within the thoracolumbar area, which is causing ongoing pain. He returns today in followup visit requesting refill of medications. He has requested an increase in opioid medications in the past, but has been advised not to make any adjustments in the therapy due to recent opioid changes. He has been "suffering" since our last visit. He returns to discuss options for treatment. He indicates pain is approximately at the level of 7/10, which is unchanged from previous evaluations. He describes the pain as chronic, aching and burning, exacerbated with walking and standing, improves with medications, rest, heat and cold compresses, massage and repositioning. ALLERGIES: No known drug allergies. CURRENT MEDICATIONS: MS Contin 15 mg twice a day, oxycodone/acetaminophen 7.5/325 t.i.d. p.r.n. pain, ibuprofen 800 mg 3 times a day. Incruse Ellipta once a day, tamsulosin 0.4 mg once a day, oxcarbazepine 150 mg t.i.d., gabapentin 800 mg t.i.d., albuterol 2 puffs q. 4 hours p.r.n., Cymbalta 30 mg once a day, prednisone 10 mg twice a day, Symbicort 160/4.5 twice a day. SOCIAL HISTORY: The patient denies current tobacco use. Denies IV or illicit drug use. Denies any chronic alcohol use. He is accompanied by his present in room today. IMAGING: No new imaging available. PQRS: The patient has osteoarthritic changes of the thoracolumbar spine and right shoulder. No rheumatoid arthritis. He is placing pain intensity at 7/10. He is a fall risk and has had a fall in the last 3 months. He does use ambulatory devices. He is not on blood thinners. He reports he is not treated for hypertension. He is on opioids, but reportedly has a low opioid addiction potential, placing pain impact score 41/70, moderate interference of daily activity secondary to pain. [address] [address] PAIN MANAGEMENT CONSULTATION Name: HANSEL RAMIREZ Room #: REG [facility] Chyna#: [id number] Admission: 03/29/19 Attend Phys: Arnulfo Santizo DO Discharge: Date of : 46 Report #: [id number] PHYSICAL EXAMINATION: VITAL SIGNS: Blood pressure 153/97, pulse 61, respiratory rate 18 and unlabored. The patient is 97% on room air. Height 5 feet 5 inches tall, weight 160 pounds and BMI calculated 26.6. GENERAL: Well-developed, well-nourished, well-hydrated, kyphotic and scoliotic 68-year-old male appearing stated age, pain is rated today at around 7/10. HEENT: Normocephalic, atraumatic. Pupils equal, round, reactive to light. EXTREMITIES: Show no clubbing, no cyanosis. There is 2+ nonpitting lower extremity edema with compression stockings noted over bilateral legs. MUSCULOSKELETAL: The patient has antalgic gait. His stance is forward flexed, loss of lordotic curvature, scoliotic curvature and kyphotic curvature noted. ASSESSMENT: 1. Chronic lumbar radiculopathy. 2. Spinal stenosis of lumbar spine. 3. Kyphoscoliosis. 4. Osteoarthritis of bilateral knees. 5. Degenerative changes of lumbar spine. 6. Bilateral lower extremity pain and swelling. 7. Complex medication management, utilizing opioid medications. 8. Chronic intractable pain. PLAN: 1. The patient has returned today in followup visit where they had a very long discussion with the patient about opioid medications. At present, he is at a higher dose of opioid medication based on the CDCs recommended dosing on a daily basis. He is requesting a possible increase. I have advised the patient that any increase will be met with need for further and more frequent followups. The CDC recommends that a higher dose opioid medications. The patient should be seen on a monthly basis. I have advised the patient if we make any alteration in his medication, this would have to be the case as he would now be placed in a high risk category with opioid use. The patient states he understands, but can no longer take the pain further. He is requesting adjustments in medications. We reviewed the fact that opiate medications are being used to provide analgesia adequate to support activities of daily living, not attempting to achieve a specific pain score on the 0-10 Visual Analog Scale. The current opiate medications are providing sufficient analgesia to allow the patient to participate in activities of daily living. The patient is not exhibiting any aberrant behavior suggestive of drug diversion. The patient is not having any adverse reactions to medications. The patient is not suffering from daytime somnolence or mental acuity changes. The patient is managing opiate-induced constipation with appropriate nrgp-opo-ixqlpal agents and dietary considerations. The patient was counseled on concern for caution with operating a motor vehicle while using opiate medications. [address] [address] PAIN MANAGEMENT CONSULTATION Name: RAMIREZHANSEL Room #: REG [facility] Clemente#: [id number] Admission: 03/29/19 Attend Phys: Arnulfo Santizo DO Discharge: Date of : 48 Report #: [id number] A physical exam was performed and the patient's functional status was evaluated. All patients with back pain were advised against the bed rest greater than 4 days and were advised to return to normal activities. Pain score assessment was noted and the treatment plan was reviewed with the patient. All current medications, both prescribed and OTC were reviewed and reconciled on the electronic medical record. Tobacco screening was accomplished and smoking cessation was advised when indicated. BMI was noted and diet/exercise modification was recommended for all patients following outside normal parameters. I reviewed with the patient today their responsibilities to safeguard prescription medications, reviewed their responsibility to utilize medications only as prescribed by the physician. They are to seek and receive pain medications only from 1 physician group ([facility]). They are to use 1 pharmacy and keep the clinic informed if they change pharmacies. Their responsibilities include making followup visits in a timely fashion and to avoid abrupt discontinuation of medication usage. Their responsibilities further include bringing their medications (bottles from the pharmacy with residual pills) to the visit for possible confirmation of pill counts and the patient understands it is their responsibility to submit to random drug screens to ensure both that the medications prescribed are present, and that no other controlled substances are present. All prescriptions provided today were generated electronically. 2. The patient was provided prescription of MS Contin 15 mg dose 1 tab p.o. b.i.d. I have given the patient #60 tablets with no refills. 3. The patient was provided prescription of oxycodone 7.5/325 one tab p.o. q. 6 hours p.r.n. for pain. We have increased by 1 tablet per day p.r.n., he was given #120, no refills. 4. We will see the patient back in followup visit in 1 month where we will discuss efficacy of medication management. <ELECTRONICALLY SIGNED> By: Arnulfo Santizo DO 04/04/19 1115 [id number] Arnulfo Santizo DO /nt
== END ==
LOC: PAIN 08:12
DX: M47.26 Other spondylosis with radiculopathy, lumbar region (principal); M48.061 Spinal stenosis, lumbar region without neurogenic claudication; M17.0 Bilateral primary osteoarthritis of knee; G89.4 Chronic pain syndrome; Z79.899 Other long term (current) drug therapy; Z79.891 Long term (current) use of opiate analgesic

== ENCOUNTER → 2019-04-26 | Outpatient (CLI) | payer OTHER ==
[~2019-04-26] VITALS: Ht 165.1 cm; Wt 76.4 kg
[2019-04-26 11:15] VITALS: BP 153/96
--- NOTE | 2019-04-26 11:23 | NUR ---
Pain Clinic Assessment: 1. History of Osteoarthritis: Right Upper Extremity History of Rheumatoid Arthritis: Not Applicable 2. Height: 5 ft. 5 in. 165.1 cm. Weight: 168.4 lb. oz. 76.386 kg. Patient's BMI: 28.0 3. Vital Signs: BP: 153/96 Pulse: 83 Resp: 14 Temp: 02 Sat: 96 ECG Mon: 4. Pain Intensity: 3-4 5. Fall Risk: Dizziness: N Needs help standing or walking: Y Fallen in the last 3 months: N Fall risk comments: 6. Patient on Blood Thinner: None 7. History of Hypertension: N 8. Opioid Therapy greater than 6 weeks: Y Opiate Contract Signed: 09/16/17 9. Risk Assessment Tool Provided: 1 LOW RISK 10. Functional Assessment Tool: 11. Recreational Drug Use: Never Drug Type: Tobacco Use: Former Smoker Tobacco Type: Amount or Packs/day: How Many Years: Alcohol Use: Yes Frequency: Quant:
--- NOTE | 2019-05-09 07:46 | HPC ---
[facility] [address] [place] [address] PAIN MANAGEMENT CONSULTATION Name: HANSEL RAMIREZ RUBI Room #: REG [facility]..#: [id number] Admission: 04/26/19 Attend Phys: Arnulfo Santizo DO Discharge: Date of : 46 Report #: [id number] THIS REPORT FOR: //name// CC: Arnulfo Chan DATE OF SERVICE: 04/26/2019 REFERRING PHYSICIAN: Arnulfo Gomez DO CHIEF COMPLAINT: Low back pain, bilateral lower extremity pain. HISTORY OF PRESENT ILLNESS: As you know, the patient is a 68-year-old male, returning in followup visit for medication management. He states medications are working well for pain control despite the fact that he is getting pain levels of 3-4/10 today. We escalated his dose of medication at last visit, and he did notice improvement from a 7/10 to 3-4/10. He wishes to continue medication at this level. He does understand that opioid medications will likely be discontinued in the very near future and we will have to wean off this therapy, but he is finding improvement in pain at this point with the medication. He denies side effects of sleepiness, disorientation, confusion and mental slowing. He requests refills to be provided today. ALLERGIES: No known drug allergies. CURRENT MEDICATIONS: MS Contin 15 mg twice a day, Percocet 7.5/325 four times a day, ibuprofen 800 mg 3 times a day, Incruse Ellipta once a day, tamsulosin 0.4 mg once a day, oxcarbazepine 150 mg 3 times a day, gabapentin 800 mg 3 times a day, albuterol 2 puffs q.4 hours p.r.n., Cymbalta 30 mg once a day, prednisone 10 mg twice a day and Symbicort 160/4.5 b.i.d. SOCIAL HISTORY: The patient denies current tobacco use. Has an extensive history of tobacco use. Denies IV or illicit drug use. Denies any chronic alcohol use. He is accompanied by his present in room today. IMAGING: No new imaging available. PQRS: The patient has arthritic changes of the thoracolumbar spine, right shoulder, bilateral hips and knees. No rheumatoid arthritis. He is placing pain today at around 3-10. He is a fall risk, but has not had a fall in last 3 months. He does use ambulatory devices. He is not on blood thinners, not treated for hypertension. He is on chronic opioids. He has a reported low opioid addiction potential based on our assessment tool. Pain impact score 41/70 indicating moderate interference of [place] [address] PAIN MANAGEMENT CONSULTATION Name: HANSEL RAMIREZ Room #: REG [facility] Clemente#: [id number] Admission: 04/26/19 Attend Phys: Arnulfo Santizo DO Discharge: Date of : 46 Report #: [id number] PHYSICAL EXAMINATION: VITAL SIGNS: Blood pressure 153/96, pulse 83, respiratory rate 14 and unlabored. The patient is 96% on room air. Height 5 feet 5 inches tall, weight 168.4 pounds, BMI calculated 28. GENERAL: Well-developed, well-nourished, well-hydrated kyphotic and scoliotic 68-year-old male, appears stated age, placing current pain score 3-4/10. HEENT: Normocephalic, atraumatic. Pupils equal, round, reactive to light. EXTREMITIES: Show no clubbing, no cyanosis. There is 2+ nonpitting lower extremity edema with compression stockings over the bilateral lower extremities. MUSCULOSKELETAL: Gait antalgic. Stance is forward flex lumbar spine, loss of lordotic curvature. There is noted scoliosis and kyphosis that is severe in nature. ASSESSMENT: 1. Chronic radiculopathy of the lumbar spine. 2. Spinal stenosis of the lumbar spine. 3. Kyphoscoliosis. 4. Osteoarthritis of bilateral knees. 5. Degeneration of lumbar spine. 6. Bilateral lower extremity pain with swelling. 7. Medication management with complicated use of opioid medications. 8. Chronic intractable pain. PLAN: 1. The patient returns today in followup visit indicating good efficacy with the medications. He states the escalating dose of Percocet was met with increased pain benefit, now reducing pain from 7/10 to 3-4/10. He wishes to continue the medication as directed at present. He does understand that ultimately opioid medications will be discontinued, and he will have to come off the medications in the near future but wishes to remain on medications as long as he can to maintain analgesic benefit. We have agreed to provide the patient with refill of medications today. He could have 2 months' worth of medication based on his morphine equivalence. Current morphine equivalents, 90 morphine equivalents per day. This is the maximum the [facility] will allow. We reviewed the fact that opiate medications are being used to provide analgesia adequate to support activities of daily living, not attempting to achieve a specific pain score on the 0-10 Visual Analog Scale. The current opiate medications are providing sufficient analgesia to allow the patient to participate in activities of daily living. The patient is not exhibiting any aberrant behavior suggestive of drug diversion. The patient is not having any adverse reactions to medications. The patient is not suffering from daytime somnolence or mental acuity changes. The patient is managing opiate-induced constipation with appropriate hrmp-vbh-gwoevwr agents and dietary considerations. The patient was counseled on concern for caution with operating a motor vehicle while using opiate medications. [facility] [address] [place] [address] PAIN MANAGEMENT CONSULTATION Name: HANSEL RAMIREZ Room #: REG [facility].#: [id number] Admission: 04/26/19 Attend Phys: Arnulfo Santizo DO Discharge: Date of : 46 Report #: [id number] A physical exam was performed and the patient's functional status was evaluated. All patients with back pain were advised against the bed rest greater than 4 days and were advised to return to normal activities. Pain score assessment was noted and the treatment plan was reviewed with the patient. All current medications, both prescribed and OTC were reviewed and reconciled on the electronic medical record. Tobacco screening was accomplished and smoking cessation was advised when indicated. BMI was noted and diet/exercise modification was recommended for all patients following outside normal parameters. I reviewed with the patient today their responsibilities to safeguard prescription medications, reviewed their responsibility to utilize medications only as prescribed by the physician. They are to seek and receive pain medications only from 1 physician group ( [facility]). They are to use 1 pharmacy and keep the clinic informed if they change pharmacies. Their responsibilities include making followup visits in a timely fashion and to avoid abrupt discontinuation of medication usage. Their responsibilities further include bringing their medications (bottles from the pharmacy with residual pills) to the visit for possible confirmation of pill counts and the patient understands it is their responsibility to submit to random drug screens to ensure both that the medications prescribed are present, and that no other controlled substances are present. All prescriptions provided today were generated electronically. 2. The patient was provided prescription of MS Contin 15 mg 1 tablet p.o. b.i.d. I have given the patient #60 tablets with 1 refill in 4 weeks. 3. The patient was provided prescription of Percocet 7.5/325 one tablet p.o. q. 6 hours p.r.n. for pain. I have given the patient #120, releasing today and 4 weeks from today, 2 months' worth of medication. 4. We will see the patient back in followup visit in 2 months for medication management. <ELECTRONICALLY SIGNED> By: Arnulfo Santizo DO 05/09/19 0746 [id number] Arnulfo Santizo DO /nt
== END ==
LOC: PAIN 07:06
DX: M48.062 Spinal stenosis, lumbar region with neurogenic claudication (principal); M17.0 Bilateral primary osteoarthritis of knee; M54.16 Radiculopathy, lumbar region; M41.86 Other forms of scoliosis, lumbar region; M51.36 Other intervertebral disc degeneration, lumbar region; G89.4 Chronic pain syndrome

== ENCOUNTER → 2019-06-21 | Outpatient (CLI) | payer OTHER ==
[~2019-06-21] VITALS: Ht 165.1 cm; Wt 73.5 kg
[2019-06-21 09:44] VITALS: BP 161/97
--- NOTE | 2019-06-21 10:01 | NUR ---
Pain Clinic Assessment: 1. History of Osteoarthritis: Right Upper Extremity History of Rheumatoid Arthritis: Not Applicable 2. Height: 5 ft. 5 in. 165.1 cm. Weight: 162.0 lb. oz. 73.483 kg. Patient's BMI: 27.0 3. Vital Signs: BP: 161/97 Pulse: 86 Resp: 14 Temp: 02 Sat: 95 ECG Mon: 4. Pain Intensity: 5 5. Fall Risk: Dizziness: Y Needs help standing or walking: Y Fallen in the last 3 months: N Fall risk comments: 6. Patient on Blood Thinner: None 7. History of Hypertension: N 8. Opioid Therapy greater than 6 weeks: Y Opiate Contract Signed: 09/16/17 9. Risk Assessment Tool Provided: 1 LOW RISK 10. Functional Assessment Tool: 11. Recreational Drug Use: Never Drug Type: Tobacco Use: Former Smoker Tobacco Type: Amount or Packs/day: How Many Years: Alcohol Use: Yes Frequency: Daily Quant: 1
--- NOTE | 2019-06-22 09:58 | HPC ---
[facility] [address] [place] [address] PAIN MANAGEMENT CONSULTATION Name: RAMIREZHANSEL RUBI Room #: REG [facility] Chyna#: [id number] Admission: 06/21/19 Attend Phys: Emi Damian Discharge: Date of : 46 Report #: [id number] THIS REPORT FOR: //name// CC: Emi Gomez DATE OF SERVICE: 06/21/2019 CHIEF COMPLAINT: Low back pain, bilateral lower extremity pain. HISTORY OF PRESENT ILLNESS: This is a very pleasant 69-year-old gentleman who returns to the pain clinic today for his refill of medications for his multiple pain generators including his back, shoulders, bilateral knees and legs. He rates his pain score 5/10 currently, but explains that it can be in 8-9 later in the day when he tries to be active. He says that his pain does increase. 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 It does give him satisfaction he tells me and fulfillment in his life since the arthritis has made it so he is not able to do a lot of things; he tries to do his art work daily. He also tries to keep busy with errands and housework, but does have difficulty breathing after a while as well as prolonged standing and does need to take breaks. He feels that the medication is beneficial. He does have some problems with constipation, but uses several hfwe-nop-xhatsyw and fruits and vegetables to help relieve this. He denies any problems with daytime sleepiness or confusion with his medications. ALLERGIES: No known drug allergies. CURRENT LIST OF MEDICATIONS: Oxycodone 7.5/325 up to 4 times a day p.r.n., morphine sulfate 15 mg b.i.d., ibuprofen 800 mg b.i.d., Incruse Ellipta inhaler daily, Flomax daily, oxcarbazepine 150 mg t.i.d., gabapentin 800 mg t.i.d., Cymbalta 30 mg daily, prednisone 10 mg b.i.d., Symbicort and Ventolin inhaler as needed. PQRS: 1. He does have osteoarthritis in multiple joints as well as in his bilateral shoulders, hands, knees and hips. He denies any rheumatoid arthritis. 2. Height is 5 feet 5 inches, weight is 162, BMI is 27. 3. Vital signs 161/97, pulse is 86, respirations 14, oxygen sat is 95. 4. Pain score is 5/10. 5. Complains of dizziness, does need to use a cane with walker with ambulation. He has not fallen in the last 3 months. 6. The patient is not on any blood thinners. He does take medicines for hypertension. 7. Opioid therapy is greater than 6 weeks; therefore, an opioid signed contract is on the chart. Risk assessment tool is low. Functional assessment is 41/70. 8. Recreational drug use, he denies. He is [place] [address] PAIN MANAGEMENT CONSULTATION Name: HANSEL RAMIREZ Room #: REG [facility] Clemente#: [id number] Admission: 06/21/19 Attend Phys: Emi Damian Discharge: Date of : 46 Report #: [id number] drinks alcohol. According to the prescription monitoring system, the patient is filling appropriately in a timely fashion. There is a recent drug screen on the chart that is appropriate as well. He does keep his medications safe guarded all times. PHYSICAL EXAMINATION: GENERAL: This is a well-developed, well-nourished kyphotic and scoliotic 68-year-old gentleman who appears his stated age, placing his current pain score 5/10 today. HEENT: Normocephalic, atraumatic. Pupils equal, round and reactive to light. Mucous membranes are moist. EXTREMITIES: He has 1+ edema in his hands bilaterally and 2+ edema in his lower extremities. He is wearing compression stockings. His hands are also reddened bilaterally today. He has an antalgic gait. His stance is bent forward due to his loss of lordotic curvature and his scoliosis is severe in nature. His lower extremity strength judged to be 4/5 and is deconditioned. ASSESSMENT: 1. Chronic radiculopathy of the lumbar spine. 2. Spinal stenosis of lumbar spine. 3. Kyphoscoliosis. 4. Osteoarthritis, multiple pain generators, multiple joints. 5. Degeneration of the lumbar spine. 6. Lower extremity edema. 7. Chronic intractable pain. 8. Management of medications under terms of written opioid agreement. We reviewed the fact that opiate medications are being used to provide analgesia adequate to support activities of daily living, not attempting to achieve a specific pain score on the 0-10 Visual Analog Scale. The current opiate medications are providing sufficient analgesia to allow the patient to participate in activities of daily living. The patient is not exhibiting any aberrant behavior suggestive of drug diversion. The patient is not having any adverse reactions to medications. The patient is not suffering from daytime somnolence or mental acuity changes. The patient is managing opiate-induced constipation with appropriate qabc-cso-zhjcnzw agents and dietary considerations. The patient was counseled on concern for caution with operating a motor vehicle while using opiate medications. PLAN: 1. We discussed treatment options with the patient today. The patient finds his medication very beneficial and has seen more benefit in his current regimen than in the past. He would like refills of his morphine ER 15 mg b.i.d., #60 written for today and 4 weeks as well as oxycodone 7.5/325, #120 for today and [facility] [address] [place] [address] PAIN MANAGEMENT CONSULTATION Name: HANSEL RAMIREZ Room #: REG ALE[facility] Clemente#: [id number] Admission: 06/21/19 Attend Phys: Emi Damian Discharge: Date of : 46 Report #: [id number] 4-week. These were sent electronically by Dr. Arnulfo Santizo. 2. I did refill his gabapentin 800 mg, #90 for 5 refills, oxcarbazepine 150 t.i.d., #90 with 5 refills and ibuprofen 800 mg, #90 with 5 refills. These were also sent electronically. 3. The patient will return in followup for 3 months. The patient is seen in collaboration today with Dr. Arnulfo Santizo. <ELECTRONICALLY SIGNED> By: Emi Damian 06/22/19 0958 [id number] Emi Damian /nt
== END ==
LOC: PAIN 07:03
DX: M48.061 Spinal stenosis, lumbar region without neurogenic claudication (principal); M19.90 Unspecified osteoarthritis, unspecified site; M51.16 Intervertebral disc disorders with radiculopathy, lumbar region; R60.0 Localized edema; Z79.891 Long term (current) use of opiate analgesic

== ENCOUNTER → 2019-08-16 | Outpatient (CLI) | payer OTHER ==
[~2019-08-16] VITALS: Ht 165.1 cm; Wt 74.2 kg
[~2019-08-16] MED LIST changes: +PEPCID20 MG PO; +VOLTAREN GEL 1100 G2 TOP
[2019-08-16 13:43] VITALS: BP 134/75
--- NOTE | 2019-08-16 13:57 | NUR ---
Pain Clinic Assessment: 1. History of Osteoarthritis: Right Upper Extremity BACK History of Rheumatoid Arthritis: Not Applicable 2. Height: 5 ft. 5 in. 165.1 cm. Weight: 163.6 lb. oz. 74.208 kg. Patient's BMI: 27.2 3. Vital Signs: BP: 134/75 Pulse: 81 Resp: 14 Temp: 02 Sat: 95 ECG Mon: 4. Pain Intensity: 3 5. Fall Risk: Dizziness: Y Needs help standing or walking: Y Fallen in the last 3 months: N Fall risk comments: 6. Patient on Blood Thinner: None 7. History of Hypertension: N 8. Opioid Therapy greater than 6 weeks: Y Opiate Contract Signed: 09/16/17 9. Risk Assessment Tool Provided: 1 LOW RISK 10. Functional Assessment Tool: 11. Recreational Drug Use: Never Drug Type: Tobacco Use: Former Smoker Tobacco Type: Amount or Packs/day: How Many Years: Alcohol Use: Yes Frequency: Daily Quant: 1
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
== END ==
LOC: PAIN 06:58 → RAD 06:58 → PAIN 13:15
DX: S42.301A Unspecified fracture of shaft of humerus, right arm, initial encounter for closed fracture (principal); M47.26 Other spondylosis with radiculopathy, lumbar region; M41.86 Other forms of scoliosis, lumbar region; M48.061 Spinal stenosis, lumbar region without neurogenic claudication; M19.021 Primary osteoarthritis, right elbow; M19.011 Primary osteoarthritis, right shoulder; G89.4 Chronic pain syndrome; Z79.891 Long term (current) use of opiate analgesic; X58.XXXA Exposure to other specified factors, initial encounter; Y93.89 Activity, other specified; Y92.89 Other specified places as the place of occurrence of the external cause; Y99.8 Other external cause status

== ENCOUNTER 2019-08-29 18:08 | Inpatient (IN) | payer OTHER ==
[~2019-08-29] VITALS: Ht 165.1 cm; Wt 62.3 kg
[2019-08-29 18:09] VITALS: BP 157/109
[2019-08-29 18:25] LABS: HEMATOCRIT 41.2 % (42.0-52.0); HEMOGLOBIN 13.2 gm/dL (14.0-18.0); MCH 28.1 pg (26.0-34.0); PLATELET COUNT 354 thou/uL (150-400); RBC 4.68 mil/uL (4.50-6.00); RDW 16.1 % (10.5-14.5); WBC 23.2 thou/uL (4.0-11.0)
[2019-08-29 18:44] LABS: CALCIUM 9.8 mg/dL (8.5-10.1); CREATININE 0.9 mg/dL (0.7-1.3); POTASSIUM 4.9 mmol/L (3.5-5.1)
[2019-08-29 18:53] LABS: ANISOCYTOSIS 1+
[2019-08-29 18:55] LABS: ALBUMIN 4.2 g/dL (3.4-5.0); DIRECT BILIRUBIN 0.1 mg/dL (<0.1-0.2); TOTAL BILIRUBIN 0.5 mg/dL (<0.1-1.0); TOTAL PROTEIN 7.7 g/dL (6.4-8.2); TROPONIN-I 0.11 ng/mL (<0.06)
[2019-08-29 19:04] LABS: BE(vivo) 1.8 mmol/L (-2 to +3); HCO3 27.2 mmol/L (22.0-26.0); PCO2 45.6 mmHg (35.0-45.0); PO2 345.3 mmHg (80.0-100.0); pH 7.393 (7.360-7.450); sO2 99.8 % (92.0-98.0)
[2019-08-29 23:39] LABS: URINE BILIRUBIN 1+ (Negative); URINE BLOOD 1+ (Negative); URINE CLARITY SL CLOUDY; URINE COLOR YELLOW; URINE GLUCOSE-RANDOM* NEGATIVE (Negative); URINE KETONES TRACE (Negative); URINE LEUKOCYTES-REFLEX TRACE (Negative); URINE NITRITE-REFLEX NEGATIVE (Negative); URINE PROTEIN (DIPSTICK) TRACE (Negative); URINE SPECIFIC GRAVITY 1.025 (1.005-1.035); URINE UROBILINOGEN 0.2 E.U./dl (0.2-1.0)
[2019-08-29 23:53] LABS: BACTERIA-REFLEX 1-9 Few /HPF (None Seen); CELLULAR CASTS 0-3 Few /LPF (None Seen); CRYSTALS None Seen /LPF (None Seen); HYALINE CASTS 4-10 Moderate /LPF (None Seen); MUCUS 4-6 Moderate strn/LPF (None Seen); SQUAMOUS 4-10 Moderate /LPF (0-3); URINE RBC 3-10 Few /HPF (0-2); URINE WBC-REFLEX 0-5 Rare /HPF (0-5)
[2019-08-30] VITALS (84 sets, daily range): BP systolic 70–172; BP diastolic 36–114
[2019-08-30 01:16] LABS: CALCIUM 8.4 mg/dL (8.5-10.1); CREATININE 0.9 mg/dL (0.7-1.3); POTASSIUM 4.2 mmol/L (3.5-5.1)
[2019-08-30 01:19] LABS: APTT 27.8 Seconds (24.5-32.8); FIBRINOGEN 288.6 mg/dL (210-360); INR 1.1; PROTIME 10.8 Seconds (9.3-11.4)
--- NOTE | 2019-08-30 05:00 | NUR ---
PT ARRIVED IN ICU FROM ER AT 0125. PT PLACED ON BIPAP UPON ARRIVAL. CONSULTS CALLED. SPOKE WITH DR. JEONG AND DR. GRANADOS; ORDERS RECEIVED. ECG STRIP SHOWN TO FILTER WORKER WITH CONCERN FOR ST ELEVATION; PT HAS LT BUNDLE BRANCH BLOCK. TROPONIN TRENDING UP; CARDIOLOGY CONSULTED. WILL CONTINUE TO MONITOR.
[2019-08-30 05:13] LABS: BE(vivo) -3.4 mmol/L (-2 to +3); PO2 133.7 mmHg (80.0-100.0); sO2 98.2 % (92.0-98.0)
[2019-08-30 05:14] LABS: pH 7.266 (7.360-7.450)
[2019-08-30 05:30] LABS: HEMATOCRIT 34.4 % (42.0-52.0); MCH 28.2 pg (26.0-34.0); MCHC 31.4 g/dL (28.0-37.0); MCV 89.8 fL (80.0-100.0); PLATELET COUNT 279 thou/uL (150-400); RBC 3.83 mil/uL (4.50-6.00); RDW 16.4 % (10.5-14.5); WBC 30.2 thou/uL (4.0-11.0)
[2019-08-30 05:38] LABS: HEMOGLOBIN 10.8 gm/dL (14.0-18.0)
[2019-08-30 06:07] LABS: CALCIUM 7.7 mg/dL (8.5-10.1); CREATININE 0.8 mg/dL (0.7-1.3); POTASSIUM 3.9 mmol/L (3.5-5.1)
[2019-08-30 06:20] LABS: TROPONIN-I 0.82 ng/mL (<0.06)
[2019-08-30 08:50] LABS: ABSOLUTE NEUTROPHILS 28.4 thou/uL (1.4-8.2); PLATELET ESTIMATE NORMAL
--- NOTE | 2019-08-30 10:53 | 2DMMODE ---
[facility] [place] [address] 2 D/M-MODE ECHOCARDIOGRAM Name: JAMESHANSEL RAY Room #: 240-P ADM IN M.R.#: [id number] Admission: 08/29/19 Attend Phys: Ronni Albarado MD Discharge: Date of : 46 Report #: [id number] THIS REPORT FOR: //name// APPROVED REPORT Study performed: 08/30/2019 08:38:35 EXAM: Comprehensive 2D, Doppler, and color-flow Echocardiogram Patient Location: ICU Room #: 240 Status: routine BSA: 1.79 HR: 94 bpm BP: 106/55 mmHg Rhythm: NSR Other Information Study Quality: Adequate Indications COPD Sepsis Dyspnea Elevated Troponin 2D Dimensions RVDd: 41.80 mm IVSd: 19.45 (7-11mm) LVOT Diam: 20.54 (18-24mm) LVDd: 34.49 mm PWd: 15.64 (7-11mm) Ascending Ao: 28.51 (22-36mm) LVDs: 25.90 (25-40mm) Aortic Root: 29.75 mm IVC: 28.00 mm Volumes Left Atrial Volume (Systole) Single Plane 4CH: 69.88 mL Single Plane 2CH: 81.93 mL LA ESV Index: 47.00 mL/m2 Aortic Valve AoV Peak Osmel.: 2.42 m/s AO Peak Gr.: 23.49 mmHg LVOT Max P.02 mmHg AO Mean Gr.: 14.08 mmHg LVOT Mean P.90 mmHg AO V2 Mean: 1.74 m/s LVOT Max V: 1.12 m/s AO V2 VTI: 49.78 cm LVOT Mean V: 0.79 m/s OCTAVIO (VTI): 1.45 cm2 LVOT V1 VTI: 21.86 cm [facility] [place] [place] [address] 2 D/M-MODE ECHOCARDIOGRAM Name: HANSEL RAMIREZ LAKELAND [facility] .R.#: [id number] Admission: 08/29/19 Attend Phys: Ronni Albarado MD Discharge: Date of : 46 Report #: [id number] OCTAVIO Vmax: 1.53 cm2 SV (LVOT): 72.43 mL Mitral Valve MV Peak Gr.: 15.13 mmHg MV Mean Gr.: 4.93 mmHg E/A Ratio: 0.8 MV Decel. Time: 233.95 ms MV E Max Osmel.: 1.34 m/s MV A Osmel.: 1.67 m/s MV Max Osmel.: 1.94 m/s MV Mean Osmel.: 0.98 m/s MV VTI: 253.41 mm MVA VTI: 285.81 mm2 MV PHT: 67.85 ms MVA (PHT): 6.10 cm2 IVRT: 117.65 ms Pulmonary Valve PV Peak Osmel.: 1.12 m/s PV Peak Gr.: 5.03 mmHg Pulmonary Vein P Vein S: 0.55 m/s P Vein A: 0.30 m/s P Vein D: 0.50 m/s P Vein A Dur.: 79.6 msec P Vein S/D Ratio: 1.10 Tricuspid Valve TR Peak Osmel.: 3.04 m/s TR Peak Gr.: 36.96 mmHg PA Pressure: 47.00 mmHg Left Ventricle The left ventricle is normal size. There is normal LV segmental wall motion. Moderate concentric left ventricular hypertrophy. Left ventricular systolic function is borderline. LVEF is 50%. Discordant septal motion, possibly from a left bundle branch block This study is not technically sufficient to allow evaluation of the LV diastolic function. Right Ventricle The right ventricle is normal size. The right ventricular systolic function is normal. Atria Left atrium is dilated. Right atrium is dilated. Aortic Valve [place] [id number] 2 D/M-MODE ECHOCARDIOGRAM Name: RAMIREZHANSEL LAKELAND Room #: [address] [place] [address] IN .R.#: [id number] Admission: 08/29/19 Attend Phys: Ronni Albarado MD Discharge: Date of : 46 Report #: [id number] Aortic valve is calcified. No aortic regurgitation is present. Mild aortic stenosis. Calculated aortic valve area is 1.5 cm2 with maximum pressure gradient of 24 mmHg and mean pressure gradient of 14 mmHg. Mitral Valve Moderate mitral annular calcification. Mild mitral regurgitation. Mild mitral stenosis. (Peak gradient 15 mm, mean gradient 5 mm) Tricuspid Valve The tricuspid valve is normal in structure. There is mild tricuspid regurgitation. Estimated PAP 45 mmHg. There is moderate pulmonary hypertension. Pulmonic Valve The pulmonary valve is normal in structure. There is no pulmonic valvular regurgitation. Great Vessels The aortic root is normal in size. IVC is dilated and collapses <50% with inspiration. Pericardium There is no pericardial effusion. <Conclusion> Left ventricular systolic function is borderline. LVEF is 50%. Discordant septal motion, possibly from a left bundle branch block There is normal LV segmental wall motion. Both atria are dilated. Aortic valve is calcified; mild stenosis and no insufficiency. Calculated aortic valve area is 1.5 cm2 with maximum pressure gradient of 24 mmHg and mean pressure gradient of 14 mmHg. Moderate mitral annular calcification. Mild mitral regurgitation. Mild mitral stenosis. (Peak gradient 15 mm, mean gradient 5 mm) There is mild tricuspid regurgitation. Estimated pulmonary artery pressure of 45 mmHg. There is no pericardial effusion. <ELECTRONICALLY SIGNED> By: Terrell Ram MD, FACC 08/30/191051 51 51 Terrell Ram MD, FACC /INF
--- NOTE | 2019-08-30 11:50 | NUR ---
NOTIFIED TO PLACE A PICC FOR A PATIENT ADMITTING WITH SEPSIS. ORDER AND CONSENT NOTED. THE RIGHT UPPER ARM BASILIC WAS WIDLEY PATENT. A #4F DOUBLE LUMEN POWER PICC WAS PLACED PER HOSPITAL POLICY AFTER A BEDSIDE TIMEOUT WAS COMPLETED. PICC WAS TRIMMED TO 44CM AND ADVANCED WITHOUT DIFFICULTY. A STAT CHEST XRAY WAS ORDERED FOR CONFIRMATION. LINE NOTED IN CORRECT POSITION BY RADIOLOGIST. LINE RELEASED FOR USE
[2019-08-30 12:57] LABS: URINE BILIRUBIN NEGATIVE (Negative); URINE BLOOD 3+ (Negative); URINE CLARITY CLOUDY; URINE COLOR YELLOW; URINE GLUCOSE-RANDOM* NEGATIVE (Negative); URINE KETONES NEGATIVE (Negative); URINE LEUKOCYTES TRACE (Negative); URINE NITRITE NEGATIVE (Negative); URINE PROTEIN (DIPSTICK) 1+ (Negative); URINE SPECIFIC GRAVITY >= 1.030 (1.005-1.035); URINE UROBILINOGEN 0.2 E.U./dl (0.2-1.0)
[2019-08-30 13:06] LABS: AMP/METHAMP Negative (Negative); BARBITURATES Negative (Negative); BENZODIAZEPINES Negative (Negative); COCAINE Negative (Negative); METHADONE Negative (Negative); OPIATES POSITIVE (Negative); PCP Negative (Negative)
[2019-08-30 13:12] LABS: BACTERIA 1-9 Few /HPF (None Seen); CASTS None Seen /LPF (None Seen); CRYSTALS None Seen /LPF (None Seen); SQUAMOUS 0-3 Few /LPF (0-3); TRANSITIONAL EPITHEL CELL 0-3 Few /LPF (None Seen); URINE RBC >20 Many /HPF (0-2); URINE WBC 0-5 Rare /HPF (0-5)
[2019-08-30 14:09] LABS: FOLIC ACID 21.7 ng/mL (8.6-58.9)
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
[2019-08-31] VITALS (29 sets, daily range): BP systolic 92–215; BP diastolic 48–99
--- NOTE | 2019-08-31 03:50 | NUR ---
ASSUMED PT CARE AT 1900. VSS. PT ON CONTINUOUS BIPAP AND PRECEDEX WITH PRN ATIVAN PER [facility] SCORE. WOULD VOICE MUMBLED WORDS OCASSIONALLY WHEN ASKED QUESTIONS. APPEARS RESTLESS IN BED AT TIMES. PT IS STABLE, WILL CONTINUE TO MONITOR PER POC.
[2019-08-31 04:50] LABS: HEMATOCRIT 32.1 % (42.0-52.0); HEMOGLOBIN 10.3 gm/dL (14.0-18.0); MCH 28.8 pg (26.0-34.0); MCV 90.2 fL (80.0-100.0); PLATELET COUNT 246 thou/uL (150-400); RBC 3.56 mil/uL (4.50-6.00); RDW 16.1 % (10.5-14.5); WBC 20.1 thou/uL (4.0-11.0)
[2019-08-31 05:20] LABS: CALCIUM 8.4 mg/dL (8.5-10.1); CREATININE 0.6 mg/dL (0.7-1.3); POTASSIUM 4.6 mmol/L (3.5-5.1)
[2019-08-31 06:58] LABS: ABSOLUTE NEUTROPHILS 19.3 thou/uL (1.4-8.2); ANISOCYTOSIS 1+
[2019-08-31 15:58] LABS: BE(vivo) -2.8 mmol/L (-2 to +3); HCO3 22.9 mmol/L (22.0-26.0); PCO2 43.4 mmHg (35.0-45.0); PO2 80.2 mmHg (80.0-100.0); pH 7.341 (7.360-7.450); sO2 95.2 % (92.0-98.0)
--- NOTE | 2019-08-31 16:36 | NUR ---
PT COMPLAINS OF BACK PAIN MOANS. MEDS GIVEN FOR PAIN SEE MAR FOR TIME OF ADMINISTRATION. LUNGS ARE CLEAR TO DIMINISHED. ON 2 LITERS NASAL CANULA. AT BEDSIDE VISITING THIS EVENING. PROCTOR TO DD WITH YELLOW URINE PRESENT. ON ANTIBIOTICS TREATEMENT. NO ISSUES OR CONERNS NOTED AT THIS TIME PER NURSING. WILL CONTINUE TO PROGRESS TOWARDS GOALS
[2019-08-31 20:07] LABS: BE(vivo) -4.1 mmol/L (-2 to +3); HCO3 22.2 mmol/L (22.0-26.0); PCO2 45.4 mmHg (35.0-45.0); sO2 95.2 % (92.0-98.0)
[2019-08-31 20:09] LABS: pH 7.307 (7.360-7.450)
[2019-09-01] VITALS (50 sets, daily range): BP systolic 101–160; BP diastolic 54–78
--- NOTE | 2019-09-01 03:05 | NUR ---
ASSUMED CARE OF PT AT 1900. AT THAT TIME, PT IN DISTRESS WITH ELEVATED HR, RR, AND BP. PT ON BIPAP AT THAT TIME. PT HAD BEEN GIVEN VERSED AND ATIVAN IN THE LAST HOUR, WITH NO IMPROVEMENT. PT WAS ALSO ON MAX DOSE OF PRECEDEX. DR. GRANADOS UPDATED ON PT'S CONDITION. AT DR. GRANADOS'S REQUEST, ER PHYSICIAN CONTACTED TO INTUBATE PT. SPOKE WITH PRIOR TO INTUBATION. ASKED IF WE COULD TRY TO GIVE THE PT XANAX FIRST BEFORE INSERTING THE BREATHING TUBE. WAS INFORMED THAT PT HAD BEEN GIVEN VERSED AND ATIVAN, WITH NO IMPROVEMENT. SAID SHE WAS OKAY WITH INTUBATION AT THAT TIME. DR. RUFF PERFORMED INTUBATION. ETOMIDATE AND SUCCINYLCHOLINE GIVEN PER PHYSICIAN'S ORDERS. PT'S AIRWAY HAD TO BE SUCTIONED PRIOR TO INTUBATION D/T LARGE AMOUNT OF DRIED SECRETIONS. INTUBATION COMPLETE AT 1920. CXR OBTAINED TO CONFIRM PROPER PLACEMENT. PROPOFOL GTT INITIATED TO SEDATE PT. PRECEDEX GTT HAD BEEN STOPPED FOR A FEW HOURS FOLLOWING INTUBATION, BUT WAS RESTARTED AT MN D/T INCREASING ANXIETY/AGITATION WITH SIGNIFICANT TREMORS. ATIVAN HAD BEEN GIVEN WITH NO IMPROVEMENT. PT IS NOW PROPERLY SEDATED AND VITAL SIGNS ARE STABLE (SEE DOCUMENTATION). WILL CONTINUE TO MONITOR. *TOP DENTURE PLATE REMOVED PRIOR TO INTUBATION. DENTURES ARE NOW SOAKING IN DENTURE CUP ON COUNTER IN PT'S RM. PT'S LABEL APPLIED TO DENTURE CUP.
--- NOTE | 2019-09-01 03:40 | NUR ---
PRIOR TO BEING INTUBATED, PT HAD BECOME EXTREMELY AGITATED AND WAS HITTING ARMS AGAINST SIDE RAILS. THIS RESULTED IN TWO SKIN TEARS TO HIS RIGHT ARM. SKIN TEARS HAVE BEEN PHOTOGRAPHED AND DOCUMENTED.
[2019-09-01 05:22] LABS: BE(vivo) -3.1 mmol/L (-2 to +3); PCO2 45.3 mmHg (35.0-45.0); PO2 129.4 mmHg (80.0-100.0); sO2 98.3 % (92.0-98.0)
[2019-09-01 05:23] LABS: pH 7.323 (7.360-7.450)
[2019-09-01 06:08] LABS: HEMOGLOBIN 10.8 gm/dL (14.0-18.0); MCH 28.4 pg (26.0-34.0); MCHC 31.8 g/dL (28.0-37.0); MCV 89.3 fL (80.0-100.0); RBC 3.81 mil/uL (4.50-6.00); RDW 16.2 % (10.5-14.5); WBC 17.7 thou/uL (4.0-11.0)
[2019-09-01 06:22] LABS: ALBUMIN 2.4 g/dL (3.4-5.0); CALCIUM 8.3 mg/dL (8.5-10.1); CREATININE 0.5 mg/dL (0.7-1.3); MAGNESIUM 1.9 mg/dL (1.8-2.4); PHOSPHORUS 2.7 mg/dL (2.5-4.9); POTASSIUM 4.2 mmol/L (3.5-5.1); TOTAL BILIRUBIN 0.2 mg/dL (<0.1-1.0); TOTAL PROTEIN 5.2 g/dL (6.4-8.2)
--- NOTE | 2019-09-01 08:19 | NUR ---
There will be no weaning trial today as this patient was just intubated on 08/31/19
--- NOTE | 2019-09-01 10:31 | NUR ---
Recommend vital high protein start 30ml/hr with goal of 55ml/hr
--- NOTE | 2019-09-01 16:01 | NUR ---
PT REAMINS ON THE VENT. WITH SEDATION IN RESTRATINTS. TURN Q2 HOURS. LUNGS ARE CLEAR TO DIMINISHED. STATED ON TUBE FEEDING TOLERAIING NO RESIDUAL NOTED. PROCTOR TO DD WITH LIGHT YELLOW URINE PRESENT. ON ANTIBIOTICS TREATEMENT. NO ISSUES OR CONCERNS NOTED. WILL CONTINUE TO ASSESS AND MONITOR AND PROGRESS TOWARDS GOALS
[2019-09-02] VITALS (35 sets, daily range): BP systolic 118–176; BP diastolic 56–96
--- NOTE | 2019-09-02 05:58 | NUR ---
ASSUMED PT CARE AT 1900. VSS. PT INTUBATED AND SEDATED BUT RESPONDS TO TACTILE AND PAIN STIMULI. BLE REMAINS RED AND WARM TO TOUCH WITH EDEMA. GOOD URINE OUTPUT OF 1075 THIS SHIFT. NO BM YET. TOLERATING HIS TUBE FEEDING; NOW AT 40ML/HR. PT REMAINS RESTRAINED BECAUSE HE REACHES FOR HIS TUBE WHENEVER HE IS TEMPORARILY UNRESTRAINED. PT IS STABLE, WILL CONTINUE TO MONITOR PER POC.
--- NOTE | 2019-09-02 10:26 | NUR ---
ON THE VENT, LIGHTLY SEDATED. DURING SEDATION VACATION IS RESTLESS, DOESN'T FOLLOW COMMANDS. TOLERATING TUBEFEEDING PER OGT. PROCTOR WITH ADEQUATE OUTPUT. WILL CONTINUE WITH POC.
[2019-09-02 13:01] LABS: BE(vivo) 4.9 mmol/L (-2 to +3); HCO3 29.4 mmol/L (22.0-26.0); PO2 78.6 mmHg (80.0-100.0); pH 7.453 (7.360-7.450); sO2 96.1 % (92.0-98.0)
--- NOTE | 2019-09-02 13:08 | NUR ---
PATIENT WAS ON CPAP TRIAL WITH LIGHT SEDATION, WAS RESTLESS AND NOT FOLLOWING COMMANDS, ABG RESULTS OBTAINED AND PATIENT PLACED BACK ON AC MODE BY RT.
--- NOTE | 2019-09-02 18:37 | NUR ---
REMAINS HYPERTENSIVE AT TIMES AND DR. VARGAS HAD BEEN NOTIFIED WHEN HE ROUNDED, NO ORDERS RECEIVED. PRN FENTANYL FOR PAIN AND PRN ATIVAN FOR AGITATION.
[2019-09-03] VITALS (24 sets, daily range): BP systolic 93–175; BP diastolic 53–88
--- NOTE | 2019-09-03 02:37 | NUR ---
2015: Patient is in sustained A-fib with RVR. Dr. Ram notified and recieved an order to start Cardizem drip per A-fib protocol.
[2019-09-03 04:44] LABS: BASOPHILS 0.2 % (0.0-2.0); HEMATOCRIT 33.4 % (42.0-52.0); HEMOGLOBIN 10.7 gm/dL (14.0-18.0); LYMPHOCYTES 5.4 % (24.0-44.0); MCH 28.3 pg (26.0-34.0); MCV 88.5 fL (80.0-100.0); MONOCYTES 4.8 % (1.0-8.0); PLATELET COUNT 249 thou/uL (150-400); POLYS 89.6 % (36.0-66.0); RBC 3.77 mil/uL (4.50-6.00); WBC 13.3 thou/uL (4.0-11.0)
[2019-09-03 05:24] LABS: ALBUMIN 2.3 g/dL (3.4-5.0); CALCIUM 8.7 mg/dL (8.5-10.1); CREATININE 0.4 mg/dL (0.7-1.3); POTASSIUM 3.5 mmol/L (3.5-5.1); TOTAL BILIRUBIN 0.3 mg/dL (<0.1-1.0); TOTAL PROTEIN 5.7 g/dL (6.4-8.2)
[2019-09-03 05:24] LABS: BE(vivo) 3.7 mmol/L (-2 to +3); PCO2 41.3 mmHg (35.0-45.0); PO2 88.6 mmHg (80.0-100.0); pH 7.449 (7.360-7.450); sO2 97.1 % (92.0-98.0)
--- NOTE | 2019-09-03 15:30 | NUR ---
ON THE VENT LIGHTLY SEDATED, AWAKENS AND FOLLOWS COMMANDS BUT GETS RESTLESS AND AGITATED AT TIMES. PRN ANTIANXIETY AND PAIN MEDS ADMINISTERED. VITALS STABLE. DIDN'T TOLERATE CPAP TRIAL THIS MORNING. TOLERATING TUBEFEEDING W/O RESIDUALS. SPOUSE UPDATED BY DR. VARGAS AND QNS ANSWERED. WILL CONTINUE WITH POC.
[2019-09-04] VITALS (15 sets, daily range): BP systolic 136–173; BP diastolic 60–83
[2019-09-04 04:45] LABS: CREATININE 0.5 mg/dL (0.7-1.3); POTASSIUM 3.8 mmol/L (3.5-5.1)
--- NOTE | 2019-09-04 06:13 | NUR ---
Received report from offgoing RN and assumed patient care. Patient remains on the ventilator with Precedex infusing. Patient is awake with spouse at bedside. When spouse left, patient became very agitated and combative. Dr. Amaya was notified and received orders to start patient back on Propofol. Patient remained sedated for the remainder of this shift and no further acute events occurred. VS remained stable and blood pressure was treated with the PRN hydralazine. updated on care plan.
[2019-09-04 09:26] LABS: BE(vivo) 6.8 mmol/L (-2 to +3); HCO3 31.2 mmol/L (22.0-26.0); PCO2 43.8 mmHg (35.0-45.0); PO2 79.9 mmHg (80.0-100.0); pH 7.471 (7.360-7.450); sO2 96.4 % (92.0-98.0)
[2019-09-04 10:08] LABS: INFLUENZA A Negative (Negative); INFLUENZA B Negative (Negative); METAPNEUMOVIRUS Negative (Negative); PARAINFLUENZA 1 Negative (Negative); PARAINFLUENZA 2 Negative (Negative); PARAINFLUENZA 3 Negative (Negative); RHINOVIRUS Negative (Negative); RSV A Negative (Negative); RSV B Negative (Negative)
--- NOTE | 2019-09-04 11:02 | NUR ---
Nutrition: propofol needs decreasing. REC increase tube feeds to 65 mL/hr to more accurately meet nutrition needs.
--- NOTE | 2019-09-04 11:35 | NUR ---
PATIENT RESTLESS AND ANXIOUS THIS AM. NURSE WAS ABLE TO CALM PATIENT DOWN FOR CPAP TRIAL AFTER GIVING ATIVAN.PATIENT PASSED CPAP TRIAL AND WAS EXTUBATED AT 1030AM. PATIENT HAS TOLERATEDIT WELL. PATIENT HAS ASKED FOR STUFF TO DRINK.PATIENT WAS MADE AWARE OF THE NEED POSSIBLY HAVE A ST CONSULT TO ASSESS ABILITY TO SWALLOW EFFECTIVILY.THIS NURSEHAS TRIED TWICE TO CALL PATIENTS TO UPDATE HER PER PATIENT REQUEST. NO FURTHER CONCERNS AT THIS TIME. WILL CONTINUE TO MONITOR AND CARE PER PLAN OF CARE.
--- NOTE | 2019-09-04 19:35 | NUR ---
PATIENT EXTUBATED AT 1030 THIS AM. PATIENT TOLERATED IT WELL. PATIENT CONTINUES TO BE TACHYPNIC DUE TO HIGH LEVEL OF ANXIETY. PATIENT DENIES ANY PAIN OTHER THAN ONCE. PAIN MEDICATION GIVEN AND DOES WORK. NO FUTHER CONCERNS AT THIS TIME. WILL CONTINUE TO MONITOR AND CARE PER PLAN OF CARE.
[2019-09-05] VITALS (28 sets, daily range): BP systolic 119–189; BP diastolic 60–97
--- NOTE | 2019-09-05 05:00 | NUR ---
Pt has been anxious and restless through most of the night, he finally is sleeping at this time. He remains confused, he emotes discomfort/anxiety despite treatment. Monitor reads AF/RVR with rates up to the 160's, (nothing that is sustained), with amiodarone to run at 1 mg/min x 24 hours. Pt with +2 edema to medhat hands, making O2 sats difficult to attain, nailbeds are pale. Garcia is patent, draining dark yellow urine. Fecal mgmt is patent, draining dark green liquid stool. The bed is in the low/locked position, the bed alarm is set, the siderails are up x 4, and he is being closely monitored.
--- NOTE | 2019-09-05 16:11 | NUR ---
PATIENT IS ALERT AND ORIENTED. PATIENT IS WEAK. PATIENT IS ON 2LNC. EXTUBATED YESTERDAY. PATIENT DENIES PAIN AT THIS TIME. PATIENT IS RESTING IN BED. [facility]
[2019-09-06] VITALS (17 sets, daily range): BP systolic 129–181; BP diastolic 65–91
[2019-09-06 05:42] LABS: HEMATOCRIT 39.5 % (42.0-52.0); HEMOGLOBIN 12.5 gm/dL (14.0-18.0); MCH 27.8 pg (26.0-34.0); MCHC 31.6 g/dL (28.0-37.0); MCV 88.1 fL (80.0-100.0); RBC 4.48 mil/uL (4.50-6.00); RDW 16.2 % (10.5-14.5); WBC 15.2 thou/uL (4.0-11.0)
[2019-09-06 05:50] LABS: CALCIUM 8.9 mg/dL (8.5-10.1); CREATININE 0.5 mg/dL (0.7-1.3); POTASSIUM 3.3 mmol/L (3.5-5.1)
--- NOTE | 2019-09-06 06:42 | NUR ---
PATIENT ALERT AND ORIENTED X4, NO COMPLAINTS OF PAIN. ON ROOM AIR. BLOOD PRESSURE INCREASED THROUGHOUT THE NIGHT, PRN HYDRALAZINE GIVEN. NURSE PRACTITIONER NOTIFIED, NEW ORDERS NOTED. PROCTOR PATENT WITH ADEQUATE OUTPUT. PATIENT RESTED WELL THROUGHOUT THE NIGHT. PLAN OF CARE DISCUSSED WITH PATIENT, NO SIGN OF ACUTE DISTRESS NOTED AT THIS TIME. WILL CONTINUE TO MONITOR.
--- NOTE | 2019-09-06 14:49 | NUR ---
discuss during los, possible move out of icu today and therapy will need to eval. will cont following as needed for dc needs.
--- NOTE | 2019-09-06 17:09 | NUR ---
ASSUMED CARE OF PT AT 0700. PT ALERT AND ORIENTED, IN NO ACUTE DISTRESS, ANXIOUS AT TIMES. REPORTS FEELING VERY WEAK. REQUIRING MAX ASSIST TO TRANSFER TO CHAIR. INCONTINENT OF MULTIPLE LOOSE STOOLS. AT BEDSIDE FOR MOST OF DAY. SMALL APPETITE BUT IMPROVING. EVAL BY SPEECH THERAPY - RECS POSTED IN ROOM. HYPERTENSIVE BUT IMPROVING. POTASSIUM REPLACED- NOW NORMAL. TURNED Q2H AND PRN WHILE IN BED. PENDING [facility]SF[facility] TO [facility]. WILL CONT TO MONITOR.
[2019-09-07] VITALS (17 sets, daily range): BP systolic 107–185; BP diastolic 53–81
[2019-09-07 05:14] LABS: CALCIUM 8.9 mg/dL (8.5-10.1); CREATININE 0.5 mg/dL (0.7-1.3); POTASSIUM 3.4 mmol/L (3.5-5.1)
[2019-09-07 05:16] LABS: HEMATOCRIT 39.8 % (42.0-52.0); HEMOGLOBIN 12.6 gm/dL (14.0-18.0); MCH 27.8 pg (26.0-34.0); MCHC 31.6 g/dL (28.0-37.0); MCV 88.1 fL (80.0-100.0); RBC 4.52 mil/uL (4.50-6.00); RDW 15.9 % (10.5-14.5); WBC 14.8 thou/uL (4.0-11.0)
--- NOTE | 2019-09-07 06:53 | NUR ---
PATIENT ALERT AND ORIENTED X4, PAIN CONTROLLED WITH MEDICATION. ON ROOM AIR. PROCTOR PATIENT 1500 ML THROUGHT THE NIGHT OUT. IV ANTIBIOTICS DISCONTINUED. PATIENT TOLERATING PO MEDICATION WITH APPLESAUCE. POTASSIUM REPLACED PER PROTOCOL. PATIENT PUSHED SELF UP IN BED WITH LEGS WITH MINIMAL ASSISTANCE, WEAK UPPER EXTREMITIES. NO SIGNIFICANT EVENTS OVER NIGHT, PATIENT RESTED WELL. PROGRESSING TOWARDS GOALS. NO SIGN OF ACUTE DISTRESS NOTED AT THIS TIME. WILL CONTINUE TO MONITOR.
--- NOTE | 2019-09-07 07:13 | NUR ---
PATIENT'S WOULD LIKE TO SPEAK TO HOSPITALIST ABOUT MEDICATION LIST, WILL PASS NOTICE TO DAY SHIFT RN.
--- NOTE | 2019-09-07 13:28 | NUR ---
ASSUMED CARE @ 0700 09/07/19, PT ASSESSMENTS AND VSS COMPLETE PER CC-TELE ORDERS. DR VARGAS INFORMED ABOUT 'S CONCERN ABOUT MEDICATIONS PT IS ON, NEW ORDERS RECIEVED, UPDATED WHEN SHE CALLED.
--- NOTE | 2019-09-07 23:10 | NUR ---
Pt with multiple loose stool within the past 24 hrs. He has three large loose stool so far on my shift with atleast 4 stools from previous shift per day Shift RN. His skin around perirectal, buttocks and scrotal areas are very red,excoriated and tenderness. Notified DIRECTOR TELEVISION automation operator; order to place FMS . This RN placed FMS w/o any difficulty, no s/s/x of any injury indicates. He is kirby procedure well.
--- NOTE | 2019-09-07 23:20 | NUR ---
Pt with multiple stools within 24 hrs. Mary area,scrotal and rectal area are veryexcoriated due to above. Notified USHA Mattson;order to place rectal tube.
[2019-09-08 04:56] VITALS: BP 151/72
[2019-09-08 05:21] LABS: HEMATOCRIT 40.4 % (42.0-52.0); HEMOGLOBIN 12.8 gm/dL (14.0-18.0); MCHC 31.8 g/dL (28.0-37.0); MCV 88.3 fL (80.0-100.0); RBC 4.58 mil/uL (4.50-6.00); WBC 15.4 thou/uL (4.0-11.0)
[2019-09-08 05:29] LABS: CALCIUM 8.7 mg/dL (8.5-10.1); CREATININE 0.5 mg/dL (0.7-1.3); POTASSIUM 3.5 mmol/L (3.5-5.1)
[2019-09-08 07:51] VITALS: BP 146/81
[2019-09-08 08:10] LABS: ADENOVIRUS Negative (Negative)
--- NOTE | 2019-09-08 10:49 | NUR ---
left snf for vandana in counter. cm spoke with pt and will look at list when she comes to visit today.
[2019-09-08 18:00] VITALS: BP 147/70
--- NOTE | 2019-09-08 19:17 | NUR ---
PT VSS. ON ROOM AIR. RECTAL TUBE IN PLACE THIS AM, DISCONTINUED THIS AFTERNOON. PRN IMMODIUM GIVEN. NEGATIVE FOR C-DIFF. INCREASING APPETITE. ACCUCHECKS ACHS - INSULIN GIVEN PER SEP. AT BEDSIDE THIS AFTERNOON. PT/OT. REQUIRES TWO PERSON ASSIST FOR TRANSFERS. PROGRESSING. PLAN TO TRANSFER TO SKILLED FACILITY.
--- NOTE | 2019-09-09 06:13 | NUR ---
ASSESSMENTS CHARTED, MEDS CHARTED GIVEN. PATIENT'S PICC LINE WAS DISCONTINUED DURING DAY AND NEW PERIFERAL IV WAS STARTED IN LEFT FOREARM. ALERT AND ORIENTED IN ALL BUT ONE ENCOUNTER, EASILY REDIRECTED. SINUS RHYTHM, BUNDLE BRANCH BLOCK ON TELEMETRY. LUNGS ARE CLEAR ON ROOM AIR. PROCTOR IN PLACE BLOOD TINGED. ON NECTUR THICK LIQUIDS AND PILLS IN APPLESAUCE. FEEDER DUE TO LACK OF FINE AND GROSS MOTOR SKILLS TO BILATERAL UPPER ARMS. ACHS ON MODERATE SSI. ONE LOOSE STOOL DURING SHIFT. ASSIST X 2 TO CHAIR. SKIN ISSUES ARE REDNESS TO SCROTAL, RICKY AREA BARRIER CREAM APPLIED. LEFT HAD IS RED AND SWOLLEN. RIGHT ARM HAS SKIN TEARS. C/O ANXIETY TWICE DURING SHIFT. PLAN OF CARE TAPER STEROIDS, CONTINUE ANTIBIOTIC THERAPY.
[2019-09-09 08:50] VITALS: BP 169/84
[2019-09-09 12:40] VITALS: BP 138/85
[2019-09-09 14:15] LABS: URINE BILIRUBIN NEGATIVE (Negative); URINE BLOOD 3+ (Negative); URINE CLARITY CLOUDY; URINE COLOR YELLOW; URINE GLUCOSE-RANDOM* NEGATIVE (Negative); URINE KETONES NEGATIVE (Negative); URINE LEUKOCYTES-REFLEX NEGATIVE (Negative); URINE NITRITE-REFLEX NEGATIVE (Negative); URINE PROTEIN (DIPSTICK) NEGATIVE (Negative); URINE SPECIFIC GRAVITY <= 1.005 (1.005-1.035); URINE UROBILINOGEN 0.2 E.U./dl (0.2-1.0)
[2019-09-09 14:28] LABS: BACTERIA-REFLEX 1-9 Few /HPF (None Seen); CASTS None Seen /LPF (None Seen); CRYSTALS None Seen /LPF (None Seen); SQUAMOUS None Seen /LPF (0-3); URINE WBC-REFLEX None Seen /HPF (0-5)
[2019-09-09 15:15] VITALS: BP 136/80
--- NOTE | 2019-09-09 16:52 | NUR ---
ASSUMED CARE AT SHIFT CHANGE, ALERT AND ORIENTED. DENIES ANY DISOCMFORT. BP 169/84 AT 8 AM, SCHEDULED MEDS GIVEN, AND OTHER VSS AND AFEBRILE. PATIENT HAD LOOSE STOOLD, DR GARCIA NOTIFIED, AND NEW ORDERS PLACED. PROGRESSING TOWARDS GOALS AND WILL CONTNUE WITH POC.
[2019-09-09 20:10] VITALS: BP 143/74
[2019-09-10] VITALS: BP 141/75
[2019-09-10 04:00] VITALS: BP 149/67
--- NOTE | 2019-09-10 06:02 | NUR ---
PATIENTS CARE WERE ASSUMED AT SHIFT CHANGE. PATIENTS WAS ASSESSED AND MEDS WERE PASSED. PATIENT HAD ANOTHER STOOL THIS SHIFT AND A SAMPLE WAS SENT TO THE LAB. PATIENT HAD 37 OUT OF THE PROCTOR. ESAU RED IN COLOR WITH A FEW CLOTTS. WILL PASS ON REPORT TO GET A ORDER FROM DOCTOD TO IRRAGATE IF CLOTTS BLOCK URINE. LOMOTOL WAS GIVEN AND HIS XANAX. HOURLY ROUNDS WERE DONE. THE BED IS IN A LOW AND LOCKED POSITION
[2019-09-10 08:19] LABS: HEMATOCRIT 46.7 % (42.0-52.0); MCH 27.9 pg (26.0-34.0); MCHC 31.7 g/dL (28.0-37.0); MCV 88.1 fL (80.0-100.0); RBC 5.3 mil/uL (4.50-6.00); RDW 15.7 % (10.5-14.5); WBC 16.9 thou/uL (4.0-11.0)
[2019-09-10 08:20] LABS: HEMOGLOBIN 14.8 gm/dL (14.0-18.0)
[2019-09-10 08:22] VITALS: BP 149/83
[2019-09-10 08:32] LABS: CALCIUM 8.8 mg/dL (8.5-10.1); CREATININE 0.6 mg/dL (0.7-1.3); MAGNESIUM 1.8 mg/dL (1.8-2.4); PHOSPHORUS 2.5 mg/dL (2.5-4.9); POTASSIUM 4.2 mmol/L (3.5-5.1)
[2019-09-10 12:09] VITALS: BP 122/73
[2019-09-10 16:42] VITALS: BP 146/82
[2019-09-10 20:01] VITALS: BP 131/83
[2019-09-11 04:21] VITALS: BP 135/77
[2019-09-11 04:41] LABS: HEMATOCRIT 41.6 % (42.0-52.0); HEMOGLOBIN 13.2 gm/dL (14.0-18.0); MCH 27.9 pg (26.0-34.0); MCHC 31.7 g/dL (28.0-37.0); MCV 87.8 fL (80.0-100.0); RBC 4.74 mil/uL (4.50-6.00); RDW 15.8 % (10.5-14.5); WBC 14.5 thou/uL (4.0-11.0)
--- NOTE | 2019-09-11 04:57 | NUR ---
pt resting on and off in room assited with some turning and repositioning thru the noc, spouse at bedside offering support, vss, prn pain meds given for c/o chronic back pain, will con't to monitor per ppoc.
[2019-09-11 05:01] LABS: CALCIUM 8.7 mg/dL (8.5-10.1); CREATININE 0.7 mg/dL (0.7-1.3); MAGNESIUM 1.7 mg/dL (1.8-2.4); POTASSIUM 3.6 mmol/L (3.5-5.1)
[2019-09-11 07:30] VITALS: BP 134/78
[2019-09-11 11:30] VITALS: BP 126/61
[2019-09-11 16:30] VITALS: BP 143/96
--- NOTE | 2019-09-11 17:04 | NUR ---
ASSUMED CARE AT SHIFT CHANGE, ALERT AND ORIENTED X4 BUT FORGETFUL. VSS AND AFEBRILE. PROCTOR TO DD WITH DARK MONI/BLOOD TINGED URINE, AND DR GARCIA NOTIFIED, NEW ORDERS IN AND PATIENT WAITING FOR BED TO OPEN AT [facility]. AND WILL CONTINUE WITH POC.
--- NOTE | 2019-09-11 17:20 | NUR ---
patient with need for urology. Casemgr and Dr Brady have contacted [facility]. They have not accepted patient at this time. Udpated patient and and reviewed transfer to [facility]. Reviewed post acute care list with and patient. They plan to review this evening.
[2019-09-11 19:49] VITALS: BP 126/77
[2019-09-12 04:00] VITALS: BP 140/82
[2019-09-12 05:10] LABS: CALCIUM 8.8 mg/dL (8.5-10.1); CREATININE 0.6 mg/dL (0.7-1.3); MAGNESIUM 1.7 mg/dL (1.8-2.4); POTASSIUM 3.6 mmol/L (3.5-5.1)
[2019-09-12 06:02] LABS: HEMATOCRIT 40.8 % (42.0-52.0); HEMOGLOBIN 13.1 gm/dL (14.0-18.0); MCH 28.1 pg (26.0-34.0); MCV 87.8 fL (80.0-100.0); RBC 4.64 mil/uL (4.50-6.00); RDW 15.7 % (10.5-14.5); WBC 12.6 thou/uL (4.0-11.0)
[2019-09-12 08:10] VITALS: BP 130/73
--- NOTE | 2019-09-12 09:04 | NUR ---
PT RESTING AFTER PRN FENTANYL FOR C/O BACK AND LEG PAIN, PT ABLE TO TURN SELF IN BED, SPOUSE AT BEDSIDE OFFFERING SUPPORT, TOLERATED PILLS WITH THICKENED WATER, VSS, TRANSFER ORDERS FOR [facility] PENDING OPEN ROOM, PT AND SPOUSE AWARE, REPORT GIVEN TO NEXT SHIFT TO CON'T WITH PPOC.
[2019-09-12 11:52] VITALS: BP 107/85
--- NOTE | 2019-09-12 14:47 | NUR ---
FAXED REFERRAL TO [facility] RECEIVED CONFIRMATION AND LEFT MSG WITH LEENA IN ADM TO REVIEW. [facility] RECEIV[facility] CONFIRMATION AND LEFT MSG WITH REYNA IN ADM TO REVIEW. DP TO FOLLOW.
--- NOTE | 2019-09-12 15:24 | NUR ---
REPORT RECIEVED FROM CIELO FIORE.
[2019-09-12 16:05] VITALS: BP 123/74
--- NOTE | 2019-09-12 16:36 | NUR ---
Referrals for skilled care to [facility], [facility] and [facility]. [facility] with no beds avail. Cont to try transfer to [facility] and [facility]. Both are cont to review. Updated and patient.
--- NOTE | 2019-09-12 17:23 | NUR ---
Dr Brady sp with PA at [facility] regarding blood in urine. Plan CBI to begin at [facility] and possible voiding trial. Reconsider [facility] transfer if needed. If resolved plan skilled care either [facility] or [facility]. Updated patient and . Cas[facility] following.
--- NOTE | 2019-09-12 17:41 | NUR ---
RECEIVED PT'S CARE AROUN 0710; PT. ON BED; ALERT; DURING AM ASSESSMENT PT. AOX4; FORGETFUL; AM MEDICATIONS GIVEN; C/O HEADACHE; NO PO PRN MEDICATION; PHYSICIAN NOTIFIED; PRN PO MEDICATION GIVEN; RE-ASSESSMENT PT. RESTING WITH EYES CLOSED; AROUND 1400 PT'S CARE PASSED TO [facility]; SR ON THE MONITOR; ASSESSMENT CHARGED; FOLLOWING POC; PASSED ON REPORT;
--- NOTE | 2019-09-12 18:55 | NUR ---
INSERT 3 WAY CATHETER USING STERILE TECHNIQUE AND START BLADDER IRRIGATION PER DR. GARCIA INSRTUCTION.
[2019-09-12 20:52] VITALS: BP 130/70
--- NOTE | 2019-09-13 04:32 | NUR ---
ASSUMED PT CARE AT 190. PT IS ALERT AND ORIENTED. NO SIGN OF DISTRESS NOTED IN PT. SPOUSE AT BEDSIDE. CONTINUOUS BLADDER IRRIGATION IS IN PLACE DUE TO HEMATURIA. NO SIGN OF DISTRESS NOTED IN PT. ASSESSMENT COMPLETED A DOCUMENTED. FALL PRECAUTION IN PLACE. SCHEDULED MEDS ADMINISTERED TO PT. PAIN MED ADMINISTERED TO PT. NO NAUSEA/VOMITING NOTED. CONTINUE TO MONITOR PATIENT. DENIES ANY FURTHER NEEDS AT THIS TIME.
[2019-09-13 05:09] VITALS: BP 99/52
[2019-09-13 11:28] VITALS: BP 109/67
--- NOTE | 2019-09-13 12:09 | NUR ---
patient accepted to [facility] for skilled with tenative dc .
--- NOTE | 2019-09-13 12:41 | EKG ---
[facility] [place] [address] ELECTROCARDIOGRAM REPORT Name: HANSEL RAMIREZ Room #: 208-P ADM IN M.R.#: [id number] Admission: 08/29/19 Attend Phys: Ronni Albarado MD Discharge: Date of : 46 Report #: [id number] THIS REPORT FOR: cc: Arnulfo Gomez James A. DO Lundgren, Craig H. MD [facility] ~ THIS REPORT FOR: //name// [facility] Test Date: 2019-09-03 Test Time: 08:28:53 Pat Name: HANSEL RAMIREZ Department: Room: 240 P Gender: M Paper Feeder: DELORES : 1950 Requested By: Terrell Ram Order Number: [id number] MD: Terrell Ram Measurements Intervals [place] Rate: 83 P: 49 TN: 164 QRS: 41 QRSD: 151 T: 191 QT: 383 QTc: 450 Interpretive Statements Sinus rhythm Probable left atrial enlargement Left bundle branch block Compared to ECG 08/29/2019 18:33:33 Atrial fibrillation no longer present Electronically Signed On 09-03-2019 9:45:28 ENTRY LEVEL BUSINESS ANALYST by Terrell Ram [email or web address] <ELECTRONICALLY SIGNED> By: Terrell Ram MD, [facility] 09/03/19 0945 7 Terrell Ram MD, [facility] /EPI
[2019-09-13 13:37] LABS: HEMATOCRIT 40.3 % (42.0-52.0); HEMOGLOBIN 12.8 gm/dL (14.0-18.0); MCH 27.6 pg (26.0-34.0); MCHC 31.7 g/dL (28.0-37.0); MCV 86.9 fL (80.0-100.0); RBC 4.63 mil/uL (4.50-6.00); WBC 12.3 thou/uL (4.0-11.0)
[2019-09-13 13:46] LABS: CALCIUM 9.2 mg/dL (8.5-10.1); CREATININE 0.7 mg/dL (0.7-1.3); MAGNESIUM 2.2 mg/dL (1.8-2.4); POTASSIUM 4.1 mmol/L (3.5-5.1)
--- NOTE | 2019-09-13 16:14 | NUR ---
Tenative plan to dc to [facility] place in am. Sp with Jeanne at [facility]. Patient aware.
[2019-09-13 16:23] VITALS: BP 128/65
--- NOTE | 2019-09-13 18:06 | NUR ---
ASSUMED CARE 0700. ALERT X4 WITH FORGETFULNESS RE-ORIENTS EASILY. MARILEE PAIN, DENIES SOB, VOICED HE WALKED 14 STEPS WITH PT TODAY. CBI DC'S AND BLADDER TRAINING BEGINNIG. PROTOCAL IN PLACE FROM FOR MECHANICAL CHOPPED, NO STRAWS, THIN LIQUIDS, MEDS WITH APPLE SAUCE. PLANS TO DC TO REHAB TOMORROW. CALL LIGHT IN REACH. BED ALARM SET. STAFF TO ANTICIPATE NEEDS.
[2019-09-13 20:50] VITALS: BP 135/66
--- NOTE | 2019-09-14 04:40 | NUR ---
ASSUMED PT CARE AT 1900. PT IS ALERT AND ORIENTED. NO SIGN OF DISTRESS NOTED IN PT. SPOUSE AT BEDSIDE. DENIES ANY PAIN. FALL PRECAUTION IN PLACE, VITAL SIGNS STABLE. ASSESSMENT COMPLETED AND DOCUMENTED. SCHEDULED MEDS ADMINISTERED TO PT. TOLERATED PO INTAKE. PT SEEN ANXIOUS ABOUT LEAVING TODAY. DENIES ANY FURTHER NEEDS AT THIS TIME.
[2019-09-14 04:47] VITALS: BP 140/78
[2019-09-14 07:55] VITALS: BP 138/65
[2019-09-14 08:34] VITALS: BP 140/78
--- NOTE | 2019-09-14 11:20 | EKG ---
[address] [place] [address] ELECTROCARDIOGRAM REPORT Name: RAMIREZHANSEL Room #: 208-P ADM IN M.R.#: [id number] Admission: 08/29/19 Attend Phys: Ronni Albarado MD Discharge: Date of : 46 Report #: [id number] THIS REPORT FOR: //name// [facility] ED Test Date: 2019-08-29 Test Time: 18:33:33 Pat Name: HANSEL RAMIREZ Department: Room: 240 Gender: M Marine Reporter: patricia : 1950 Requested By: Lisette Malagon Order Number: [id number] MD: Leoncio Beyer Measurements Intervals [place] Rate: 152 P: 58 MD: 156 QRS: 85 QRSD: 132 T: -1 QT: 343 QTc: 546 Interpretive Statements Afib/aflutter with LBBB Baseline wander in lead(s) V3,V6 Compared to ECG 06/09/2018 22:20:35 Electronically Signed On 08-30-2019 8:00:03 BELL RINGER by Leoncio Beyer [email or web address] <ELECTRONICALLY SIGNED> By: Leoncio Beyer MD 08/30/19 0800 32 32 Leoncio Beyer MD /EPI
[2019-09-14] MEDS ORDERED: IPRAT-ALBUT 0.5-3 ML INH (12:10)
[2019-09-14] MEDS ORDERED: COLESTID1 GM PO (12:10)
[2019-09-14] MEDS ORDERED: SEROQUEL 25 MG25 M1 PO (12:10)
[2019-09-14] MEDS ORDERED: CARVEDILOL12.5 MG PO (12:10)
[2019-09-14] MEDS ORDERED: ACIDOPHILUS1 EAC4 PO (12:10)
[2019-09-14] MEDS ORDERED: NEURONTIN 300M300 M2 PO (12:14)
[2019-09-14] MEDS ORDERED: FLOMAX0.4 MG PO (12:27)
--- NOTE | 2019-09-14 14:25 | NUR ---
PT DISCHARGING TODAY TO [facility] FAXED DC ORDERS/SUMMARY TO FACILITY SPOKE WITH LEENA IN ADM SHE RECEIVED ORDERS AND ARRANGED TRANSPORT BY [facility] FOR 1600 TODAY. LEFT MSG ON HOME PHONE AND CELL PHONE FOR PT'S (CALVIN) TIME OF TRANSPORT. UNIT NOTIFIED AND CHART COPY PER US. RN TO CALL REPORT TO [phone].
--- NOTE | 2019-09-14 15:02 | NUR ---
Pt aware and agreeable to dc to snf today. He is anxious to transfer early vs late today. He has been on the phone with his . All parties are aware of the dc plan. 1600 w/c van transport. Chart copy is ready to be sent with the pt and nursing to call report. Pt to be skilled for therapy.
== END 2019-09-14 17:28 | DRG 871 ==
LOC: ER 18:08 → ICU 22:05 → 2N 22:05 → EROBS 22:05 → ICU 08-30 01:16 → 2N 09-09 13:31
PROVIDERS: Emergency Medicine; Hospitalist; Internal Medicine; Nurse Practitioner Family; Pediatrics; Specialist; ADMIT Internal Medicine
PROC: 5A09357 Assistance with Respiratory Ventilation, Less than 24 Consecutive Hours, Continuous Positive Airway Pressure (ICD-10-PCS; principal; 2019-08-31)
PROC: 5A1945Z Respiratory Ventilation, 24-96 Consecutive Hours (ICD-10-PCS; principal; 2019-08-31)
DX: A41.9 Sepsis, unspecified organism (principal); R65.21 Severe sepsis with septic shock; J96.01 Acute respiratory failure with hypoxia; I50.31 Acute diastolic (congestive) heart failure; L03.116 Cellulitis of left lower limb; L03.115 Cellulitis of right lower limb; I16.1 Hypertensive emergency; J44.1 Chronic obstructive pulmonary disease with (acute) exacerbation; G93.40 Encephalopathy, unspecified; F32.9 Major depressive disorder, single episode, unspecified; N40.0 Benign prostatic hyperplasia without lower urinary tract symptoms; C67.9 Malignant neoplasm of bladder, unspecified; M41.9 Scoliosis, unspecified; M54.30 Sciatica, unspecified side; B95.4 Other streptococcus as the cause of diseases classified elsewhere; I11.0 Hypertensive heart disease with heart failure; I35.0 Nonrheumatic aortic (valve) stenosis; I05.0 Rheumatic mitral stenosis; R19.7 Diarrhea, unspecified; Z79.891 Long term (current) use of opiate analgesic; Z90.89 Acquired absence of other organs; Z87.442 Personal history of urinary calculi; Z79.899 Other long term (current) drug therapy; Z87.891 Personal history of nicotine dependence
CPT/HCPCS: 10078; 10081; 27000

== ENCOUNTER → 2019-11-01 | Outpatient (CLI) | payer OTHER ==
[~2019-11-01] VITALS: Ht 165.1 cm; Wt 61.7 kg
[~2019-11-01] MED LIST changes: +ACIDOPHILUS1 EAC4 PO; +CARVEDILOL12.5 MG PO; +COLESTID1 GM PO; +FUROSEMIDE 20 M20 MG PO; +IPRAT-ALBUT 0.5-3 ML INH; +MORPHINE SULFAT15 M3 PO; +NEURONTIN 300M300 M2 PO; +PERCOCET 7.5-31 EAC1 PO; +SEROQUEL 25 MG25 M1 PO
[2019-11-01 12:59] VITALS: BP 124/67
--- NOTE | 2019-11-01 13:06 | NUR ---
Pain Clinic Assessment: 1. History of Osteoarthritis: Right Upper Extremity BACK History of Rheumatoid Arthritis: Not Applicable 2. Height: 5 ft. 5 in. 165.1 cm. Weight: 136.0 lb. oz. 61.689 kg. Patient's BMI: 22.6 3. Vital Signs: BP: 124/67 Pulse: 84 Resp: 16 Temp: 02 Sat: 99 ECG Mon: 4. Pain Intensity: 10/ACTIVITY 7/REST 5. Fall Risk: Dizziness: N Needs help standing or walking: Y Fallen in the last 3 months: N Fall risk comments: 6. Patient on Blood Thinner: None 7. History of Hypertension: N 8. Opioid Therapy greater than 6 weeks: Y Opiate Contract Signed: 09/16/17 9. Risk Assessment Tool Provided: 1 LOW RISK 10. Functional Assessment Tool: 11. Recreational Drug Use: Past greater than 3 mos Drug Type: Tobacco Use: Former Smoker Tobacco Type: Amount or Packs/day: How Many Years: Alcohol Use: Yes Frequency: Quant:
--- NOTE | 2019-11-01 16:06 | HPC ---
[facility] [place] [address] PAIN MANAGEMENT CONSULTATION Name: HANSEL RAMIREZ Room #: REG [facility]..#: [id number] Admission: 11/01/19 Attend Phys: Arnulfo Santizo DO Discharge: Date of : 46 Report #: [id number] THIS REPORT FOR: cc: Arnulfo Gomez James A. DO Johnson, James E. DO ~ DATE OF SERVICE: 11/01/2019 REFERRING PHYSICIAN: Arnulfo Gomez D.O. CHIEF COMPLAINT: Low back pain, bilateral lower extremity pain, right arm pain. HISTORY OF PRESENT ILLNESS: As you know, the patient is a 69-year-old male who returns today in followup visit for medication management. He requests refill on both his morphine and oxycodone medications. He also utilizes diclofenac gel, but has forgotten he had available to him. He noted good efficacy when he used the medication in the past. He is going to restart that medication, but does request refill on his chronic pain medications. He denies any side effects to medication including somnolence, decrease in mental acuity, disorientation and confusion. He continues to report elevated pain scores again today. ALLERGIES: No known drug allergies. CURRENT MEDICATIONS: Pepcid, oxycodone 7.5/325 one tab every 6 hours p.r.n. for pain, morphine ER 15 mg b.i.d., ibuprofen, quetiapine, gabapentin, Ellipta, Flomax, duloxetine, prednisone and Symbicort. SOCIAL HISTORY: The patient denies current tobacco use. Denies IV or illicit drug use. Denies any chronic alcohol use. He is accompanied by his , present in room today. IMAGING: No new imaging available. PQRS: The patient has known arthritic changes of the bilateral shoulders, cervical spine and lumbar spine. No rheumatoid arthritis. He is placing pain today anywhere from 7-10/10. He is a fall risk, but has not had a fall in last 3 months. He does utilize ambulatory devices on a continued basis. He is not on blood thinners and reports he is not treated for hypertension. He is on chronic opioids and is under contract with [facility] for those medications. He has a low opioid addiction potential. Pain impact score is 41/70, moderate interference of daily activities secondary to pain. PHYSICAL EXAMINATION: VITAL SIGNS: Blood pressure 124/67, pulse 84, respiratory rate 16 and unlabored, the patient is 99% on room air. Height 5 feet 5 inches tall, weight [address] [address] PAIN MANAGEMENT CONSULTATION Name: HANSEL RAMIREZ Room #: REG [facility]#: [id number] Admission: 11/01/19 Attend Phys: Arnulfo Santizo DO Discharge: Date of : 48 Report #: [id number] 136 pounds, BMI calculated 22.6. GENERAL: Well-developed, well-nourished, well-hydrated 69-year-old male appearing stated age. He appears somewhat frail and kyphotic. EXTREMITIES: Show no clubbing, no cyanosis, no edema. MUSCULOSKELETAL: Lower extremity strength and upper extremity strength are deconditioned bilaterally. There does not appear to be any loss of function. He does have difficulty with movement of his right shoulder versus left due to pain generation. He is in a kyphotic position in a wheelchair. ASSESSMENT: 1. Comminuted humeral head fracture of the right. 2. Chronic lumbar radiculopathy. 3. Spinal stenosis of lumbar spine. 4. Kyphoscoliosis. 5. Osteoarthritis of multiple joints. 6. Degeneration of lumbar spine. 7. Chronic intractable pain. 8. Medication management requiring complicated treatment. PLAN: 1. The patient returns today in followup visit for medication management. He feels medications are working beneficially despite the elevated pain level reported today of 7-10/10. The patient has recently just been discharged from the hospital due to chronic obstructive pulmonary disease exacerbation. He appears to be healing from this issue and was released home recently from rehab after this hospitalization. He returns today for refill of medications. He states that they are working well. 2. We reviewed the fact that opiate medications are being used to provide analgesia adequate to support activities of daily living, not attempting to achieve a specific pain score on the 0-10 Visual Analog Scale. The current opiate medications are providing sufficient analgesia to allow the patient to participate in activities of daily living. The patient is not exhibiting any aberrant behavior suggestive of drug diversion. The patient is not having any adverse reactions to medications. The patient is not suffering from daytime somnolence or mental acuity changes. The patient is managing opiate-induced constipation with appropriate jyyg-bgv-nkgjcet agents and dietary considerations. The patient was counseled on concern for caution with operating a motor vehicle while using opiate medications. 3. The patient was provided prescription of MS Contin 15 mg dose 1 tab p.o. b.i.d. I have given the patient #60 tablets, releasing today and 4 weeks from today, 2 months' worth of medication. 6. The patient was provided prescription of oxycodone 7.5/325 one tab p.o. q. 6 hours p.r.n. for pain. I have given the patient #120, released now, and 4 weeks from today. 5. The patient was provided refill prescription of Voltaren gel 1% solution applied topically up to 3 times a day. I have given him 100 grams tubes with 2 [facility] [address] [place] [address] PAIN MANAGEMENT CONSULTATION Name: HANSEL RAMIREZ Room #: REG [facility]#: [id number] Admission: 11/01/19 Attend Phys: Arnulfo Sanitzo DO Discharge: Date of : 46 Report #: [id number] refills. 6. We will see the patient back in followup visit for medication management in 2 months. <ELECTRONICALLY SIGNED> By: Arnulfo Santizo DO 11/01/19 1606 1446 1550 Arnulfo Santizo DO /nt
== END | disposition home or self-care (01) ==
LOC: PAIN 06:55
DX: M54.5 Low back pain (principal); G89.29 Other chronic pain; M51.16 Intervertebral disc disorders with radiculopathy, lumbar region; M48.061 Spinal stenosis, lumbar region without neurogenic claudication; M41.86 Other forms of scoliosis, lumbar region; M19.90 Unspecified osteoarthritis, unspecified site; S42.201A Unspecified fracture of upper end of right humerus, initial encounter for closed fracture; Z98.890 Other specified postprocedural states; Z79.899 Other long term (current) drug therapy; X58.XXXA Exposure to other specified factors, initial encounter; Y93.89 Activity, other specified; Y92.89 Other specified places as the place of occurrence of the external cause; Y99.8 Other external cause status

== ENCOUNTER → 2019-11-29 | Outpatient (CLI) | payer OTHER | LOC: SJCVC 14:14 | DX: I11.9 Hypertensive heart disease without heart failure (principal); R94.31 Abnormal electrocardiogram [ECG] [EKG]; I35.0 Nonrheumatic aortic (valve) stenosis; R60.9 Edema, unspecified; R79.89 Other specified abnormal findings of blood chemistry; J43.9 Emphysema, unspecified; E03.9 Hypothyroidism, unspecified; E78.00 Pure hypercholesterolemia, unspecified; Z79.899 Other long term (current) drug therapy; Z87.891 Personal history of nicotine dependence ==

== ENCOUNTER → 2020-01-16 | Outpatient (CLI) | payer OTHER ==
[~2020-01-16] VITALS: Ht 165.1 cm; Wt 68.5 kg
[~2020-01-16] MED LIST changes: +LASIX 20 MG TAB20 MG PO; +PREDNISONE 10 M10 M1 PO
[2020-01-16 10:55] VITALS: BP 159/89
--- NOTE | 2020-01-16 11:05 | NUR ---
Pain Clinic Assessment: 1. History of Osteoarthritis: Right Upper Extremity BACK History of Rheumatoid Arthritis: DENIES 2. Height: 5 ft. 5 in. 165.1 cm. Weight: 151.0 lb. oz. 68.493 kg. Patient's BMI: 25.1 3. Vital Signs: BP: 159/89 Pulse: 61 Resp: 14 Temp: 02 Sat: 97 ECG Mon: 4. Pain Intensity: 4-5 with meds 5. Fall Risk: Dizziness: N Needs help standing or walking: Y Fallen in the last 3 months: N Fall risk comments: 6. Patient on Blood Thinner: None 7. History of Hypertension: N 8. Opioid Therapy greater than 6 weeks: Y Opiate Contract Signed: 09/16/17 9. Risk Assessment Tool Provided: 1 LOW RISK 10. Functional Assessment Tool: 11. Recreational Drug Use: Past greater than 3 mos Drug Type: Tobacco Use: Former Smoker Tobacco Type: Amount or Packs/day: How Many Years: Alcohol Use: Yes Frequency: Daily Quant: RED WINE-1 GLASS
--- NOTE | 2020-01-17 07:43 | HPC ---
[facility] [address] [place] [address] PAIN MANAGEMENT CONSULTATION Name: HANSEL RAMIREZ Room #: REG [facility]..#: [id number] Admission: 01/16/20 Attend Phys: Emi Damian Discharge: Date of : 46 Report #: [id number] THIS REPORT FOR: cc: Juan Gomez DO Juan Gomez DO Emi Damian ~ CC: JUAN STRAUSS DO DATE OF SERVICE: 01/16/2020 CHIEF COMPLAINT: Low back pain, bilateral lower extremity pain. HISTORY OF PRESENT ILLNESS: This is a pleasant 69-year-old gentleman who returns to the pain clinic today for refill of his medications. He states that he has been doing quite well on his current regimen, rating his pain score 4-5/10. States it is mostly located in his lower back and legs, though he does occasionally have shoulder pain. He continues to do physical therapy several times a week at home with a therapist as well as doing daily exercises. He thinks this has been very beneficial. He feels like he is gaining strength, is able to walk further. The walking and standing does increase his pain in his lower back. He denies problems with constipation. As a result of his medications, he believes that Benefiber for prunes and water have been beneficial. Today, he is requesting refills of his medications. ALLERGIES: No known drug allergies. CURRENT LIST OF MEDICATIONS: Prednisone, Lasix, morphine sulfate 15 mg b.i.d., oxycodone 7.5/325 p.r.n., gabapentin, diclofenac, carvedilol, Pepcid, Flomax, Cymbalta and Symbicort. PQRS: 1. He has osteoarthritis in his shoulders, cervical and lumbar spine. He denies any rheumatoid arthritis. 2. Height is 5 feet 5 inches, weight is 151. BMI is 25. 3. Vital signs 159/89, pulse is 61, respirations 14, oxygen sat is 97%. 4. Pain score is 4/5 with his medications. 5. Denies dizziness. He does need assistance with ambulation. He has a cane and does use a wheelchair. He has not fallen in the last 3 months. 6. The patient is not on any blood thinners and is not being treated for hypertension. 7. He is on chronic opioids. It is under contract. His risk assessment tool is low. Functional assessment is 41/70. 8. Recreational drug use, he denies. He is a former smoker [place] [address] PAIN MANAGEMENT CONSULTATION Name: HANSEL RAMIREZ RUBI [id number] Admission: 01/16/20 Attend Phys: Emi Damian Discharge: Date of : 46 Report #: [id number] According to the prescription monitoring system, the patient is filling appropriately in a timely fashion according to the CDC guidelines, his morphine milliequivalent is 75 MMEs per day. PHYSICAL EXAMINATION: GENERAL: This is a well-developed, well-nourished, well-hydrated 69-year-old gentleman who appears his stated age. He is rating his pain score today at 4-5. HEENT: Normocephalic, atraumatic. Extraocular eye muscles are intact. He has a mask on. EXTREMITIES: No clubbing, no cyanosis, 1+ edema in his lower extremities. He has compression hose on bilaterally. MUSCULOSKELETAL: He is a kyphotic scoliotic gentleman. His lower extremities strength is deconditioned bilaterally. Pain in his lumbosacral region that does radiate down his legs. Positive straight leg raising on the right leg. IMPRESSION: 1. Chronic lumbar radiculopathy. 2. Spinal stenosis of lumbar spine. 3. Kyphoscoliosis. 4. Osteoarthritis of multiple joints. 5. Degeneration of the lumbar spine. 6. Chronic intractable pain. 7. Management of medications, requiring opioid medications. We reviewed the fact that opiate medications are being used to provide analgesia adequate to support activities of daily living, not attempting to achieve a specific pain score on the 0-10 Visual Analog Scale. The current opiate medications are providing sufficient analgesia to allow the patient to participate in activities of daily living. The patient is not exhibiting any aberrant behavior suggestive of drug diversion. The patient is not having any adverse reactions to medications. The patient is not suffering from daytime somnolence or mental acuity changes. The patient is managing opiate-induced constipation with appropriate flvj-oyv-xpfqpql agents and dietary considerations. The patient was counseled on concern for caution with operating a motor vehicle while using opiate medications. PLAN: 1. We discussed treatment options with the patient today. The patient feels he is doing quite well since his hospitalization and rehab stent being discharged in early September. He continues to get stronger, utilizing physical therapy and doing home exercises today. Today, he is quite alert, using his cane for ambulation, encouraged him to continue his exercises at home to strengthen his lower extremities. 2. The patient feels that he is doing better with his activity. He feels like he is also needing less pain medication. Today, we will decrease his oxycodone breakthrough pain medicine from 7.5/325 four times a day to a total of [address] [address] PAIN MANAGEMENT CONSULTATION Name: HANSEL RAMIREZ Room #: REG [facility]#: [id number] Admission: 01/16/20 Attend Phys: Emi Damian Discharge: Date of : 46 Report #: [id number] 30-day supply. The patient and agreeable with this. We will have Dr. Juan Strauss send electronically scripts for today and in 4 weeks. 3. We will continue his morphine sulfate 15 mg, #60. 4. The patient did discuss seeing his urologist. Evidently when he was in the hospital, he developed some hematuria. He had a Garcia in place for a lengthy amount of time. They are wondering about delaying this appointment due to the COVID outbreak. I did agree that they may change it to a slightly later date that works with her work schedule, but I encouraged them to continue to see this urologist due to the fact that he has had a bladder cancer in the past and did have an episode of hematuria, though he reports no visual signs of that currently. They are agreeable with this. They will try to move the appointment to a more desirable date for them. 5. The patient is seen in collaboration with Dr. Juan Strauss. <ELECTRONICALLY SIGNED> By: Emi Damian 01/17/20 0743 1158 1230 Emi Damian /giselle
== END ==
LOC: PAIN 06:58
PROVIDERS: ATTEND Clinical Nurse Specialist Adult Health
DX: M51.16 Intervertebral disc disorders with radiculopathy, lumbar region (principal); M79.604 Pain in right leg; M79.605 Pain in left leg; M48.061 Spinal stenosis, lumbar region without neurogenic claudication; G89.29 Other chronic pain; M19.90 Unspecified osteoarthritis, unspecified site; M41.9 Scoliosis, unspecified; F11.20 Opioid dependence, uncomplicated; Z79.899 Other long term (current) drug therapy

== ENCOUNTER 2020-02-20 17:04 | Inpatient (IN) | payer OTHER ==
[~2020-02-20] VITALS: Ht 167.6 cm; Wt 73.7 kg
[~2020-02-20 17:04] MED LIST changes: +NEURONTIN 400M400 M2 PO
[2020-02-20 17:05] VITALS: BP 193/71
[2020-02-20 17:52] LABS: HEMATOCRIT 37.8 % (42.0-52.0); HEMOGLOBIN 12.6 gm/dL (14.0-18.0); MCH 29.8 pg (26.0-34.0); MCHC 33.3 g/dL (28.0-37.0); MCV 89.3 fL (80.0-100.0); RBC 4.23 mil/uL (4.50-6.00); WBC 29.8 thou/uL (4.0-11.0)
[2020-02-20 18:00] LABS: ANION GAP 7 mmol/L (7-16); BUN 16 mg/dL (7-18); CALCIUM 9.1 mg/dL (8.5-10.1); CHLORIDE 93 mmol/L (98-107); CO2 30 mmol/L (21-32); CREATININE 0.8 mg/dL (0.7-1.3); GLUCOSE 112 mg/dL (74-106); POTASSIUM 4.7 mmol/L (3.5-5.1); SODIUM 130 mmol/L (136-145)
[2020-02-20 18:10] LABS: ALBUMIN 3.7 g/dL (3.4-5.0); SGOT 27 U/L (15-37); SGPT 33 U/L (30-65); TOTAL BILIRUBIN 0.3 mg/dL (0.2-1.0); TOTAL PROTEIN 7.5 g/dL (6.4-8.2); TROPONIN-I <0.06 ng/mL (<0.06)
[2020-02-20 20:14] LABS: BE(vivo) 0.4 mmol/L (-2 to +3); HCO3 22.6 mmol/L (22.0-26.0); PCO2 28.9 mmHg (35.0-45.0); PO2 112.3 mmHg (80.0-100.0); pH 7.511 (7.360-7.450); sO2 98.5 % (92.0-98.0)
[2020-02-21] VITALS (24 sets, daily range): BP systolic 91–198; BP diastolic 43–61
--- NOTE | 2020-02-21 | NUR ---
PT ARRIVED FROM ER ON NON REBREATHER MASK, ACCOMPANIED BY RN AND RT. PT TRANSFERED TO ICU BED. ATTACHED TO MONITOR. ASSESSED PER ICU PROTOCOL. PT IV NO LONGER WORKING. NEW PERIPHERAL IV STARTED. [employer]OREEN PROPERTY AND EQUIPMENT CLERK AT BEDSIDE. ORDER FOR PROCTOR OBTAINED AND INSERTED. PATIENT A&OX4 BUT LETHARGIC, AROUSABLE TO STIMULATION. DR. FARMER CONSULTED, NO NEW ORDERS OBTAINED. DR. FARMER WILL SEE PT IN THE MORNING.
[2020-02-21 04:58] LABS: URINE BILIRUBIN NEGATIVE (Negative); URINE BLOOD 1+ (Negative); URINE CLARITY CLEAR; URINE COLOR YELLOW; URINE GLUCOSE-RANDOM* NEGATIVE (Negative); URINE KETONES NEGATIVE (Negative); URINE LEUKOCYTES-REFLEX TRACE (Negative); URINE NITRITE-REFLEX NEGATIVE (Negative); URINE PROTEIN (DIPSTICK) NEGATIVE (Negative); URINE UROBILINOGEN 0.2 E.U./dl (0.2-1.0)
[2020-02-21 05:17] LABS: SQUAMOUS 4-10 Moderate /LPF (0-3); URINE WBC-REFLEX 0-5 Rare /HPF (0-5)
[2020-02-21 05:18] LABS: BACTERIA-REFLEX 1-9 Few /HPF (None Seen); CASTS None Seen /LPF (None Seen); CRYSTALS None Seen /LPF (None Seen)
[2020-02-21 06:16] LABS: HEMATOCRIT 29.7 % (42.0-52.0); MCV 91.1 fL (80.0-100.0); RBC 3.26 mil/uL (4.50-6.00); RDW 17.2 % (10.5-14.5); WBC 32.2 thou/uL (4.0-11.0)
[2020-02-21 06:23] LABS: CALCIUM 7.7 mg/dL (8.5-10.1); CREATININE 0.9 mg/dL (0.7-1.3); MAGNESIUM 2.7 mg/dL (1.8-2.4); POTASSIUM 4.3 mmol/L (3.5-5.1)
[2020-02-21 06:31] LABS: HEMOGLOBIN 9.8 gm/dL (14.0-18.0)
--- NOTE | 2020-02-21 07:42 | EKG ---
[facility] [place] [address] ELECTROCARDIOGRAM REPORT Name: HANSEL RAMIREZ Room #: 242-P ADM IN M.R.#: [id number] Admission: 02/20/20 Attend Phys: Ronni Albarado MD Discharge: Date of : 46 Report #: [id number] THIS REPORT FOR: cc: Arnulfo Gomez James A. DO Lundgren, Craig H. MD [facility] ~ THIS REPORT FOR: //name// [facility] ED Test Date: 2020-02-20 Test Time: 17:46:53 Pat Name: HANSEL RAMIREZ Department: Room: 242 Gender: M Radio Station Manager: DANE : 1950 Requested By: Mere Morton Order Number: [id number] MD: Terrell Ram Measurements Intervals [place] Rate: 59 P: 52 MI: 181 QRS: 26 QRSD: 139 T: 148 QT: 442 QTc: 438 Interpretive Statements Sinus rhythm Atrial premature complex Probable left atrial enlargement Left bundle branch block Compared to ECG 09/03/2019 08:28:53 Atrial premature complex(es) now present Electronically Signed On 02-21-2020 7:42:12 CDT by Terrell Ram [email or web address] <ELECTRONICALLY SIGNED> By: Terrell Ram MD, FAC 02/21/20 0742 1746 1746 Terrell Ram MD, FAC /EPI
--- NOTE | 2020-02-21 07:43 | EKG ---
[facility] [place] [address] ELECTROCARDIOGRAM REPORT Name: HANSEL RAMIREZ Room #: 242-P ADM IN M.R.#: [id number] Admission: 02/20/20 Attend Phys: Ronni Albarado MD Discharge: Date of : 46 Report #: [id number] THIS REPORT FOR: cc: Arnulfo Gomez James A. DO Lundgren, Craig H. MD [facility] ~ THIS REPORT FOR: //name// [facility] ED Test Date: 2020-02-20 Test Time: 18:56:29 Pat Name: HANSEL RAMIREZ Department: Room: 242 Gender: M Promotional Representative: DANE : 1950 Requested By: Mere Morton Order Number: [id number] MD: Terrell Ram Measurements Intervals [place] Rate: 67 P: 0 OK: 188 QRS: 27 QRSD: 134 T: 198 QT: 339 QTc: 358 Interpretive Statements Sinus rhythm Left bundle branch block Compared to ECG 02/20/2020 17:46:53 Atrial premature complex(es) no longer present Electronically Signed On 02-21-2020 7:42:53 CDT by Terrell Ram [email or web address] <ELECTRONICALLY SIGNED> By: Terrell Ram MD, [facility] 02/21/20 0742 55 55 Terrell Ram MD, [facility] /EPI
--- NOTE | 2020-02-21 10:15 | NUR ---
SPOKE WITH DR CARMONA CONCERNING IV ACCESS AND PATIENT'S AGGITATION WHEN WITHDRAWING FROM PAIN MEDICATIONS. PROCEED WITH PICC LINE AND HE WILL REVIEW HOME MEDICATIONS. IV THERAPY NOTIFIED OF CONSULT, MESSAGE LEFT.
--- NOTE | 2020-02-21 11:53 | NUR ---
VASCULAR ACCESS CONSULTED FOR PICC PLACEMENT. PT'S LABS,MEDS,HISTORY,ORDERS,CONSENT VERIFIED. dr CARMONA REQUESTING PICC LINE DUE TO LOW PLATELET COUNT, AWARE OF INCREASED RISK OF THROMBUS. LORETO BASILIC WAS WIDELY PATENT WITH USG 5FR TL POWER PICC TRIMMED TO 44CM INSERTED TO 2CM EXTERNAL. PT TOLERATED WELL BUT HAS JERKING MOVEMENTS DURING INSERTION. ARM HELD BY CYRUS FIORE. CXR CONFIRMED PLACEMENT AND PICC RELEASED FOR IMMEDIATE USE PER PROTOCOL TO CYRUS FIORE
--- NOTE | 2020-02-21 14:00 | NUR ---
PATIENT HAS PERIODS OF WANTING TO GET UP AND LEAVE, RESTLESS, AGGITATED AND ANXIOUS. PATIENT REORIENTED AND CALMED DOWN, REASSURANCE GIVEN. CALLED IN AND UPDATED THAT THE LINE WAS IN. PATIENT OOZING FROM PICC LINE INSERTION SITE. DRESSING CHANGED.
--- NOTE | 2020-02-21 15:00 | NUR ---
DR CARMONA PAGED FOR DIET AND INFORMED THAT PATIENT GETS CONFUSED AT TIME AND AGGITATED AND THAT HIS BEHAVIOR CHANGES TO THIS WHEN HE IS OFF HIS GABIPENTEN.
--- NOTE | 2020-02-21 15:32 | NUR ---
PT ADMITTED RELATED TO SOB, SEPSIS, COVID R/O. CM REVIEWED CHART AND SPOKE WITH CARE TEAM. PT IS BIPAP AND IS SEDATED. CM CALLED AND SPOKE WITH PT'S SPOUSE CALVIN. SHE INDICATED THAT PT HAD BEEN LIVING IN A HOUSE WITH HER PRIOR TO ADMISSION. SHE INDIATED THERE ARE 2 STEPS TO ENTER WITH BL HR. SPOUSE INDICATED PT HAD BEEN USING A 4WW TO ASSIST WITH MOBILITY . PT HAD GONE TO [facility] IN SEP 2019 AND SPOUSE INDICATED HE HAD DISCHARGED HOME AND HAD JENNIFER AT HOME HOME HEALTH. SHE INDICATED SHE WOULD BE RECEPTIVE TO POST ACUTE STAY IF NEEDED UPON DC BUT WOULD PREFER PT NOT GO TO [facility]. CM TO FOLLOW INDICATED WITH DC PLANNING.
--- NOTE | 2020-02-21 20:27 | NUR ---
PATIENT COVID TEST NEGATIVE. DR JEONG NOTIFIED AND ORDER RECEIVED TO DC ISOLATION, ATTEMPTED TO CALL HIS TO UPDATE HER NO ANSWER. PATIENT CONTINUES TO HAVE PERIODS WHERE HE WANTS TO LEAVE, PULLING OFF OXYGEN. REORIENTED AND REASSURANCE GIVEN. MONITOR REMAINS SINUS ILENE, IN THE 40'S WHEN SLEEPING. BP ELEVATED WITH AGGITATION. O2 WEANED TO 3L/ HFNC. URINE OUTPUT AVERAGING 40 TO 50 ML/HR. TAKING PO DIET AND WATER WITHOUT COUGHING OR POCKETING FOOD.
[2020-02-22] VITALS (9 sets, daily range): BP systolic 144–188; BP diastolic 48–95
--- NOTE | 2020-02-22 03:27 | NUR ---
PT TRANSFERED TO ROOM 202. REPORT GIVEN TO ADEBAYO POLLACK. CALVIN () WAS CALLED TO GIVE AN UPDATE AND LET HER KNOW HER HAS BEEN MOVED TO A NEW ROOM.
--- NOTE | 2020-02-22 04:41 | NUR ---
Pt was a transfer from ICU. Pt was admitted with COPD exac. No sign of distress noted upon arrival. pt is alert and oriented upon arrival to the floor. Denies any pain. Pt is assessed. Pt is on 2l NC. Pt transferred from chair to bed adequately with the use of a gait belt. Pt requested for breathing treatment, RT notified. Continue to monitor pt. No further needs at this time.
[2020-02-22 06:12] LABS: CALCIUM 8.5 mg/dL (8.5-10.1); CREATININE 0.7 mg/dL (0.7-1.3); POTASSIUM 3.7 mmol/L (3.5-5.1)
[2020-02-22 08:08] LABS: HEMOGLOBIN 12.2 g/dL (13.0-17.7)
[2020-02-22 09:56] LABS: APTT 26.5 Seconds (24.5-32.8); FIBRINOGEN 150.8 mg/dL (210-360); INR 1.7; PROTIME 17.4 Seconds (9.3-11.4)
[2020-02-22 10:04] LABS: D-DIMER 30.18 ug/mLFEU (0.19-0.50)
[2020-02-22] MEDS ORDERED: ZITHROMAX500 M1 IV (11:57)
[2020-02-22] MEDS ORDERED: SOLU-MEDRO40 MG/1 M1 IV PUSH (11:57)
[2020-02-22] MEDS ORDERED: VANCOMYCIN1.25 GM/12 IVPB (11:57)
[2020-02-22] MEDS ORDERED: ZOSYN 3.373.375 GM/1 IVPB (11:57)
--- NOTE | 2020-02-22 16:01 | NUR ---
REC CALL FROM PHYS PLAN TRANSFER TO [facility], RESEARCH FOR [POSSIBLE NEW DIAGNOSIS OF LEUKEMIA. SPOKE WITH PATIENT AND AT BEDSIDE. THEY PREFER [facility]. DR DASH AND DR CARMONA AGREEABLE. REFERRAL TO TRANSFER CENTER SP WITH YAIR AT CENTER. FAXED PERTINENT FACE SHEET AND SCANNED CARDS. PHYS FROM [facility] SP WITH DR CARMONA THEY ARE ACCEPTING BUT NO BEDS AVAIL TODAY. POSSIBLY TOMORROW. [facility] FOLLOWING.
[2020-02-22 17:34] LABS: HEMOGLOBIN 9.4 gm/dL (14.0-18.0)
[2020-02-22 17:37] LABS: MCHC 33.5 g/dL (28.0-37.0); MCV 89.6 fL (80.0-100.0); RBC 3.13 mil/uL (4.50-6.00); RDW 17.5 % (10.5-14.5)
[2020-02-22 17:39] LABS: WBC 53.8 thou/uL (4.0-11.0)
[2020-02-22 18:03] LABS: ABSOLUTE NEUTROPHILS 2.7 thou/uL (1.4-8.2); NUCLEATED RBCS 3 /100WBC
[2020-02-22 18:11] LABS: BLASTS 42 %; PLATELET COUNT 55 thou/uL (150-400); PLATELET ESTIMATE DECREASED
[2020-02-22 18:32] LABS: APTT 25.9 Seconds (24.5-32.8); INR 1.8; PROTIME 18.7 Seconds (9.3-11.4)
[2020-02-22 18:40] LABS: D-DIMER 28.88 ug/mLFEU (0.19-0.50); FIBRINOGEN 110.9 mg/dL (210-360)
--- NOTE | 2020-02-22 20:59 | HC ---
[facility] [place] [address] CONSULTATION Name: HANSEL RAMIREZ Room #: 202-P ADM IN M.R.#: [id number] Admission: 02/20/20 Attend Phys: Ronni Albarado MD Discharge: Date of : 46 Report #: [id number] THIS REPORT FOR: cc: Arnulfo Gomez James A. DO McKittrick, Richard James MD ~ CC: Arnulfo Garrison MD DATE OF SERVICE: 02/22/2020 REASON FOR CONSULTATION: Possible acute leukemia. HISTORY OF PRESENT ILLNESS: The patient is a 69-year-old gentleman who was admitted for acute hypoxic respiratory failure. He was also noted to have leukocytosis. The peripheral smear reviewed by Dr. Maria C Parker, he thinks it is likely an acute leukemia with a white count of 30,000, platelets of 65,000, hemoglobin 12.2. Note that back in 09/2019, platelet count was 401,000. Hemoglobin and platelets were more normal at that time. I discussed the results with the patient and told him that I am very strongly suspicious this is an acute leukemia described, we will be checking coags, D-dimer, fibrinogen to try to make sure this is not DIC complicated and acute promyelocytic leukemia. I have also suggested strongly that we consider transfer to a higher level acute care hospital and consider bone marrow biopsy to help sort this out. He asked I call his , Ana, which I tried to do, but unfortunately she was not at their home phone and he cannot recall her cell phone number and I do not find it on the chart. I have also now talked with the oncology social work/manager rn case and also Dr. Ronni Albarado. PAST MEDICAL HISTORY: Notable for the history of COPD, followed by Dr. Jermaine Dover; also history of chronic pain syndrome, depression, history of bladder cancer, followed as an outpatient. SOCIAL HISTORY: Noncontributory. 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 MEDICATIONS: Medications at this time in the hospital currently include; azithromycin 500 mg IV push daily, furosemide 20 mg daily p.o., duloxetine 30 mg daily, gabapentin 800 t.i.d., carvedilol 12.5 b.i.d., oxycodone, Percocet 1 tab q. 6 p.r.n., tamsulosin 0.4 b.i.d., insulin on a sliding scale, ipratropium and albuterol 3 mL respiratory therapy q. 4 while awake, IV fluid and electrolyte protocols. Also; methylprednisolone 80 mg IV q. 8, morphine p.r.n., vancomycin 1.25 grams q. 12 IV, Zosyn 3.375 grams IV q. 8, Lovenox 40 mg at bedtime, famotidine 20 b.i.d., Tylenol p.r.n., Zofran p.r.n. [address] [address] CONSULTATION Name: HANSEL RAMIREZ RUBI Room #: 202-P [facility] IN M.R.#: [id number] Admission: 02/20/20 Attend Phys: Ronni Albarado MD Discharge: Date of : 46 Report #: [id number] PHYSICAL EXAMINATION: GENERAL: The patient appears his stated age. VITAL SIGNS: Height is 5 feet 6, 167.6 cm. Weight is 156 pounds or 71.2 kilograms. Blood pressure is 170/64, O2 sat 97%, respirations 22, pulse 44, temperature orally of 99.1. MOOD: The patient is alert, pleasant, slightly anxious. NEUROLOGIC: The patient's speech and thought pattern appear to be normal. He is moving extremities with good intent. LUNGS: Have some soft rhonchi and occasional cough. No wheezes or stridor. CARDIOLOGY: Appears to be regular rate. LYMPH NODES: None palpable in the supraclavicular, cervical, axillary region. ABDOMEN: Slightly obese. No masses. EXTREMITIES: Without clubbing, cyanosis. There is some mild edema. SKIN: The patient has quite a few ecchymoses on his upper arms and some on his legs, consistent with prednisone type skin. I did not examine the calf wound that has been described. LABORATORY REVIEW: Creatinine of 0.7. Liver functions normal with an AST of 27, alkaline phosphatase is 73, albumin normal at 3.7. Coags are pending. White count 32.2 yesterday, hemoglobin 9.8, platelets 51 yesterday. Differential is pending. Note that on the peripheral smear review by pathology, it was read as findings are consistent with acute leukemia. Numerous promyelocytes/blasts are seen, many with Meme rods. They also made the comment that further evaluation is needed, which may include a bone marrow evaluation for ancillary studies to include immunophenotyping by flow cytometry and/or cytogenetics as clinically indicated. ASSESSMENT AND PLAN: 1. Acute leukemia as above, had suggested transfer to a higher level care facility. We will check a protime, activated partial thromboplastin time, fibrinogen and D-dimer. The patient is aware that this is a very serious illness and will likely require aggressive therapy if he chooses to go that route. We will defer the prognosis to those more specialized in this care, though this can be quite life-limiting. 2. Acute on chronic respiratory failure. Continue with inhalation therapy and steroids. 3. Severe sepsis/urinary tract infection. Continue his broad-spectrum antibiotics. 4. History of mitral regurgitation, aortic stenosis, left bundle-branch block. Defer to others. 5. Hypertension. Meds per others. [facility] [address] [place] [address] CONSULTATION Name: HANSEL RAMIREZ [place] Room #: 202-P [facility] IN M.R.#: [id number] Admission: 02/20/20 Attend Phys: Ronni Albarado MD Discharge: Date of : 46 Report #: [id number] 6. Chronic back pain. Meds per others. 7. History of bladder cancer. Meds per others. <ELECTRONICALLY SIGNED> By: Memo Escudero MD 02/22/20 2059 [id number] [id number] Memo Escudero MD /nt
--- NOTE | 2020-02-22 22:07 | NUR ---
ASSUMED CARE OF PATIENT AT 0700. ASSESSMENTS CHARTED. PATIENT'S AT BEDSIDE FOR THE MAJORITY OF THE DAY. TRANSFER TO [facility] INITIATED BUT DELAYED DUE TO HOSPITAL BEING FULL. DR. GUY AND DR. CARMONA FOLLOWING PATIENT'S CARE CLOSELY WITH LAB REVIEW. ACCUCHECK ACHS. PATIENT ON CLEAR LIQUID DIET WITH POOR APPETITE. PROCTOR PATENT. [place] [facility] [place] PATIENT TO CONTINUE WITH POC.
[2020-02-23] VITALS (18 sets, daily range): BP systolic 150–216; BP diastolic 62–189
--- NOTE | 2020-02-23 03:16 | NUR ---
1950 LAB RESULTS CALLED TO [place] DIRECTOR OF KNOWLEDGE MANAGEMENT. NO NEW ORDERS. PATIENT'S ASSESMENT DONE FOUND PICC CAUGHT ON SIDERAIL AND PULLED OUT PARTWAY. CLEANSED AREA OF SKIN AND TUBE SHOWING AND SECURED WITH OPSITE. PATIENT WITH COMPLAINTS OF RESTLESS LEGS. 2014 NOTIFIED DIRECTOR OF KNOWLEDGE MANAGEMENT. ORDERS TO XRAY PICC IN RIGHT ARM, AND FOR CLONAZAPAM FOR RESTLESS LEGS. [address] GUY CALLED TO ORDER CRYOCIPITATE 6 UNITS FOR LOW FIBROGIN LEVEL. 2129 CALLED FOR PERMIT FOR BLOOD PRODUCTS. 2 NURSES TO LISTEN. TEACHING DONE AND OK FROM . 2142 DIRECTOR OF KNOWLEDGE MANAGEMENT CALLED WITH XRAY RESULTS. OK TO USE PIV. 2238 DR WILLETT CALLED DUE TO LAB STATES THE CRYO COMES IN PACKS OF 5. OK TO GIVE [address] 2350 HANGING PACK OF CRYO PER ORDERS. PATIENT SLEEPING WITHOUT FURTHER COMPLAINTS. 0 DIRECTOR OF KNOWLEDGE MANAGEMENT ON FLOOR AND NOTIFIED OF ELEVATED BP'S. STATES WILL LOOK AT PATIENT'S CHART.
[2020-02-23 04:06] LABS: HIV ANTIBODY Non Reactive (Non Reactive)
--- NOTE | 2020-02-23 06:40 | NUR ---
SLEPT MOST OF SHIFT. AWAKE NOW AND ORIENTED TO PERSON AND TIME. INSISTS HE IS NOT IN HOSPITAL, TRYING TO GET OUT OF BED AND WANTS FOOD. CALLING OUT FOR BREATHING TREATMENT AND RT HERE. REORIENTED TO PLACE AND TIME MULTIPLE TIMES. WORKING ON GOALS AND PLAN OF CARE FOR NOC. PLANS FOR TRANSFER TO [facility] TODAY FOR FURTHER TREATMENT. HYDRALIZINE GIVEN IV AT 0430 FOR ELEVATED BP. CALLING OUT FOR . CONTINUE TO WATCH CLOSELY. BED ALARM ON.
[2020-02-23 07:46] LABS: HEMATOCRIT 33.6 % (42.0-52.0); HEMOGLOBIN 11.2 gm/dL (14.0-18.0); MCH 29.6 pg (26.0-34.0); MCHC 33.1 g/dL (28.0-37.0); MCV 89.4 fL (80.0-100.0); PLATELET COUNT 37 thou/uL (150-400); RBC 3.77 mil/uL (4.50-6.00); RDW 17.7 % (10.5-14.5)
[2020-02-23 07:48] LABS: WBC 84.3 thou/uL (4.0-11.0)
[2020-02-23 08:04] LABS: ALBUMIN 3.3 g/dL (3.4-5.0); CALCIUM 8.7 mg/dL (8.5-10.1); CREATININE 0.7 mg/dL (0.7-1.3); MAGNESIUM 2.4 mg/dL (1.8-2.4); POTASSIUM 3.9 mmol/L (3.5-5.1); TOTAL BILIRUBIN 0.4 mg/dL (0.2-1.0); TOTAL PROTEIN 6.9 g/dL (6.4-8.2)
[2020-02-23 08:06] LABS: APTT 24.9 Seconds (24.5-32.8); INR 1.7; PROTIME 17.4 Seconds (9.3-11.4)
[2020-02-23 08:27] LABS: D-DIMER 27.18 ug/mLFEU (0.19-0.50)
--- NOTE | 2020-02-23 08:55 | NUR ---
ASSESS TELE WITH DR. GARCIA AND ALICIA IS SINUS WITH PACS,PVCS IN THE 70'S.
[2020-02-23 09:28] LABS: ABSOLUTE NEUTROPHILS 5.1 thou/uL (1.4-8.2); ATYPICAL LYMPHS 1 %; NUCLEATED RBCS 4 /100WBC
[2020-02-23 09:32] LABS: BLASTS 35 %
--- NOTE | 2020-02-23 09:37 | NUR ---
ASSESS PT WITH DR MATAMOROS AND SPOKE WITH DR CARMONA. PT HAVING INCREASED WORK OF BREATHING AND WILL NEED INFUSION OF PLATELETS AND CRYOPRECIPATATE. INSTRUCTED TO TRANSFER PT TO ICU FOR CLOSER MONITORING. TRANSFER PT WITH LAKEISHA FIORE AND BEDSIDE REPORT GIVEN TO ALVINO AND CHRIS FIORE. SPOKE WITH TRANSFER TEAM AT AND GAVE UPDATE.
--- NOTE | 2020-02-23 09:39 | NUR ---
Pt TRANSFERRED TO ICU THIS MORNING. POSSIBLE TRANSFER TO [facility] PER CM AND RN. WILL NEED NEW PT ORDERS TO RESUME PT INTERVENTIONS WHEN Pt MEDICALLY APPROPRIATE FOR PT.
--- NOTE | 2020-02-23 10:01 | NUR ---
PATIENT TRANSFERRED TO ICU BY 2 RN'S ON BED; PATIENT TACHYPNEIC RR MID 20s; HYPERTENSIVE 180s/90s; HR 60s; LETHARGIC; SOA, UNABLE TO COMPLETE SENTENCES; BLOOD PRODUCTS ORDERED; PROCTOR CATHETER IN PLACE WITH BLOOD AROUND MEATUS AND BLOODY URINE OUTPUT; BELONGINGS (TOOTHBRUSH/TOOTHPASTE/DENTURES) WITH PATIENT. PATIENT'S AT THE BEDSIDE, DR. CARMONA AT THE BEDSIDE UPDATING SPOUSE ON POC.
--- NOTE | 2020-02-23 17:31 | NUR ---
Bed avail at [facility]. Accepting phys Dr Gonzales bed N413. [facility] for anytime planning at 1800. Chart copied. Emtala signed. at bedside aware of transfer. Notified phys.
== END 2020-02-23 18:45 | disposition short-term general hospital (02) | DRG 871 ==
LOC: ER 17:04 → EROBS 20:07 → ICU 20:07 → 2N 02-22 03:07 → ICU 02-23 09:19
PROVIDERS: Internal Medicine Hematology & Oncology; Internal Medicine Pulmonary Disease; Nurse Practitioner; Nurse Practitioner Family; Specialist; Student in an Organized Health Care Education/Training Program; ADMIT Internal Medicine; ATTEND Internal Medicine
PROC: 5A09357 Assistance with Respiratory Ventilation, Less than 24 Consecutive Hours, Continuous Positive Airway Pressure (ICD-10-PCS; principal; 2020-02-20)
PROC: 02HV33Z Insertion of Infusion Device into Superior Vena Cava, Percutaneous Approach (ICD-10-PCS; 2020-02-21)
PROC: 30233M1 Transfusion of Nonautologous Plasma Cryoprecipitate into Peripheral Vein, Percutaneous Approach (ICD-10-PCS; 2020-02-23)
PROC: 30233R1 Transfusion of Nonautologous Platelets into Peripheral Vein, Percutaneous Approach (ICD-10-PCS; 2020-02-23)
DX: A41.9 Sepsis, unspecified organism (principal); J96.21 Acute and chronic respiratory failure with hypoxia; J44.1 Chronic obstructive pulmonary disease with (acute) exacerbation; N39.0 Urinary tract infection, site not specified; C92.00 Acute myeloblastic leukemia, not having achieved remission; Z20.828 Contact with and (suspected) exposure to other viral communicable diseases; F32.9 Major depressive disorder, single episode, unspecified; N40.0 Benign prostatic hyperplasia without lower urinary tract symptoms; G89.4 Chronic pain syndrome; R65.20 Severe sepsis without septic shock; D69.6 Thrombocytopenia, unspecified; E78.00 Pure hypercholesterolemia, unspecified; Z79.52 Long term (current) use of systemic steroids; Z85.51 Personal history of malignant neoplasm of bladder; Z90.49 Acquired absence of other specified parts of digestive tract; Z87.442 Personal history of urinary calculi; Z87.891 Personal history of nicotine dependence; Z81.8 Family history of other mental and behavioral disorders; I05.2 Rheumatic mitral stenosis with insufficiency; I44.7 Left bundle-branch block, unspecified; F41.9 Anxiety disorder, unspecified; R58 Hemorrhage, not elsewhere classified; Z79.891 Long term (current) use of opiate analgesic; Z99.81 Dependence on supplemental oxygen
CPT/HCPCS: 10078; 10081; 10203; 27000